=== PATIENT | female | born 1950 | race Caucasian/White ===

== ENCOUNTER 2017-09-11 13:59 | Inpatient (IN) | payer OTHER ==
[~2017-09-11] VITALS: Ht 165.1 cm; Wt 52.6 kg
[~2017-09-11 13:59] MED LIST: ACET250 PO; ACET325 PO; ALBU3IS; ALBU3IS INH; ALBU8HFA2 INH; ALBU90OI; ALBU90OI INH; ALBU90OI6 INH; AMOCLA875 PO; AMOX500 PO; ARIP15; ARIP30 PO; ASPI81EC PO; ATOR10; ATOR20 PO; AZIT250 PO; Advair Hfa 230-12 GM INH; Albuterol2.5 MG/0.5 INH; Aspir 8181 MG PO; BACL10 PO; BISA10S PR; CARV6.25 PO; CHOL10002 PO; CITA20 PO; CLON1; CLOP75 PO; CLOT10 PO; CYCL10 PO; Carbidopa-Levo1 EAC1 PO; DOCU100 PO; DOXY100 PO; DULERA 100 MCG/13 GM INH; DULERA 200 MCG/13 GM INH; Duoneb 2.5-0.5 M3 ML INH; ELIQUIS2.5 MG PO; ERGO400 PO; Ecotrin Low Strength; FAMO20 PO; FERR325 PO; FLUO10 PO; FORM12IH IH; FURO40 PO; Furosemide20 MG PO; GABA300; GABA300 PO; GUAI600T33 PO; HYDACE5 PO; HYDMOR2 PO; HYDPAM25; HYDR1TAB94 PO; IBUP600; IBUP600 PO; IBUP800 PO; IPRA.03NI; Ipratr-Albuterol3 ML IH; LAMO100; LAMO100 PO; LAVAP17G PO; LEVFLO250 PO; LEVFLO500 PO; LEVO750 PO; LEVOFLOXACIN500 MG; LIDO700A20 TOP; LIDOCAINE1 EACH TOP; LOSA25 PO; METPRE4DP PO; MONDOXYNE NL100 MG PO; Mirapex0.5 MG; Mucinex600 MG PO; NAPR500; NAPR550 PO; NEBI10 PO; NICO14TP; NITR.4SL SL; NYST100000 PO; NYST100SU MT; NYST100SU PO; NYSTATIN1 EAC1 PO; Nitrostat0.4 MG SL; OLAN10; OLAN5A; OXYACE5T PO; OXYB5; OXYC5 PO; Oxycodone HCl5 M1; PANT40; PANT40 PO; PENVK500 PO; POTCHL20ER PO; PRAM.5 PO; PRED10 PO; PRED20 PO; PROCODE120 PO; Prednisone10 MG PO; Prednisone20 MG PO; Prozac20 MG; Prozac20 MG PO; RANI150; ROBITUSSIN COU237 ML PO; ROPI.25; SERT100; SERT100 PO; SPIR25 PO; SPIRIVA RESPIMAT4 G1 INH; SPIRIVA RESPIMAT4 GM IH; SUCR1 PO; SULTRIDS PO; TIOT18; TIOT18 INH; TRAM50 PO; TRAZ100; Toprol Xl50 MG PO; Tylenol325 MG PO; VARE1 PO; VITAMIN D31000 UNIT PO; XARELTO20 MG PO; ZYPREXA; Zithromax250 MG PO
[2017-09-11 14:55] LABS: PCO2 Arterial 51.5 mmHg (35-45); PO2 Arterial 54.8 mmHg (80-100); pH Blood Arterial 7.35 (7.35-7.45)
[2017-09-11 14:56] LABS: BASOPHILS ABSOLUTE AUTO 0.08 K/mm3 (0.00-0.23); BASOPHILS PERCENT AUTO 0 % (0-2); EOSINOPHILS ABSOLUTE AUTO 0.15 K/mm3 (0.00-0.68); EOSINOPHILS PERCENT AUTO 1 % (0-6); Hematocrit 27.1 % (33.0-51.0); Hemoglobin 7.6 g/dL (11.5-16.0); IMMATURE GRAN ABSOLUTE AUTO 0.34 K/mm3 (0.00-0.10); IMMATURE GRAN PERCENT AUTO 1 % (0-1); LYMPHOCYTES ABSOLUTE AUTO 1.32 K/mm3 (0.84-5.20); LYMPHOCYTES PERCENT AUTO 5 % (21-46); MONOCYTES ABSOLUTE AUTO 1.41 K/mm3 (0.16-1.47); MONOCYTES PERCENT AUTO 5 % (4-13); Mean Corpuscular HGB 19.9 pg (26.0-34.0); Mean Corpuscular Volume 71 fL (80-100); Mean Platelet Volume 10.5 fL (9.1-12.4); NEUTROPHILS ABSOLUTE AUTO 26.23 K/mm3 (1.96-9.15); NEUTROPHILS PERCENT AUTO 89 % (41-73); Platelet Count 404 K/mm3 (150-400); RDW Coefficient Variation 18.5 % (11.7-14.2); RDW Standard Deviation 46.5 fL (35.1-46.3); Red Blood Cell Count 3.82 M/mm3 (3.80-5.20); White Blood Cell Count 29.53 K/mm3 (4.00-11.30)
[2017-09-11 15:06] LABS: Albumin, Blood 2.8 g/dL (3.4-5.0); Albumin/Globulin Ratio 0.9 (0.8-1.8); Bilirubin, Total 1.1 mg/dL (0.1-1.0); Bun/Creatinine Ratio 24.8 (12.0-20.0); Calcium, Blood 7.6 mg/dL (8.5-10.1); Creatinine, Blood 1.09 mg/dL (0.40-1.00); Globulin, Blood 3.1 g/dL (2.2-4.0); Potassium, Blood 3.4 mmol/L (3.5-5.5); Total Protein, Blood 5.9 g/dL (6.4-8.2)
[2017-09-11 15:17] LABS: BASOPHILS ABSOLUTE MAN 0.29 K/mm3 (0.00-0.23); BASOPHILS PERCENT MAN 1 % (0-2); EOSINOPHILS ABSOLUTE MAN 0.29 K/mm3 (0.00-0.68); EOSINOPHILS PERCENT MAN 1 % (0-6); LYMPHOCYTES ABSOLUTE MAN 1.77 K/mm3 (0.84-5.20); LYMPHOCYTES PERCENT MAN 6 % (21-46); MONOCYTES ABSOLUTE MAN 0.29 K/mm3 (0.16-1.47); MONOCYTES PERCENT MAN 1 % (4-13); NEUTROPHILS ABSOLUTE MAN 26.87 K/mm3 (1.96-9.15); SEG NEUTROPHILS PERCENT MAN 91 % (41-73); TOTAL CELLS COUNTED 100
[2017-09-11 15:20] LABS: Influenza A Negative (NEGATIVE); Influenza B Negative (NEGATIVE)
[2017-09-12] MEDS ORDERED: IBUP800 PO (01:25)
[2017-09-12 06:04] LABS: BASOPHILS ABSOLUTE AUTO 0.09 K/mm3 (0.00-0.23); BASOPHILS PERCENT AUTO 0 % (0-2); EOSINOPHILS ABSOLUTE AUTO 0.16 K/mm3 (0.00-0.68); EOSINOPHILS PERCENT AUTO 1 % (0-6); Hematocrit 27.7 % (33.0-51.0); Hemoglobin 7.7 g/dL (11.5-16.0); IMMATURE GRAN ABSOLUTE AUTO 0.39 K/mm3 (0.00-0.10); IMMATURE GRAN PERCENT AUTO 1 % (0-1); LYMPHOCYTES ABSOLUTE AUTO 1.54 K/mm3 (0.84-5.20); LYMPHOCYTES PERCENT AUTO 5 % (21-46); MONOCYTES ABSOLUTE AUTO 2.18 K/mm3 (0.16-1.47); MONOCYTES PERCENT AUTO 7 % (4-13); Mean Corpuscular HGB 19.6 pg (26.0-34.0); Mean Corpuscular HGB Conc 27.8 g/dL (31.5-36.5); Mean Corpuscular Volume 71 fL (80-100); Mean Platelet Volume 10.5 fL (9.1-12.4); NEUTROPHILS ABSOLUTE AUTO 28.76 K/mm3 (1.96-9.15); NEUTROPHILS PERCENT AUTO 87 % (41-73); Platelet Count 427 K/mm3 (150-400); RDW Coefficient Variation 18.6 % (11.7-14.2); RDW Standard Deviation 46.3 fL (35.1-46.3); Red Blood Cell Count 3.92 M/mm3 (3.80-5.20); White Blood Cell Count 33.12 K/mm3 (4.00-11.30)
[2017-09-12 06:42] LABS: Anion Gap 7 mmol/L (6-16); Blood Urea Nitrogen 25 mg/dL (8-24); Bun/Creatinine Ratio 25.9 (12.0-20.0); CO2, Blood 29 mmol/L (21-32); Calcium, Blood 8.4 mg/dL (8.5-10.1); Chloride, Blood 105 mmol/L (98-108); Creatinine, Blood 0.97 mg/dL (0.40-1.00); Glomerular Filtration Rate >60 (60-); Glucose, Blood 93 mg/dL (70-99); Potassium, Blood 3.7 mmol/L (3.5-5.5); Sodium, Blood 141 mmol/L (136-145)
[2017-09-13 06:00] LABS: Hematocrit 28.9 % (33.0-51.0); Hemoglobin 7.9 g/dL (11.5-16.0); Mean Corpuscular HGB 19.5 pg (26.0-34.0); Mean Corpuscular HGB Conc 27.3 g/dL (31.5-36.5); Mean Corpuscular Volume 71 fL (80-100); Mean Platelet Volume 10.6 fL (9.1-12.4); Platelet Count 413 K/mm3 (150-400); RDW Coefficient Variation 18.7 % (11.7-14.2); RDW Standard Deviation 47.6 fL (35.1-46.3); Red Blood Cell Count 4.05 M/mm3 (3.80-5.20); White Blood Cell Count 18.81 K/mm3 (4.00-11.30)
[2017-09-14 05:15] LABS: Hemoglobin 7.9 g/dL (11.5-16.0); Mean Corpuscular HGB 19.8 pg (26.0-34.0); Mean Corpuscular HGB Conc 28.2 g/dL (31.5-36.5); Mean Corpuscular Volume 70 fL (80-100); Platelet Count 424 K/mm3 (150-400); RDW Coefficient Variation 18.5 % (11.7-14.2); RDW Standard Deviation 45.8 fL (35.1-46.3); White Blood Cell Count 14.56 K/mm3 (4.00-11.30)
[2017-09-14] MEDS ORDERED: LEVO750 PO (12:22)
[2017-09-14] MEDS ORDERED: ALBU3IS INH (12:23)
[2017-09-14] MEDS ORDERED: OXYC5 PO (12:24)
[2017-09-14] MEDS ORDERED: PRAM.5 PO (12:25)
[2017-09-14] MEDS ORDERED: Ferrous Sulfat325 MG PO (12:25)
[2017-09-14] MEDS ORDERED: GAVILAX17 GM PO (12:26)
[2017-09-19] MEDS ORDERED: SPIRIVA RESPIMAT4 G1 INH (13:57)
[2018-01-20] MEDS ORDERED: Albuterol2.5 MG/0.5 INH (10:41)
[2018-01-20] MEDS ORDERED: NITR.4SL SL (10:41)
[2018-01-20] MEDS ORDERED: Ipratr-Albuterol3 ML INH (10:42)
[2018-01-20] MEDS ORDERED: ASPI81CH PO (10:43)
[2018-01-20] MEDS ORDERED: Prozac20 MG PO (10:43)
[2018-01-20] MEDS ORDERED: NYST100000 MT (10:44)
[2018-01-20] MEDS ORDERED: FLONASE ALLERG9.9 ML INH (10:44)
[2018-01-20] MEDS ORDERED: MIRALAX17 GM PO (10:46)
== END 2017-09-14 13:43 | disposition home health service (06) | DRG 871 ==
LOC: ER 13:59 → MEDS 14:00 → ER 14:00 → MEDS 17:41 → ER 17:42 → MEDS 17:42 → ENPENDDIS 09-14 10:30 → MEDS 09-14 13:43
PROVIDERS: Emergency Medicine; Internal Medicine
DX: A41.9 Sepsis, unspecified organism (principal); J18.9 Pneumonia, unspecified organism; J96.21 Acute and chronic respiratory failure with hypoxia; I11.0 Hypertensive heart disease with heart failure; I50.42 Chronic combined systolic (congestive) and diastolic (congestive) heart failure; J96.12 Chronic respiratory failure with hypercapnia; J96.22 Acute and chronic respiratory failure with hypercapnia; J44.1 Chronic obstructive pulmonary disease with (acute) exacerbation; D64.9 Anemia, unspecified; D72.829 Elevated white blood cell count, unspecified; F32.9 Major depressive disorder, single episode, unspecified; F43.10 Post-traumatic stress disorder, unspecified; G25.81 Restless legs syndrome; I25.5 Ischemic cardiomyopathy; Z74.09 Other reduced mobility; Z79.01 Long term (current) use of anticoagulants; Y95 Nosocomial condition; Z87.891 Personal history of nicotine dependence
CPT/HCPCS: 36415; 36600; 71046; 73502; 80048; 80053; 82565; 82803; 83880; 84145; 85025; 85027; 86850; 86900; 86901; 87070; 87205; 87449; 87804; 94640; 94644; 94760; 96374; 99285; J1650; J1956; J2185; J2916; J3370; J7030

== ENCOUNTER 2018-01-06 10:08 | Observation (INO) | payer OTHER ==
[~2018-01-06] VITALS: Ht 165.1 cm; Wt 58.1 kg
[~2018-01-06 10:08] MED LIST changes: +Ferrous Sulfat325 MG PO; +GAVILAX17 GM PO
[2018-01-06] MEDS ORDERED: XARELTO20 MG PO (10:38)
[2018-01-06 10:47] LABS: BASOPHILS ABSOLUTE AUTO 0.06 K/mm3 (0.00-0.23); BASOPHILS PERCENT AUTO 0 % (0-2); EOSINOPHILS ABSOLUTE AUTO 0.09 K/mm3 (0.00-0.68); EOSINOPHILS PERCENT AUTO 1 % (0-6); Hematocrit 31.2 % (33.0-51.0); Hemoglobin 8.9 g/dL (11.5-16.0); IMMATURE GRAN ABSOLUTE AUTO 0.13 K/mm3 (0.00-0.10); IMMATURE GRAN PERCENT AUTO 1 % (0-1); LYMPHOCYTES ABSOLUTE AUTO 1.08 K/mm3 (0.84-5.20); LYMPHOCYTES PERCENT AUTO 7 % (21-46); MONOCYTES ABSOLUTE AUTO 2.27 K/mm3 (0.16-1.47); MONOCYTES PERCENT AUTO 14 % (4-13); Mean Corpuscular HGB 20.4 pg (26.0-34.0); Mean Corpuscular HGB Conc 28.5 g/dL (31.5-36.5); Mean Corpuscular Volume 71 fL (80-100); Mean Platelet Volume 10.3 fL (9.1-12.4); NEUTROPHILS PERCENT AUTO 77 % (41-73); Platelet Count 221 K/mm3 (150-400); RDW Coefficient Variation 18.5 % (11.7-14.2); RDW Standard Deviation 47.4 fL (35.1-46.3); Red Blood Cell Count 4.37 M/mm3 (3.80-5.20); White Blood Cell Count 16.13 K/mm3 (4.00-11.30)
[2018-01-06 11:03] LABS: Troponin I 0.066 ng/mL (0.000-0.040)
[2018-01-06 11:04] LABS: Alanine Aminotransfer (ALT/SGP 19 U/L (12-78); Albumin, Blood 2.6 g/dL (3.4-5.0); Albumin/Globulin Ratio 0.7 (0.8-1.8); Alk Phos 136 U/L (50-136); Anion Gap 6 mmol/L (6-16); Aspartate Aminotrans (AST/SGOT 12 U/L (12-37); Bilirubin, Total 0.7 mg/dL (0.1-1.0); Blood Urea Nitrogen 13 mg/dL (8-24); Bun/Creatinine Ratio 17.5 (12.0-20.0); CO2, Blood 31 mmol/L (21-32); Calcium, Blood 8.3 mg/dL (8.5-10.1); Chloride, Blood 105 mmol/L (98-108); Creatinine, Blood 0.74 mg/dL (0.40-1.00); Globulin, Blood 3.6 g/dL (2.2-4.0); Glomerular Filtration Rate >60 (60-); Glucose, Blood 103 mg/dL (70-99); Potassium, Blood 3.9 mmol/L (3.5-5.5); Sodium, Blood 142 mmol/L (136-145); Total Protein, Blood 6.2 g/dL (6.4-8.2)
[2018-01-06] MEDS ORDERED: ALBU90OI61 INH (16:01)
[2018-01-06] MEDS ORDERED: DICL25ER (16:08)
[2018-01-07 04:55] LABS: BASOPHILS ABSOLUTE AUTO 0.02 K/mm3 (0.00-0.23); BASOPHILS PERCENT AUTO 0 % (0-2); EOSINOPHILS PERCENT AUTO 0 % (0-6); Hematocrit 33.6 % (33.0-51.0); Hemoglobin 9.5 g/dL (11.5-16.0); IMMATURE GRAN ABSOLUTE AUTO 0.06 K/mm3 (0.00-0.10); IMMATURE GRAN PERCENT AUTO 1 % (0-1); LYMPHOCYTES ABSOLUTE AUTO 0.48 K/mm3 (0.84-5.20); LYMPHOCYTES PERCENT AUTO 5 % (21-46); MONOCYTES ABSOLUTE AUTO 0.42 K/mm3 (0.16-1.47); MONOCYTES PERCENT AUTO 4 % (4-13); Mean Corpuscular HGB 20.2 pg (26.0-34.0); Mean Corpuscular HGB Conc 28.3 g/dL (31.5-36.5); Mean Corpuscular Volume 72 fL (80-100); Mean Platelet Volume 11.1 fL (9.1-12.4); NEUTROPHILS ABSOLUTE AUTO 9.64 K/mm3 (1.96-9.15); NEUTROPHILS PERCENT AUTO 91 % (41-73); Platelet Count 243 K/mm3 (150-400); RDW Coefficient Variation 18.5 % (11.7-14.2); RDW Standard Deviation 46.8 fL (35.1-46.3); White Blood Cell Count 10.62 K/mm3 (4.00-11.30)
[2018-01-07 05:14] LABS: Anion Gap 5 mmol/L (6-16); Blood Urea Nitrogen 27 mg/dL (8-24); Bun/Creatinine Ratio 30.4 (12.0-20.0); CO2, Blood 32 mmol/L (21-32); Calcium, Blood 8.8 mg/dL (8.5-10.1); Chloride, Blood 104 mmol/L (98-108); Creatinine, Blood 0.89 mg/dL (0.40-1.00); Glomerular Filtration Rate >60 (60-); Glucose, Blood 187 mg/dL (70-99); Potassium, Blood 4.3 mmol/L (3.5-5.5); Sodium, Blood 141 mmol/L (136-145)
== END 2018-01-07 11:49 | disposition home or self-care (01) ==
LOC: ER 10:08 → MEDS 10:09 → ER 12:33 → MEDS 12:33
PROVIDERS: Emergency Medicine; Hospitalist
DX: J96.21 Acute and chronic respiratory failure with hypoxia (principal); J44.1 Chronic obstructive pulmonary disease with (acute) exacerbation; I11.0 Hypertensive heart disease with heart failure; I50.20 Unspecified systolic (congestive) heart failure; I25.5 Ischemic cardiomyopathy; K21.9 Gastro-esophageal reflux disease without esophagitis; E78.5 Hyperlipidemia, unspecified; F43.10 Post-traumatic stress disorder, unspecified; F32.9 Major depressive disorder, single episode, unspecified; Z95.5 Presence of coronary angioplasty implant and graft; Z79.02 Long term (current) use of antithrombotics/antiplatelets; Z79.82 Long term (current) use of aspirin; Z79.899 Other long term (current) drug therapy; Z88.0 Allergy status to penicillin; Z88.8 Allergy status to other drugs, medicaments and biological substances; Z91.041 Radiographic dye allergy status; Z87.891 Personal history of nicotine dependence
CPT/HCPCS: 36415; 71046; 80048; 80053; 83880; 84484; 85025; 93005; 93010; 94640; 94760; 96374; 96375; 96376; 99285; G0378; J1940; J2930

== ENCOUNTER 2018-01-20 09:31 | Inpatient (IN) | payer OTHER ==
[~2018-01-20] VITALS: Ht 165.1 cm; Wt 58.2 kg
[~2018-01-20 09:31] MED LIST changes: +ALBU90OI61 INH; +DICL25ER
[2018-01-20 09:58] LABS: BASOPHILS ABSOLUTE AUTO 0.07 K/mm3 (0.00-0.23); BASOPHILS PERCENT AUTO 0 % (0-2); EOSINOPHILS ABSOLUTE AUTO 0.13 K/mm3 (0.00-0.68); EOSINOPHILS PERCENT AUTO 1 % (0-6); Hematocrit 28.7 % (33.0-51.0); IMMATURE GRAN ABSOLUTE AUTO 0.11 K/mm3 (0.00-0.10); IMMATURE GRAN PERCENT AUTO 1 % (0-1); LYMPHOCYTES ABSOLUTE AUTO 0.95 K/mm3 (0.84-5.20); LYMPHOCYTES PERCENT AUTO 6 % (21-46); MONOCYTES ABSOLUTE AUTO 1.37 K/mm3 (0.16-1.47); MONOCYTES PERCENT AUTO 8 % (4-13); Mean Corpuscular HGB 20.1 pg (26.0-34.0); Mean Corpuscular HGB Conc 27.9 g/dL (31.5-36.5); Mean Corpuscular Volume 72 fL (80-100); Mean Platelet Volume 10.5 fL (9.1-12.4); NEUTROPHILS ABSOLUTE AUTO 14.68 K/mm3 (1.96-9.15); NEUTROPHILS PERCENT AUTO 85 % (41-73); Platelet Count 379 K/mm3 (150-400); RDW Coefficient Variation 18.9 % (11.7-14.2); RDW Standard Deviation 48.4 fL (35.1-46.3); Red Blood Cell Count 3.99 M/mm3 (3.80-5.20); White Blood Cell Count 17.31 K/mm3 (4.00-11.30)
[2018-01-20 10:14] LABS: Alanine Aminotransfer (ALT/SGP 19 U/L (12-78); Albumin, Blood 2.5 g/dL (3.4-5.0); Albumin/Globulin Ratio 0.6 (0.8-1.8); Alk Phos 150 U/L (50-136); Anion Gap 6 mmol/L (6-16); Aspartate Aminotrans (AST/SGOT 10 U/L (12-37); Bilirubin, Total 0.8 mg/dL (0.1-1.0); Blood Urea Nitrogen 17 mg/dL (8-24); Bun/Creatinine Ratio 23.1 (12.0-20.0); CO2, Blood 31 mmol/L (21-32); Calcium, Blood 8.2 mg/dL (8.5-10.1); Chloride, Blood 105 mmol/L (98-108); Creatinine, Blood 0.74 mg/dL (0.40-1.00); Glomerular Filtration Rate >60 (60-); Glucose, Blood 158 mg/dL (70-99); Potassium, Blood 4.4 mmol/L (3.5-5.5); Sodium, Blood 142 mmol/L (136-145); Total Protein, Blood 6.5 g/dL (6.4-8.2)
[2018-01-20] MEDS ORDERED: ATOR20 PO (10:38)
[2018-01-20] MEDS ORDERED: PRAM.5 PO (10:39)
[2018-01-20] MEDS ORDERED: CARV6.25 PO (10:40)
[2018-01-20] MEDS ORDERED: FURO40 PO (10:40)
[2018-01-20] MEDS ORDERED: POTCHL20ER PO (10:40)
[2018-01-20] MEDS ORDERED: XARELTO20 MG PO (10:41)
[2018-01-20] MEDS ORDERED: NITR.4SL (10:41)
[2018-01-20] MEDS ORDERED: Albuterol2.5 MG/0.5 (10:41)
[2018-01-20] MEDS ORDERED: CLOT10 (10:41)
[2018-01-20] MEDS ORDERED: ALBU90OI6 (10:42)
[2018-01-20] MEDS ORDERED: Ipratr-Albuterol3 ML (10:42)
[2018-01-20] MEDS ORDERED: TIOT18 (10:43)
[2018-01-20] MEDS ORDERED: DULERA 200 MCG/13 GM (10:43)
[2018-01-20] MEDS ORDERED: Prozac20 MG (10:43)
[2018-01-20] MEDS ORDERED: LOSA25 PO (10:43)
[2018-01-20] MEDS ORDERED: ASPI81CH (10:43)
[2018-01-20] MEDS ORDERED: IBUP600 (10:43)
[2018-01-20] MEDS ORDERED: FLONASE SENSIM9.9 ML (10:44)
[2018-01-20] MEDS ORDERED: ERGO400 (10:44)
[2018-01-20] MEDS ORDERED: NYST100000 (10:44)
[2018-01-20] MEDS ORDERED: OXYC5 PO (10:45)
[2018-01-20] MEDS ORDERED: CLOP75 PO (10:45)
[2018-01-20] MEDS ORDERED: Ferrous Sulfat325 M2 PO (10:45)
[2018-01-20] MEDS ORDERED: PANT40 PO (10:45)
[2018-01-20] MEDS ORDERED: MIRALAX17 GM (10:46)
[2018-01-20] MEDS ORDERED: Voltaren100 GM (10:46)
[2018-01-21 05:29] LABS: BASOPHILS ABSOLUTE AUTO 0.02 K/mm3 (0.00-0.23); BASOPHILS PERCENT AUTO 0 % (0-2); EOSINOPHILS PERCENT AUTO 0 % (0-6); Hematocrit 29.5 % (33.0-51.0); Hemoglobin 8.2 g/dL (11.5-16.0); IMMATURE GRAN ABSOLUTE AUTO 0.08 K/mm3 (0.00-0.10); IMMATURE GRAN PERCENT AUTO 1 % (0-1); LYMPHOCYTES ABSOLUTE AUTO 0.49 K/mm3 (0.84-5.20); LYMPHOCYTES PERCENT AUTO 5 % (21-46); MONOCYTES ABSOLUTE AUTO 0.39 K/mm3 (0.16-1.47); MONOCYTES PERCENT AUTO 4 % (4-13); Mean Corpuscular HGB 20.4 pg (26.0-34.0); Mean Corpuscular HGB Conc 27.8 g/dL (31.5-36.5); Mean Corpuscular Volume 73 fL (80-100); Mean Platelet Volume 10.1 fL (9.1-12.4); NEUTROPHILS ABSOLUTE AUTO 9.32 K/mm3 (1.96-9.15); NEUTROPHILS PERCENT AUTO 90 % (41-73); Platelet Count 395 K/mm3 (150-400); RDW Coefficient Variation 18.6 % (11.7-14.2); RDW Standard Deviation 49.7 fL (35.1-46.3); Red Blood Cell Count 4.02 M/mm3 (3.80-5.20)
[2018-01-21] MEDS ORDERED: PRED20 PO (10:55)
== END 2018-01-21 11:20 | disposition home health service (06) | DRG 190 ==
LOC: ER 09:31 → MEDS 11:18 → ENPENDDIS 01-21 09:29 → MEDS 01-21 11:20
PROVIDERS: Emergency Medicine; Internal Medicine
DX: J44.1 Chronic obstructive pulmonary disease with (acute) exacerbation (principal); J96.21 Acute and chronic respiratory failure with hypoxia; I50.40 Unspecified combined systolic (congestive) and diastolic (congestive) heart failure; J84.9 Interstitial pulmonary disease, unspecified; I25.5 Ischemic cardiomyopathy; I11.0 Hypertensive heart disease with heart failure; I25.10 Atherosclerotic heart disease of native coronary artery without angina pectoris; F32.9 Major depressive disorder, single episode, unspecified; E78.5 Hyperlipidemia, unspecified
CPT/HCPCS: 36415; 71045; 80053; 83880; 85025; 93005; 93010; 94640; 94644; 94760; 96365; 97162; 97530; 99285; G8978; G8979; G8980; J0456; J0696; J2920; J7030; J7050

== ENCOUNTER 2018-01-30 12:37 | Inpatient (IN) | payer OTHER ==
[~2018-01-30] VITALS: Ht 165.1 cm; Wt 58.5 kg
[~2018-01-30 12:37] MED LIST changes: +ALBU90OI6; +ASPI81CH PO; +CLOT10; +DULERA 200 MCG/13 GM; +ERGO400; +FLONASE ALLERG9.9 ML INH; +Ferrous Sulfat325 M2 PO; +Ipratr-Albuterol3 ML INH; +MIRALAX17 GM PO; +NYST100000 MT; +Voltaren100 GM
[2018-01-30 13:10] LABS: PCO2 Arterial 44.4 mmHg (35-45); PO2 Arterial 30.9 mmHg (80-100); pH Blood Arterial 7.48 (7.35-7.45)
[2018-01-30 13:29] LABS: BASOPHILS ABSOLUTE AUTO 0.05 K/mm3 (0.00-0.23); BASOPHILS PERCENT AUTO 0 % (0-2); EOSINOPHILS ABSOLUTE AUTO 0.11 K/mm3 (0.00-0.68); EOSINOPHILS PERCENT AUTO 1 % (0-6); Hematocrit 28.2 % (33.0-51.0); IMMATURE GRAN ABSOLUTE AUTO 0.47 K/mm3 (0.00-0.10); IMMATURE GRAN PERCENT AUTO 2 % (0-1); LYMPHOCYTES ABSOLUTE AUTO 0.94 K/mm3 (0.84-5.20); LYMPHOCYTES PERCENT AUTO 4 % (21-46); MONOCYTES ABSOLUTE AUTO 2.07 K/mm3 (0.16-1.47); MONOCYTES PERCENT AUTO 9 % (4-13); Mean Corpuscular HGB 20.1 pg (26.0-34.0); Mean Corpuscular HGB Conc 28.4 g/dL (31.5-36.5); Mean Corpuscular Volume 71 fL (80-100); Mean Platelet Volume 10.6 fL (9.1-12.4); NEUTROPHILS ABSOLUTE AUTO 18.41 K/mm3 (1.96-9.15); NEUTROPHILS PERCENT AUTO 84 % (41-73); Platelet Count 413 K/mm3 (150-400); RDW Coefficient Variation 18.5 % (11.7-14.2); RDW Standard Deviation 46.7 fL (35.1-46.3); Red Blood Cell Count 3.99 M/mm3 (3.80-5.20); White Blood Cell Count 22.05 K/mm3 (4.00-11.30)
[2018-01-30 13:44] LABS: Alanine Aminotransfer (ALT/SGP 24 U/L (12-78); Albumin, Blood 2.2 g/dL (3.4-5.0); Albumin/Globulin Ratio 0.5 (0.8-1.8); Alk Phos 175 U/L (50-136); Anion Gap 8 mmol/L (6-16); Aspartate Aminotrans (AST/SGOT 15 U/L (12-37); Bilirubin, Total 0.5 mg/dL (0.1-1.0); Blood Urea Nitrogen 27 mg/dL (8-24); Bun/Creatinine Ratio 29.2 (12.0-20.0); CO2, Blood 31 mmol/L (21-32); Calcium, Blood 8.4 mg/dL (8.5-10.1); Chloride, Blood 100 mmol/L (98-108); Creatinine, Blood 0.93 mg/dL (0.40-1.00); Globulin, Blood 4.4 g/dL (2.2-4.0); Glomerular Filtration Rate >60 (60-); Glucose, Blood 128 mg/dL (70-99); Magnesium, Blood 2.1 mg/dL (1.6-2.4); Potassium, Blood 5.1 mmol/L (3.5-5.5); Sodium, Blood 139 mmol/L (136-145); Total Protein, Blood 6.6 g/dL (6.4-8.2); Troponin I <0.015 ng/mL (0.000-0.040)
[2018-01-30] MEDS ORDERED: ERGO400 PO (14:06)
[2018-01-30] MEDS ORDERED: CLOT10 (14:07)
[2018-01-30] MEDS ORDERED: DICL25ER PO (14:09)
[2018-01-30] MEDS ORDERED: ALBU90OI6 INH (14:11)
[2018-01-30] MEDS ORDERED: TIOT18 (14:12)
[2018-01-31 04:11] LABS: BASOPHILS ABSOLUTE AUTO 0.03 K/mm3 (0.00-0.23); BASOPHILS PERCENT AUTO 0 % (0-2); EOSINOPHILS PERCENT AUTO 0 % (0-6); Hematocrit 27.7 % (33.0-51.0); Hemoglobin 7.8 g/dL (11.5-16.0); IMMATURE GRAN ABSOLUTE AUTO 0.36 K/mm3 (0.00-0.10); IMMATURE GRAN PERCENT AUTO 2 % (0-1); LYMPHOCYTES ABSOLUTE AUTO 0.51 K/mm3 (0.84-5.20); LYMPHOCYTES PERCENT AUTO 3 % (21-46); MONOCYTES ABSOLUTE AUTO 0.45 K/mm3 (0.16-1.47); MONOCYTES PERCENT AUTO 3 % (4-13); Mean Corpuscular HGB 19.8 pg (26.0-34.0); Mean Corpuscular HGB Conc 28.2 g/dL (31.5-36.5); Mean Corpuscular Volume 71 fL (80-100); Mean Platelet Volume 10.3 fL (9.1-12.4); NEUTROPHILS ABSOLUTE AUTO 15.69 K/mm3 (1.96-9.15); NEUTROPHILS PERCENT AUTO 92 % (41-73); Platelet Count 408 K/mm3 (150-400); RDW Coefficient Variation 18.6 % (11.7-14.2); RDW Standard Deviation 46.9 fL (35.1-46.3); Red Blood Cell Count 3.93 M/mm3 (3.80-5.20); White Blood Cell Count 17.04 K/mm3 (4.00-11.30)
[2018-01-31 04:16] LABS: PCO2 Arterial 58.6 mmHg (35-45); PO2 Arterial 60.3 mmHg (80-100); pH Blood Arterial 7.35 (7.35-7.45)
[2018-01-31 04:32] LABS: Anion Gap 5 mmol/L (6-16); Blood Urea Nitrogen 21 mg/dL (8-24); Bun/Creatinine Ratio 29.2 (12.0-20.0); CO2, Blood 32 mmol/L (21-32); Calcium, Blood 8.8 mg/dL (8.5-10.1); Chloride, Blood 102 mmol/L (98-108); Creatinine, Blood 0.72 mg/dL (0.40-1.00); Glomerular Filtration Rate >60 (60-); Glucose, Blood 179 mg/dL (70-99); Potassium, Blood 5.6 mmol/L (3.5-5.5); Sodium, Blood 139 mmol/L (136-145)
[2018-01-31] MEDS ORDERED: PANT40 PO (18:47)
[2018-01-31] MEDS ORDERED: Mirapex1 MG PO (18:48)
[2018-01-31] MEDS ORDERED: Voltaren100 GM TOP (18:49)
[2018-02-01 05:16] LABS: Hematocrit 28.8 % (33.0-51.0); Hemoglobin 8.4 g/dL (11.5-16.0); Mean Corpuscular HGB Conc 29.2 g/dL (31.5-36.5); Mean Corpuscular Volume 72 fL (80-100); Mean Platelet Volume 10.1 fL (9.1-12.4); NRBC ABSOLUTE 0.04 K/mm3 (0.00-0.02); NRBC Auto 0.2 /100 WBC (0.0-0.2); Platelet Count 457 K/mm3 (150-400); RDW Standard Deviation 49.3 fL (35.1-46.3); White Blood Cell Count 20.34 K/mm3 (4.00-11.30)
[2018-02-01 05:43] LABS: Alanine Aminotransfer (ALT/SGP 22 U/L (12-78); Albumin, Blood 2.1 g/dL (3.4-5.0); Albumin/Globulin Ratio 0.5 (0.8-1.8); Alk Phos 153 U/L (50-136); Anion Gap 7 mmol/L (6-16); Aspartate Aminotrans (AST/SGOT 13 U/L (12-37); Bilirubin, Total 0.4 mg/dL (0.1-1.0); Blood Urea Nitrogen 37 mg/dL (8-24); Bun/Creatinine Ratio 47.3 (12.0-20.0); CO2, Blood 31 mmol/L (21-32); Calcium, Blood 8.8 mg/dL (8.5-10.1); Chloride, Blood 100 mmol/L (98-108); Creatinine, Blood 0.78 mg/dL (0.40-1.00); Globulin, Blood 4.3 g/dL (2.2-4.0); Glomerular Filtration Rate >60 (60-); Glucose, Blood 223 mg/dL (70-99); Potassium, Blood 4.9 mmol/L (3.5-5.5); Sodium, Blood 138 mmol/L (136-145); Total Protein, Blood 6.4 g/dL (6.4-8.2)
[2018-02-01 11:31] LABS: Stool Occult Blood Guaiac 1 Neg (Neg)
[2018-02-02 08:20] LABS: BASOPHILS ABSOLUTE AUTO 0.02 K/mm3 (0.00-0.23); BASOPHILS PERCENT AUTO 0 % (0-2); EOSINOPHILS PERCENT AUTO 0 % (0-6); Hematocrit 29.8 % (33.0-51.0); Hemoglobin 8.6 g/dL (11.5-16.0); IMMATURE GRAN ABSOLUTE AUTO 0.39 K/mm3 (0.00-0.10); IMMATURE GRAN PERCENT AUTO 2 % (0-1); LYMPHOCYTES ABSOLUTE AUTO 0.61 K/mm3 (0.84-5.20); LYMPHOCYTES PERCENT AUTO 4 % (21-46); MONOCYTES ABSOLUTE AUTO 0.68 K/mm3 (0.16-1.47); MONOCYTES PERCENT AUTO 4 % (4-13); Mean Corpuscular HGB 21.1 pg (26.0-34.0); Mean Corpuscular HGB Conc 28.9 g/dL (31.5-36.5); Mean Corpuscular Volume 73 fL (80-100); Mean Platelet Volume 10.1 fL (9.1-12.4); NEUTROPHILS ABSOLUTE AUTO 15.68 K/mm3 (1.96-9.15); NEUTROPHILS PERCENT AUTO 90 % (41-73); NRBC ABSOLUTE 0.03 K/mm3 (0.00-0.02); NRBC Auto 0.2 /100 WBC (0.0-0.2); Platelet Count 476 K/mm3 (150-400); RDW Coefficient Variation 19.9 % (11.7-14.2); RDW Standard Deviation 51.9 fL (35.1-46.3); Red Blood Cell Count 4.07 M/mm3 (3.80-5.20); White Blood Cell Count 17.38 K/mm3 (4.00-11.30)
[2018-02-02 08:41] LABS: Anion Gap 6 mmol/L (6-16); Blood Urea Nitrogen 41 mg/dL (8-24); Bun/Creatinine Ratio 60.3 (12.0-20.0); CO2, Blood 35 mmol/L (21-32); Calcium, Blood 8.5 mg/dL (8.5-10.1); Chloride, Blood 98 mmol/L (98-108); Creatinine, Blood 0.68 mg/dL (0.40-1.00); Glomerular Filtration Rate >60 (60-); Glucose, Blood 128 mg/dL (70-99); Magnesium, Blood 2.3 mg/dL (1.6-2.4); Potassium, Blood 5.3 mmol/L (3.5-5.5); Sodium, Blood 139 mmol/L (136-145)
[2018-02-02 08:44] LABS: Vancomycin, Trough 20.5 ug/mL (5.0-10.0)
[2018-02-03 05:12] LABS: BASOPHILS ABSOLUTE AUTO 0.02 K/mm3 (0.00-0.23); BASOPHILS PERCENT AUTO 0 % (0-2); EOSINOPHILS PERCENT AUTO 0 % (0-6); Hematocrit 31.5 % (33.0-51.0); IMMATURE GRAN ABSOLUTE AUTO 0.42 K/mm3 (0.00-0.10); IMMATURE GRAN PERCENT AUTO 3 % (0-1); LYMPHOCYTES PERCENT AUTO 4 % (21-46); MONOCYTES ABSOLUTE AUTO 0.91 K/mm3 (0.16-1.47); MONOCYTES PERCENT AUTO 6 % (4-13); Mean Corpuscular HGB 21.1 pg (26.0-34.0); Mean Corpuscular HGB Conc 28.6 g/dL (31.5-36.5); Mean Corpuscular Volume 74 fL (80-100); Mean Platelet Volume 9.8 fL (9.1-12.4); NEUTROPHILS ABSOLUTE AUTO 12.29 K/mm3 (1.96-9.15); NEUTROPHILS PERCENT AUTO 86 % (41-73); Platelet Count 463 K/mm3 (150-400); RDW Coefficient Variation 20.3 % (11.7-14.2); RDW Standard Deviation 53.5 fL (35.1-46.3); Red Blood Cell Count 4.26 M/mm3 (3.80-5.20); White Blood Cell Count 14.24 K/mm3 (4.00-11.30)
[2018-02-03 05:32] LABS: Albumin, Blood 2.2 g/dL (3.4-5.0); Anion Gap 4 mmol/L (6-16); Blood Urea Nitrogen 35 mg/dL (8-24); Bun/Creatinine Ratio 52.8 (12.0-20.0); CO2, Blood 38 mmol/L (21-32); Calcium, Blood 8.5 mg/dL (8.5-10.1); Chloride, Blood 98 mmol/L (98-108); Creatinine, Blood 0.66 mg/dL (0.40-1.00); Glomerular Filtration Rate >60 (60-); Glucose, Blood 187 mg/dL (70-99); Phosphorus, Blood 3.1 mg/dL (2.5-4.9); Potassium, Blood 4.5 mmol/L (3.5-5.5); Sodium, Blood 140 mmol/L (136-145)
[2018-02-04 03:26] LABS: BASOPHILS ABSOLUTE AUTO 0.02 K/mm3 (0.00-0.23); BASOPHILS PERCENT AUTO 0 % (0-2); EOSINOPHILS PERCENT AUTO 0 % (0-6); Hematocrit 31.6 % (33.0-51.0); Hemoglobin 9.1 g/dL (11.5-16.0); IMMATURE GRAN ABSOLUTE AUTO 0.58 K/mm3 (0.00-0.10); IMMATURE GRAN PERCENT AUTO 4 % (0-1); LYMPHOCYTES ABSOLUTE AUTO 0.57 K/mm3 (0.84-5.20); LYMPHOCYTES PERCENT AUTO 4 % (21-46); MONOCYTES ABSOLUTE AUTO 0.73 K/mm3 (0.16-1.47); MONOCYTES PERCENT AUTO 5 % (4-13); Mean Corpuscular HGB 21.1 pg (26.0-34.0); Mean Corpuscular HGB Conc 28.8 g/dL (31.5-36.5); Mean Corpuscular Volume 73 fL (80-100); Mean Platelet Volume 9.4 fL (9.1-12.4); NEUTROPHILS ABSOLUTE AUTO 13.26 K/mm3 (1.96-9.15); NEUTROPHILS PERCENT AUTO 88 % (41-73); Platelet Count 461 K/mm3 (150-400); RDW Coefficient Variation 20.4 % (11.7-14.2); RDW Standard Deviation 53.4 fL (35.1-46.3); Red Blood Cell Count 4.31 M/mm3 (3.80-5.20); White Blood Cell Count 15.16 K/mm3 (4.00-11.30)
[2018-02-04 03:42] LABS: Albumin, Blood 2.2 g/dL (3.4-5.0); Anion Gap 5 mmol/L (6-16); Blood Urea Nitrogen 34 mg/dL (8-24); Bun/Creatinine Ratio 41.1 (12.0-20.0); CO2, Blood 38 mmol/L (21-32); Calcium, Blood 8.2 mg/dL (8.5-10.1); Chloride, Blood 97 mmol/L (98-108); Creatinine, Blood 0.83 mg/dL (0.40-1.00); Glomerular Filtration Rate >60 (60-); Glucose, Blood 199 mg/dL (70-99); Phosphorus, Blood 2.5 mg/dL (2.5-4.9); Potassium, Blood 4.6 mmol/L (3.5-5.5); Sodium, Blood 140 mmol/L (136-145)
[2018-02-04 11:21] LABS: Vancomycin, Trough 18.1 ug/mL (5.0-10.0)
[2018-02-05 05:33] LABS: BASOPHILS ABSOLUTE AUTO 0.02 K/mm3 (0.00-0.23); BASOPHILS PERCENT AUTO 0 % (0-2); EOSINOPHILS ABSOLUTE AUTO 0.01 K/mm3 (0.00-0.68); EOSINOPHILS PERCENT AUTO 0 % (0-6); Hematocrit 32.4 % (33.0-51.0); Hemoglobin 9.4 g/dL (11.5-16.0); IMMATURE GRAN ABSOLUTE AUTO 0.82 K/mm3 (0.00-0.10); IMMATURE GRAN PERCENT AUTO 5 % (0-1); LYMPHOCYTES ABSOLUTE AUTO 0.89 K/mm3 (0.84-5.20); LYMPHOCYTES PERCENT AUTO 6 % (21-46); MONOCYTES PERCENT AUTO 6 % (4-13); Mean Corpuscular HGB 21.3 pg (26.0-34.0); Mean Corpuscular Volume 74 fL (80-100); Mean Platelet Volume 9.7 fL (9.1-12.4); NEUTROPHILS ABSOLUTE AUTO 13.33 K/mm3 (1.96-9.15); NEUTROPHILS PERCENT AUTO 84 % (41-73); Platelet Count 487 K/mm3 (150-400); RDW Coefficient Variation 20.8 % (11.7-14.2); RDW Standard Deviation 54.4 fL (35.1-46.3); Red Blood Cell Count 4.41 M/mm3 (3.80-5.20); White Blood Cell Count 15.97 K/mm3 (4.00-11.30)
[2018-02-05 05:50] LABS: BAND PERCENT MAN 1 % (0-8); BASOPHILS PERCENT MAN 0 % (0-2); EOSINOPHILS PERCENT MAN 0 % (0-6); LYMPHOCYTES ABSOLUTE MAN 0.47 K/mm3 (0.84-5.20); LYMPHOCYTES PERCENT MAN 3 % (21-46); METAMYELOCYTE ABSOLUTE MAN 0.31 K/mm3 (0.00-0.00); METAMYELOCYTE PERCENT MAN 2 % (0-0); MONOCYTES ABSOLUTE MAN 0.31 K/mm3 (0.16-1.47); MONOCYTES PERCENT MAN 2 % (4-13); MYELOCYTE ABSOLUTE MAN 0.31 K/mm3 (0.00-0.00); MYELOCYTE PERCENT MAN 2 % (0-0); NEUTROPHILS ABSOLUTE MAN 14.53 K/mm3 (1.96-9.15); SEG NEUTROPHILS PERCENT MAN 90 % (41-73); TOTAL CELLS COUNTED 100
[2018-02-05 05:51] LABS: Anion Gap 4 mmol/L (6-16); Blood Urea Nitrogen 33 mg/dL (8-24); Bun/Creatinine Ratio 55.3 (12.0-20.0); CO2, Blood 41 mmol/L (21-32); Calcium, Blood 8.3 mg/dL (8.5-10.1); Chloride, Blood 97 mmol/L (98-108); Glomerular Filtration Rate >60 (60-); Glucose, Blood 152 mg/dL (70-99); Potassium, Blood 4.4 mmol/L (3.5-5.5); Sodium, Blood 142 mmol/L (136-145)
[2018-02-06 05:07] LABS: Hematocrit 31.7 % (33.0-51.0); Hemoglobin 9.4 g/dL (11.5-16.0); Mean Corpuscular HGB 21.4 pg (26.0-34.0); Mean Corpuscular HGB Conc 29.7 g/dL (31.5-36.5); Mean Corpuscular Volume 72 fL (80-100); Mean Platelet Volume 9.2 fL (9.1-12.4); Platelet Count 422 K/mm3 (150-400); RDW Coefficient Variation 21.2 % (11.7-14.2); RDW Standard Deviation 54.7 fL (35.1-46.3); Red Blood Cell Count 4.39 M/mm3 (3.80-5.20); White Blood Cell Count 17.21 K/mm3 (4.00-11.30)
[2018-02-06 05:28] LABS: Anion Gap 6 mmol/L (6-16); Blood Urea Nitrogen 38 mg/dL (8-24); Bun/Creatinine Ratio 55.8 (12.0-20.0); CO2, Blood 36 mmol/L (21-32); Calcium, Blood 7.8 mg/dL (8.5-10.1); Chloride, Blood 99 mmol/L (98-108); Creatinine, Blood 0.68 mg/dL (0.40-1.00); Glomerular Filtration Rate >60 (60-); Glucose, Blood 84 mg/dL (70-99); Potassium, Blood 4.1 mmol/L (3.5-5.5); Sodium, Blood 141 mmol/L (136-145)
[2018-02-06 05:30] LABS: BAND PERCENT MAN 1 % (0-8); BASOPHILS PERCENT MAN 0 % (0-2); EOSINOPHILS ABSOLUTE MAN 0.51 K/mm3 (0.00-0.68); EOSINOPHILS PERCENT MAN 3 % (0-6); LYMPHOCYTES ABSOLUTE MAN 1.54 K/mm3 (0.84-5.20); LYMPHOCYTES PERCENT MAN 9 % (21-46); METAMYELOCYTE ABSOLUTE MAN 0.17 K/mm3 (0.00-0.00); METAMYELOCYTE PERCENT MAN 1 % (0-0); MONOCYTES ABSOLUTE MAN 1.37 K/mm3 (0.16-1.47); MONOCYTES PERCENT MAN 8 % (4-13); MYELOCYTE ABSOLUTE MAN 0.34 K/mm3 (0.00-0.00); MYELOCYTE PERCENT MAN 2 % (0-0); NEUTROPHILS ABSOLUTE MAN 13.25 K/mm3 (1.96-9.15); SEG NEUTROPHILS PERCENT MAN 76 % (41-73); TOTAL CELLS COUNTED 100
[2018-02-07 05:21] LABS: Hematocrit 31.7 % (33.0-51.0); Mean Corpuscular HGB 20.6 pg (26.0-34.0); Mean Corpuscular HGB Conc 28.4 g/dL (31.5-36.5); Mean Corpuscular Volume 73 fL (80-100); Mean Platelet Volume 9.5 fL (9.1-12.4); Platelet Count 424 K/mm3 (150-400); RDW Coefficient Variation 21.7 % (11.7-14.2); RDW Standard Deviation 56.4 fL (35.1-46.3); Red Blood Cell Count 4.36 M/mm3 (3.80-5.20); White Blood Cell Count 16.97 K/mm3 (4.00-11.30)
[2018-02-07 05:48] LABS: BASOPHILS PERCENT MAN 0 % (0-2); EOSINOPHILS PERCENT MAN 0 % (0-6); LYMPHOCYTES ABSOLUTE MAN 2.54 K/mm3 (0.84-5.20); LYMPHOCYTES PERCENT MAN 15 % (21-46); MONOCYTES ABSOLUTE MAN 0.84 K/mm3 (0.16-1.47); MONOCYTES PERCENT MAN 5 % (4-13); MYELOCYTE ABSOLUTE MAN 0.67 K/mm3 (0.00-0.00); MYELOCYTE PERCENT MAN 4 % (0-0); NEUTROPHILS ABSOLUTE MAN 12.89 K/mm3 (1.96-9.15); SEG NEUTROPHILS PERCENT MAN 76 % (41-73); TOTAL CELLS COUNTED 100
[2018-02-07 05:50] LABS: Anion Gap 7 mmol/L (6-16); Blood Urea Nitrogen 35 mg/dL (8-24); Bun/Creatinine Ratio 62.3 (12.0-20.0); CO2, Blood 36 mmol/L (21-32); Calcium, Blood 7.7 mg/dL (8.5-10.1); Chloride, Blood 99 mmol/L (98-108); Creatinine, Blood 0.56 mg/dL (0.40-1.00); Glomerular Filtration Rate >60 (60-); Glucose, Blood 107 mg/dL (70-99); Potassium, Blood 3.7 mmol/L (3.5-5.5); Sodium, Blood 142 mmol/L (136-145)
[2018-02-08 04:57] LABS: Hematocrit 30.7 % (33.0-51.0); Hemoglobin 8.7 g/dL (11.5-16.0); Mean Corpuscular HGB 21.1 pg (26.0-34.0); Mean Corpuscular HGB Conc 28.3 g/dL (31.5-36.5); Mean Corpuscular Volume 75 fL (80-100); Mean Platelet Volume 9.8 fL (9.1-12.4); Platelet Count 404 K/mm3 (150-400); RDW Coefficient Variation 21.7 % (11.7-14.2); RDW Standard Deviation 57.6 fL (35.1-46.3); Red Blood Cell Count 4.12 M/mm3 (3.80-5.20); White Blood Cell Count 16.95 K/mm3 (4.00-11.30)
[2018-02-08 05:26] LABS: BAND PERCENT MAN 2 % (0-8); BASOPHILS PERCENT MAN 0 % (0-2); EOSINOPHILS PERCENT MAN 0 % (0-6); LYMPHOCYTES ABSOLUTE MAN 1.69 K/mm3 (0.84-5.20); LYMPHOCYTES PERCENT MAN 10 % (21-46); METAMYELOCYTE ABSOLUTE MAN 0.16 K/mm3 (0.00-0.00); METAMYELOCYTE PERCENT MAN 1 % (0-0); MONOCYTES ABSOLUTE MAN 1.35 K/mm3 (0.16-1.47); MONOCYTES PERCENT MAN 8 % (4-13); MYELOCYTE ABSOLUTE MAN 0.33 K/mm3 (0.00-0.00); MYELOCYTE PERCENT MAN 2 % (0-0); NEUTROPHILS ABSOLUTE MAN 13.39 K/mm3 (1.96-9.15); SEG NEUTROPHILS PERCENT MAN 77 % (41-73); TOTAL CELLS COUNTED 100
[2018-02-08] MEDS ORDERED: Culturelle1 CAP PO (11:52)
[2018-02-08] MEDS ORDERED: BUDE.25 NEB (11:53)
[2018-02-08] MEDS ORDERED: DELTASONE20 MG PO (11:55)
[2018-02-08] MEDS ORDERED: AMPI500 PO (11:57)
== END 2018-02-08 14:14 | disposition home or self-care (01) | DRG 177 ==
LOC: ER 12:37 → PCU 14:51 → MEDS 02-05 17:40 → ENPENDDIS 02-08 11:26 → MEDS 02-08 14:14
PROVIDERS: Emergency Medicine; Internal Medicine; Internal Medicine Critical Care Medicine; Pharmacist
DX: J15.5 Pneumonia due to Escherichia coli (principal); J96.21 Acute and chronic respiratory failure with hypoxia; R78.81 Bacteremia; R04.2 Hemoptysis; I50.22 Chronic systolic (congestive) heart failure; I47.1 Supraventricular tachycardia; J44.1 Chronic obstructive pulmonary disease with (acute) exacerbation; I11.0 Hypertensive heart disease with heart failure; I48.0 Paroxysmal atrial fibrillation; Z99.81 Dependence on supplemental oxygen; I25.10 Atherosclerotic heart disease of native coronary artery without angina pectoris; I25.5 Ischemic cardiomyopathy; Z66 Do not resuscitate; D50.9 Iron deficiency anemia, unspecified; M13.852 Other specified arthritis, left hip; M13.851 Other specified arthritis, right hip; E78.5 Hyperlipidemia, unspecified; F32.9 Major depressive disorder, single episode, unspecified; F43.10 Post-traumatic stress disorder, unspecified; Z79.82 Long term (current) use of aspirin; Z79.01 Long term (current) use of anticoagulants; Z95.0 Presence of cardiac pacemaker; Z90.49 Acquired absence of other specified parts of digestive tract; Z87.891 Personal history of nicotine dependence; Z79.899 Other long term (current) drug therapy; Z79.02 Long term (current) use of antithrombotics/antiplatelets; Z88.1 Allergy status to other antibiotic agents; Z88.8 Allergy status to other drugs, medicaments and biological substances
CPT/HCPCS: 36415; 36430; 36600; 71045; 71046; 71250; 80048; 80053; 80069; 80202; 82272; 82728; 82803; 83540; 83550; 83605; 83735; 83880; 84132; 84484; 85025; 85027; 86850; 86900; 86901; 86923; 87040; 87077; 87186; 87493; 93005; 93010; 94640; 94644; 94760; 94762; 97161; 97530; 99285; C1751; G8978; G8979; G8980; J0290; J1956; J2185; J2920; J2930; J3370; J7030; P9016

== ENCOUNTER → 2018-08-28 | Outpatient (CLI) | payer OTHER ==
[~2018-08-28] MED LIST changes: +AMPI500 PO; +BUDE.25 NEB; +Culturelle1 CAP PO; +DELTASONE20 MG PO; +DICL25ER PO; +Mirapex1 MG PO; +Voltaren100 GM TOP
[2018-08-28 14:51] LABS: BASOPHILS ABSOLUTE AUTO 0.05 K/mm3 (0.00-0.23); BASOPHILS PERCENT AUTO 0 % (0-2); EOSINOPHILS ABSOLUTE AUTO 0.23 K/mm3 (0.00-0.68); EOSINOPHILS PERCENT AUTO 2 % (0-6); Hemoglobin 7.1 g/dL (11.5-16.0); IMMATURE GRAN ABSOLUTE AUTO 0.07 K/mm3 (0.00-0.10); IMMATURE GRAN PERCENT AUTO 1 % (0-1); LYMPHOCYTES PERCENT AUTO 10 % (21-46); MONOCYTES ABSOLUTE AUTO 1.21 K/mm3 (0.16-1.47); MONOCYTES PERCENT AUTO 10 % (4-13); Mean Corpuscular HGB Conc 27.3 g/dL (31.5-36.5); Mean Corpuscular Volume 70 fL (80-100); Mean Platelet Volume 10.2 fL (9.1-12.4); NEUTROPHILS PERCENT AUTO 78 % (41-73); Platelet Count 326 K/mm3 (150-400); RDW Coefficient Variation 17.8 % (11.7-14.2); RDW Standard Deviation 44.3 fL (35.1-46.3); Red Blood Cell Count 3.73 M/mm3 (3.80-5.20); White Blood Cell Count 12.66 K/mm3 (4.00-11.30)
[2018-08-28 15:07] LABS: Albumin, Blood 2.7 g/dL (3.4-5.0); Albumin/Globulin Ratio 0.6 (0.8-1.8); Bilirubin, Total 0.5 mg/dL (0.1-1.0); Bun/Creatinine Ratio 19.1 (12.0-20.0); Calcium, Blood 8.7 mg/dL (8.5-10.1); Creatinine, Blood 0.94 mg/dL (0.40-1.00); Globulin, Blood 4.4 g/dL (2.2-4.0); Total Protein, Blood 7.1 g/dL (6.4-8.2)
[2018-08-28 19:51] LABS: Percent Saturation 3.6 % (15.0-50.0)
[2018-08-29 13:29] LABS: IMMATURE RETIC FRACTION 13.4 % (2.3-16.0); RETICULOCYTE COUNT PERCENT 1.72 % (0.50-2.50)
== END | disposition home or self-care (01) ==
LOC: LAB EV 14:46 → LAB SHORT 14:46
PROVIDERS: Physician Assistant
DX: D50.9 Iron deficiency anemia, unspecified (principal); R60.9 Edema, unspecified
CPT/HCPCS: 80053; 83010; 83540; 83550; 83880; 85025; 85045

== ENCOUNTER 2018-11-07 11:58 | Emergency (ER) | payer OTHER ==
[~2018-11-07] VITALS: Ht 165.1 cm; Wt 58.1 kg
[2018-11-07 14:26] LABS: BASOPHILS ABSOLUTE AUTO 0.04 K/mm3 (0.00-0.23); BASOPHILS PERCENT AUTO 1 % (0-2); EOSINOPHILS ABSOLUTE AUTO 0.16 K/mm3 (0.00-0.68); EOSINOPHILS PERCENT AUTO 3 % (0-6); Hematocrit 40.5 % (33.0-51.0); Hemoglobin 11.1 g/dL (11.5-16.0); IMMATURE GRAN ABSOLUTE AUTO 0.02 K/mm3 (0.00-0.10); IMMATURE GRAN PERCENT AUTO 0 % (0-1); LYMPHOCYTES ABSOLUTE AUTO 0.74 K/mm3 (0.84-5.20); LYMPHOCYTES PERCENT AUTO 15 % (21-46); MONOCYTES ABSOLUTE AUTO 0.85 K/mm3 (0.16-1.47); MONOCYTES PERCENT AUTO 17 % (4-13); Mean Corpuscular HGB 22.6 pg (26.0-34.0); Mean Corpuscular HGB Conc 27.4 g/dL (31.5-36.5); Mean Corpuscular Volume 82 fL (80-100); Mean Platelet Volume 10.8 fL (9.1-12.4); NEUTROPHILS ABSOLUTE AUTO 3.09 K/mm3 (1.96-9.15); NEUTROPHILS PERCENT AUTO 63 % (41-73); Platelet Count 205 K/mm3 (150-400); RDW Coefficient Variation 26.8 % (11.7-14.2); RDW Standard Deviation 76.8 fL (35.1-46.3); Red Blood Cell Count 4.92 M/mm3 (3.80-5.20)
[2018-11-07 14:45] LABS: Alanine Aminotransfer (ALT/SGP 20 U/L (12-78); Albumin, Blood 3.5 g/dL (3.4-5.0); Albumin/Globulin Ratio 0.9 (0.8-1.8); Alk Phos 193 U/L (50-136); Anion Gap 2 mmol/L (6-16); Aspartate Aminotrans (AST/SGOT 30 U/L (12-37); Bilirubin, Total 0.8 mg/dL (0.1-1.0); Blood Urea Nitrogen 29 mg/dL (8-24); Bun/Creatinine Ratio 33.3 (12.0-20.0); CO2, Blood 37 mmol/L (21-32); Calcium, Blood 8.8 mg/dL (8.5-10.1); Chloride, Blood 103 mmol/L (98-108); Creatinine, Blood 0.87 mg/dL (0.40-1.00); Globulin, Blood 3.9 g/dL (2.2-4.0); Glomerular Filtration Rate >60 (60-); Glucose, Blood 80 mg/dL (70-99); Sodium, Blood 142 mmol/L (136-145); Total Protein, Blood 7.4 g/dL (6.4-8.2)
[2018-11-07] MEDS ORDERED: Zithromax250 MG PO (18:38)
[2018-11-07] MEDS ORDERED: Prednisone50 MG PO (18:38)
== END 2018-11-07 19:18 | disposition home or self-care (01) ==
LOC: ER 11:58
PROVIDERS: Physician Assistant
DX: J44.1 Chronic obstructive pulmonary disease with (acute) exacerbation (principal); Z88.0 Allergy status to penicillin; Z88.8 Allergy status to other drugs, medicaments and biological substances; Z79.899 Other long term (current) drug therapy; Z79.82 Long term (current) use of aspirin; Z79.52 Long term (current) use of systemic steroids; F32.9 Major depressive disorder, single episode, unspecified; I50.9 Heart failure, unspecified; I25.2 Old myocardial infarction; Z87.891 Personal history of nicotine dependence
CPT/HCPCS: 71046; 80053; 83880; 85025; 93005; 93010; 94640; 96374; 99285-25; J1100

== ENCOUNTER 2018-12-04 10:03 | Day surgery (SDC) | payer OTHER ==
[~2018-12-04 10:03] MED LIST changes: +Prednisone50 MG PO
--- NOTE | 2018-12-04 11:20 | NUR ---
1045 PT TO SDS VIA WC, WEARING 02 PER NC AT 3 L/MIN, STOP AT BR, DYSPNEA WITH ACTIVITY, LUNGS CLEAR, DIM BASES BILAT. DENIES PAIN. CAOX4. VSS. FINGERS COLD WITH DELAYED CAP REFILL, PULSE OXIMETRY DIFF TO OBTAIN, 96% ON 3 L/MIN WITH EAR PROBE.
--- NOTE | 2018-12-04 11:42 | NUR ---
PATIENT REQUESTED BOTH IODINE AND LORAZEPAM BE REMOVED FROM HER ALLERGY LIST, SHE STATES SHE DOES NOT KNOW WHERE THAT CAME FROM AND WANTS IT REMOVED.
--- NOTE | 2018-12-04 11:43 | NUR ---
12/04/18 1143 Gurdeep England Bite Block Placed. 3-LEAD EKG REVIEWED WITH PHYSICIAN PRIOR TO START OF PROCEDURE.Patient to ENDO 1History, Chart, Medications and Allergies reviewed before start of procedure.MONITOR INTACT WITH CONTINUOUS PULSE OXIMETRY AND INTERMITTENT BP.O2 VIA N/C INTACT THROUGHOUT SEDATION/PROCEDURE.See Anesthesia record.
--- NOTE | 2018-12-04 12:44 | NUR ---
REPORT TO ADELAIDA FARLEY
--- NOTE | 2018-12-04 13:13 | NUR ---
"DAY SURGERY RN | DISCHARGE Report from Kary ROBERTSON. VSS. A/O. No issues. Discharge instructions given including when to restart blood thinners. Tolerating PO fluids. Taken in wheelchair to front entrance. Caregiver is ride home."
== END 2018-12-04 22:42 | disposition home or self-care (01) ==
LOC: ORSCMMR 10:03 → ORD 11:00 → ORSCMMR 11:00
PROVIDERS: Internal Medicine Gastroenterology
PROC: 0DB68ZX Excision of Stomach, Via Natural or Artificial Opening Endoscopic, Diagnostic (ICD-10-PCS; principal; 2018-12-04 11:00)
PROC: 0DBN8ZX Excision of Sigmoid Colon, Via Natural or Artificial Opening Endoscopic, Diagnostic (ICD-10-PCS; principal; 2018-12-04 11:00)
PROC: 0DB58ZX Excision of Esophagus, Via Natural or Artificial Opening Endoscopic, Diagnostic (ICD-10-PCS; principal; 2018-12-04 11:00)
PROC: 0DB98ZX Excision of Duodenum, Via Natural or Artificial Opening Endoscopic, Diagnostic (ICD-10-PCS; principal; 2018-12-04 11:00)
DX: R19.5 Other fecal abnormalities (principal); D50.0 Iron deficiency anemia secondary to blood loss (chronic); D12.5 Benign neoplasm of sigmoid colon; K21.9 Gastro-esophageal reflux disease without esophagitis; J44.9 Chronic obstructive pulmonary disease, unspecified; K44.9 Diaphragmatic hernia without obstruction or gangrene; Z99.81 Dependence on supplemental oxygen; I25.10 Atherosclerotic heart disease of native coronary artery without angina pectoris; I25.2 Old myocardial infarction; Z79.82 Long term (current) use of aspirin; Z79.01 Long term (current) use of anticoagulants; Z95.0 Presence of cardiac pacemaker; Z79.899 Other long term (current) drug therapy
CPT/HCPCS: 88305; 88342; J2405; J2704; J7120

== ENCOUNTER 2018-12-06 00:58 | Inpatient (IN) | payer OTHER ==
[~2018-12-06] VITALS: Ht 165.1 cm; Wt 62.1 kg
[2018-12-06 01:29] LABS: BASOPHILS ABSOLUTE AUTO 0.04 K/mm3 (0.00-0.23); BASOPHILS PERCENT AUTO 0 % (0-2); EOSINOPHILS ABSOLUTE AUTO 0.23 K/mm3 (0.00-0.68); EOSINOPHILS PERCENT AUTO 2 % (0-6); Hemoglobin 10.2 g/dL (11.5-16.0); IMMATURE GRAN ABSOLUTE AUTO 0.05 K/mm3 (0.00-0.10); IMMATURE GRAN PERCENT AUTO 1 % (0-1); LYMPHOCYTES ABSOLUTE AUTO 1.17 K/mm3 (0.84-5.20); LYMPHOCYTES PERCENT AUTO 12 % (21-46); MONOCYTES PERCENT AUTO 9 % (4-13); Mean Corpuscular HGB 24.1 pg (26.0-34.0); Mean Corpuscular HGB Conc 27.6 g/dL (31.5-36.5); Mean Corpuscular Volume 87 fL (80-100); Mean Platelet Volume 10.1 fL (9.1-12.4); NEUTROPHILS ABSOLUTE AUTO 7.33 K/mm3 (1.96-9.15); NEUTROPHILS PERCENT AUTO 75 % (41-73); Platelet Count 210 K/mm3 (150-400); RDW Coefficient Variation 24.2 % (11.7-14.2); Red Blood Cell Count 4.24 M/mm3 (3.80-5.20); White Blood Cell Count 9.72 K/mm3 (4.00-11.30)
[2018-12-06 01:48] LABS: Alanine Aminotransfer (ALT/SGP 34 U/L (12-78); Albumin/Globulin Ratio 0.9 (0.8-1.8); Alk Phos 196 U/L (50-136); Anion Gap 2 mmol/L (6-16); Aspartate Aminotrans (AST/SGOT 28 U/L (12-37); Bilirubin, Total 0.4 mg/dL (0.1-1.0); Blood Urea Nitrogen 16 mg/dL (8-24); Bun/Creatinine Ratio 21.9 (12.0-20.0); CO2, Blood 32 mmol/L (21-32); Calcium, Blood 8.4 mg/dL (8.5-10.1); Chloride, Blood 110 mmol/L (98-108); Creatinine, Blood 0.73 mg/dL (0.40-1.00); Globulin, Blood 3.3 g/dL (2.2-4.0); Glomerular Filtration Rate >60 (60-); Glucose, Blood 136 mg/dL (70-99); Potassium, Blood 4.7 mmol/L (3.5-5.5); Sodium, Blood 144 mmol/L (136-145); Total Protein, Blood 6.3 g/dL (6.4-8.2); Troponin I 0.031 ng/mL (0.000-0.040)
[2018-12-06] MEDS ORDERED: IBUP600 PO (03:21)
[2018-12-06] MEDS ORDERED: METO25ER PO (03:23)
[2018-12-06] MEDS ORDERED: VOLTAREN100 GM TOP (03:24)
[2018-12-06] MEDS ORDERED: ALBU3IS INH (03:25)
--- NOTE | 2018-12-06 03:55 | NUR ---
PT ADMITTED TO FLOOR FROM ED. BIPAP SET UP BY RT, TELE PLACED, PACED IN THE 80S. PT ASSISTED TO USE THE BEDPAN. O2 ORIGINALLY PLACED WAS 5L VIA BIPAP, REQUIRED INCREASE TO 8L/MIN VIA BIPAP AFTER THE EXERTION OF USING THE BEDPAN. PT WEANED TO 7L, ABLE TO MAINTAIN ON 7L AT THIS TIME. WILL WEAN BACK DOWN TO 5L/MIN VIA BIPAP WHEN ABLE TO MAINTAN FOR A LENGTH OF TIME. PT'S HOME O2 DOSE IS 2L VIA NC.
--- NOTE | 2018-12-06 06:48 | NUR ---
SHIFT SUMMARY PT ADMITTED FROM ED FOR ACUTE RESP FAILURE/COPD EXACERBATION. SHE CAME UP TO THE FLOOR ON 5L VIA BIPAP BUT REQUIRED MORE OXYGEN AFTER USING THE BEDPAN AND HAD TO BE BUMPED UP TO 8L VIA BIPAP TO MAINTAIN. SHE WAS THEN TITRATED BACK DOWN, BUT ANY EXERTION REQUIRES A RECOVERY PERIOD AND THE NEXT TIME SHE HAD TO BE INCREASED SHE NEEDED 7L VIA BIPAP TO MAINTAIN. SHE IS CURRENTLY LOW 90S ON 6L WHILE AWAKE, BUT COULD NOT MAINTAIN ON 5-6L WHILE SLEEPING EARLIER TONIGHT. PT IS A&O, ABLE TO MAKE NEEDS KNOWN. SHE HAS AN EXTENSIVE CARDIAC HISTORY AND TELE HAS BEEN 100% PACED IN THE 80S SINCE ARRIVAL TO THE UNIT. AICD IN PLACE TO LEFT CHEST. PT IS PRODUCING SOME SPUTUM, LUNGS ARE WHEEZY T/O WITH COARSE CRACKLES IN THE RIGHT UPPER LOBE. WILL CTM UNTIL PASS TO NEXT SHIFT.
--- NOTE | 2018-12-06 10:51 | NUR ---
CALLED DR. NUNN REGAUREMINGTONING HOME MEDICATIONS AND BLOOD PRESSURE. WILL AWAIT NEW ORDERS.
--- NOTE | 2018-12-06 16:13 | NUR ---
CALLED DR. UNNN ABOUT ELVATED BLOOD PRESSURE. NEW ORDERS FOR PO METOPROLOL. MEDICATION ADMINISTERED. WILL RECHECK BP.
--- NOTE | 2018-12-06 17:46 | NUR ---
SHIFT SUMMARY PT ALERT AND ORIENTED. O2 SATS HAVE REMAINED ABOVE 90% ON BIPAP WITH FIO2 OF 35%. PT TAKEN OFF BIPAP AND PUT ON NC AT 4L FOR MEALS. RESPIRATIONS HAVE BEEN BETWEEN 20-40. BP HAS BEEN ELEVATED AND DR. NUNN IS AWARE. BP STILL ELEVATED AFTER METOPROLOL WAS GIVEN. PT COMPLAINED OF LEFT HIP PAIN THAT WAS RELIEVED WITH TYLENOL. NO OTHER CHANGES AT THIS TIME. WILL CONTINUE TO MONITOR AND REPORT TO ONCOMING RN.
--- NOTE | 2018-12-07 06:13 | NUR ---
SHIFT SUMMARY PATIENT ALERT, ORIENTED, AND PELASENT THROUGHOUT THE SHIFT. PATIENT USED THE BIPAP FOR MOST OF THE NIGHT WITH SEVERAL SHORT 5 MINUTE OR LESS BREAKS. HOWEVER, THIS AM PATIENT ASKED FOR A BREAK FROM THE BIPAP AND HAS BEEN OFF THE BIPAP FOR APPROX ONE HOUR. PATIENT STATES SHE IS FEELING FINE AT THIS TIME AND WOULD LIKE TO CONTINUE TO REMAIN OFF THE BIPAP. PATIENT ON 4L O2 VIA N/C WHEN OFF BIPAP. CONTINUOUS BIOX IN PLACE. PATIENT MEDICATED FOR L HIP PAIN PER EMAR. PATIENT HAS BEEN BEDREST DUE TO SOB AND O2 STATS DROPPING UPON EXERTION. PATIENT MEDICATED FOR HIGH BLOOD PRESSURE THROUGHOUT THE NIGHT PER EMAR. WILL CONTINUE TO MONITOR PATIENT AND REPORT TO ONCOMING RN.
--- NOTE | 2018-12-07 07:40 | NUR ---
ASSUMED CARE OF PT AT 0700. PT LYING IN BED AWAKE WATCHING TV. PT ON NASAL CANNULA AND SWITCHED TO BIPAP MACHINE ( 05/23 FIO2 35% BACKUP RATE 14). HEART SOUNDS IRREGULAR. ON TELE WITH THE RHYTHMN PACED AT 89 PER BEAM BUILDER HELPER. PT STATES "I FEEL BETTER THAN YESTERDAY". USED THE BEDPAN. IV IN L ARM WNL. CALL LIGHT IN REACH. BED IN LOWEST POSITION. WILL CONTINUE TO MONITOR.
--- NOTE | 2018-12-07 14:27 | NUR ---
Echocardiogram performed.
--- NOTE | 2018-12-07 16:47 | NUR ---
15 BEAT RUN OF VTACH FOLLOWED BY NOTED ECTOPY. PMD NOTIFIED, NEW DOCTORS ORDERS RECEIVED, MAG RIDER ADMINISTERED, LASIX GIVEN. HYPERTENSIVE THIS AFTERNOON, PRN LABETOLOL GIVEN. SLIGHT IMPROVEMENT. NO NOTED CHANGES IN RESPIRATORY STATUS. PT SWITHCHED BETWEEN THE BIPAP AND NASAL CANNUA DURING THE SHIFT. PT ALERT AND ORIENTED. C/O HIP PAIN, RECEIVED ORN ASHISH. PT IS SITTING IN BED WATCHING TV. CALL LIGHT WITHIN REACH. BED IN LOWEST SETTING. WILL CONTINUE TO MONITOR UNTIL NEXT SHIFT ARRIVES.
--- NOTE | 2018-12-08 00:16 | NUR ---
UPDATE PATIENT'S HEART RATE STARTED TRENDING IN THE 110'S PER EXPERIMENTAL PREFLIGHT MECHANIC. THEN PATIENT STARTED JUMPING UP TO THE 130'S-140'S WITH FUSION BEATS AND ECTOPY BEATS. PATIENT ASYMPOMATIC AT THIS TIME, SHE STATES SHE FEELS, "FINE." CHARGE NURSE AWARE AND INTO ASSESS PATIENT WELL. AN EKG WAS OBTAINED. VITAL SIGNS CHARTED. DR STANLEY NOTIFIED, ORDERS RECEIVED.
[2018-12-08 03:35] LABS: PCO2 Venous 57.6 mmHg (38-42); pH Blood Venous 7.45 (7.34-7.37)
[2018-12-08 03:36] LABS: Base Excess Venous 15.8 mmol/L; Bicarbonate Venous 37.5 mmol/L (24.0-30.0); PO2 Venous 74.6 mmHg (38-42)
[2018-12-08 04:15] LABS: BASOPHILS ABSOLUTE AUTO 0.03 K/mm3 (0.00-0.23); BASOPHILS PERCENT AUTO 0 % (0-2); EOSINOPHILS ABSOLUTE AUTO 0.01 K/mm3 (0.00-0.68); EOSINOPHILS PERCENT AUTO 0 % (0-6); Hematocrit 37.5 % (33.0-51.0); Hemoglobin 10.7 g/dL (11.5-16.0); IMMATURE GRAN ABSOLUTE AUTO 0.07 K/mm3 (0.00-0.10); IMMATURE GRAN PERCENT AUTO 0 % (0-1); LYMPHOCYTES ABSOLUTE AUTO 1.13 K/mm3 (0.84-5.20); LYMPHOCYTES PERCENT AUTO 7 % (21-46); MONOCYTES ABSOLUTE AUTO 1.24 K/mm3 (0.16-1.47); MONOCYTES PERCENT AUTO 8 % (4-13); Mean Corpuscular HGB 23.4 pg (26.0-34.0); Mean Corpuscular HGB Conc 28.5 g/dL (31.5-36.5); Mean Platelet Volume 10.7 fL (9.1-12.4); NEUTROPHILS ABSOLUTE AUTO 13.59 K/mm3 (1.96-9.15); NEUTROPHILS PERCENT AUTO 85 % (41-73); Platelet Count 277 K/mm3 (150-400); RDW Coefficient Variation 24.7 % (11.7-14.2); RDW Standard Deviation 71.2 fL (35.1-46.3); Red Blood Cell Count 4.57 M/mm3 (3.80-5.20); White Blood Cell Count 16.07 K/mm3 (4.00-11.30)
[2018-12-08 04:16] LABS: Mean Corpuscular Volume 82 fL (80-100)
[2018-12-08 04:36] LABS: Anion Gap 4 mmol/L (6-16); Blood Urea Nitrogen 38 mg/dL (8-24); Bun/Creatinine Ratio 46.1 (12.0-20.0); CO2, Blood 37 mmol/L (21-32); Calcium, Blood 8.8 mg/dL (8.5-10.1); Chloride, Blood 99 mmol/L (98-108); Creatinine, Blood 0.83 mg/dL (0.40-1.00); Glomerular Filtration Rate >60 (60-); Glucose, Blood 96 mg/dL (70-99); Magnesium, Blood 3.3 mg/dL (1.6-2.4); Sodium, Blood 140 mmol/L (136-145)
--- NOTE | 2018-12-08 05:04 | NUR ---
UPDATE DR STANLEY CALLED AND NOTIFIED THAT PATIENT CONTINUES TO RUN IN THE 110'S AND TOUCHES UP TO THE 130'S-140'S FOR BREIF PERIODS OF TIMES. DR STANLEY ALSO UPDATED THAT PATIENT'S BNP WAS 1758 AND THAT HER MAG WAS 3.3 THIS AM. PATIENT REMAINS ASYMPTOMATIC AT THIS TIME. NO NEW ORDERS GIVEN. WILL CONTINUE TO MONITOR.
[2018-12-08] MEDS ORDERED: PRAM.5 PO (06:21)
[2018-12-08] MEDS ORDERED: PRED20 PO (06:24)
[2018-12-08] MEDS ORDERED: ATOR20 PO (06:25)
[2018-12-08] MEDS ORDERED: SINEMET 25-1001 EACH PO (06:45)
[2018-12-08] MEDS ORDERED: Toviaz8 MG PO (06:48)
[2018-12-08] MEDS ORDERED: BUDESONIDE (06:50)
--- NOTE | 2018-12-08 07:55 | NUR ---
SHIFT SUMMARY PATIENT'S HEART RATE CONTINUES TO RUN IN THE 110'S AND TOUCHES UP TO THE 130'S-140'S PERIODICALLY. PATIENT CONTINUES TO BE ASYMPTOMATIC. PATIENT APPEARED TO SLEEP WELL ON AND OFF THROUGHOUT THE NIGHT. PATIENT ON 2L VIA N/C FOR MOST OF THE NIGHT. PATIENT DID USE THE BIPAP FOR APPROX 1 HOUR LAST NIGHT. PATIENT STATES HER BREATHING IS FEELING BETTER. PATIENT MEDICATED FOR PAIN PER EMAR. VITAL SIGNS CHARTED. PATIENT ABLE TO MOVE HERSELF ABOUT WELL IN BED. REPORT GIVEN TO ONCOMING RN.
--- NOTE | 2018-12-08 09:59 | NUR ---
SHIFT NOTE PT VSS AND IN NO APPARENT SIGN OF DISTRESS. PT BREATHING E/U ON NC. PT C/O CHRONIC PAIN TO L HIP. PER PHYSICAL THERAPY AIDES TEACHER, PT TACHYCARDIC THIS MORNING WITH HR IN 130'S AND FEW SECOND SPIKES UP TO 170. PT ASYMPTOMATIC WITH NO C/O CHEST PAIN OR PRESSURE. NO INCREASING RESPIRATORY DEMAND NOTED. PT CALM AND COOPERATIVE. PT CALL APPROPRIATELY.
--- NOTE | 2018-12-08 18:52 | NUR ---
SHIFT SUMMARY with the exception of tachycardia this shift, pt has not had any further acute changes or events. vss but tachycardic. in no apparent sign of distress. pt has been medicated for pain per orders, repositions self, calls appropriately, uses bedpan, tele sinus tach 130's on average. call hospitalist with marked tachycardia sustaining greater than [address] segovia. pt reported chest pressure this afternoon. an ekg obtained immediatly. called results and update to dr segovia at that time. dr segovia ordered cardizem to be given and was effective to decrease hr and helped to subsite the pressure pt experienced. pt stated: "i think the pressure is my anxiety" pt given anxiety medications with reported relief of chest pressure. troponins were wnl.
--- NOTE | 2018-12-09 06:27 | NUR ---
SHIFT SUMMARY PT A&O X4. VSS. HR TOUCH UP TO 140'S W/OUT SUSTAINING, DECREASING SUCCESSFULLY W/OUT MEDICATION. HR AVERAGING 70-100. LUNG SOUNDS CLEAR. SPO2 > 92% ON 2L NC. PT 1 PERSON ASSIST OOB TO BSC. EPISODES OF INCONTINENCE D/T URINARY URGERNCY. PT WEARING ATTENDS. PRN DAIN CARE/ATTENDS CHANGES PROVIDED. PT IN BED W/ CALL LIGHT IN REACH. WILL CONTINUE TO MONITOR AND PROVIDE CARE UNTIL REPORT OFF TO DAY SHIFT RN.
--- NOTE | 2018-12-09 14:32 | NUR ---
HALF OF MIRAPEX DOSE ACCIDENTALLY DROPPED ON THE FLOOR AND WASTED; WILL NEED TO REQUEST REPLACEMENT FROM PHARMACY.
--- NOTE | 2018-12-09 14:56 | NUR ---
Device intertrogation done per order. Pt having VT episodes per RN and device not functioning. Normal functioning dual chamber ICD. Lower rate 50 BPM. EGM shows sinus with frequent PAC's. Monitored VT episodes: 8. Monitorefd AT/AF episodes: 41. Last episode 12/07/18 AF with RVR duration 30:23:40. Max ventricular rate 207 bpm. VF detect zone is 200 bpm. VT and AF are monitor only. Sensing and capture thresholds stable. AT/AF >6 hours for 7 days. AT/AF 1.7%. Adequate battery status. Ap 0.1% CT SCAN TECHNICIAN 97%. Paced AV 120 ms. Sensed AV 90 ms[address] Information given to Dr. Neves.
--- NOTE | 2018-12-09 15:32 | NUR ---
Pt is wearing 3 l/min O2 delivery at this time; states her baseline is 2 l/min at home, and that she doesn't normally use a bipap or cpap either. STates her normal level of mobility is using a cane/walker within the home, and a motorized scooter when she is out. States that she is feeling fine this afternoon, but is tired from interrupted sleep while here at the hospital.
--- NOTE | 2018-12-09 19:29 | NUR ---
summary The pt has been up frequently to the BSC to void and have small bowel movements, but declined OOB to the chair for meals. Appetite good. Dyspnea and tachypnea with activity, but SpO2 this evening has been 88-90 % during activity of using the BSC and returning to bed, while wearing oxygen at 2 l/min n.c. delivery.
[2018-12-10 04:23] LABS: Hematocrit 39.2 % (33.0-51.0); Hemoglobin 11.6 g/dL (11.5-16.0); Mean Corpuscular HGB 24.1 pg (26.0-34.0); Mean Corpuscular HGB Conc 29.6 g/dL (31.5-36.5); Mean Corpuscular Volume 82 fL (80-100); Mean Platelet Volume 10.8 fL (9.1-12.4); Platelet Count 296 K/mm3 (150-400); RDW Coefficient Variation 23.7 % (11.7-14.2); RDW Standard Deviation 68.2 fL (35.1-46.3); Red Blood Cell Count 4.81 M/mm3 (3.80-5.20); White Blood Cell Count 9.53 K/mm3 (4.00-11.30)
[2018-12-10 04:41] LABS: Anion Gap 5 mmol/L (6-16); Blood Urea Nitrogen 46 mg/dL (8-24); CO2, Blood 37 mmol/L (21-32); Calcium, Blood 8.3 mg/dL (8.5-10.1); Chloride, Blood 96 mmol/L (98-108); Creatinine, Blood 0.85 mg/dL (0.40-1.00); Glomerular Filtration Rate >60 (60-); Glucose, Blood 169 mg/dL (70-99); Potassium, Blood 4.1 mmol/L (3.5-5.5); Sodium, Blood 138 mmol/L (136-145)
--- NOTE | 2018-12-10 06:12 | NUR ---
ASSUMED CARE AT 1900 FROM MARCELO GRIFFITHS; PT ON 1.5 LPM NC INCREASING TO 2 L WITH AMBULATION; ONE PERSON ASSIST TO BSC; REPOSITIONS SELF IN BED; HR 80'S-90'S PACED W/ PVC PER MUSEUM SERVICE SCHEDULER. PT STATES CHRONIC PAIN OF HIP BASELINE, MEDICATION PER EMAR; VS STABLE; PT SLEPT WELL BETWEEN INTERUPTIONS, DID NOT USE BIPAP; CALL LIGHT WITHIN REACH; BED IN LOWEST POSITION; SCD'S IN PLACE; PT CALLS APPROPRIATELY; WILL CONTINUE TO ASSESS AND MONITOR UNTIL REPORT TO ONCOMING RN.
--- NOTE | 2018-12-10 15:48 | NUR ---
The patient has been stongly encouraged to get OOB for all of her meals, which today she has been doing for the first time. She states that she feels better, and is hoping still to be discharged tomorrow. No longer using Bipap. STates she only uses oxygen at home, not cpap or bipap. She is on her home baseline delivery rate of 2 l/min at this time, sp02 96% while at rest, sitting in bed, watching TV. No c/o pain at this time. She was given a Coyote earlier for left hip pain.
--- NOTE | 2018-12-10 16:57 | NUR ---
Report was given to medical floor RN in anticipation of pt moving to room 328.
--- NOTE | 2018-12-10 18:33 | NUR ---
SHIFT SUMMARY- PT PCU TRANSFER THIS PM. PT DENIES PAIN. DENIES SOB. RESP E/U ON 2L O2 NC. DENIES N/V. BED IN LOWEST POSITION. BED ALARM ON. CALL LIGHT IN REACH. NO OTHER SIGNIFICANT CHANGES THIS SHIFT.
--- NOTE | 2018-12-11 05:26 | NUR ---
VSS, AFEBRILE, A/O, SLEPT WELL OVERNOC, NO COMPLAINTS, NO SIGNIFICANT CHANGES NOTED, PT MAY D/C TO HOME TODAY. WILL REPORT TO ON-COMING SHIFT.
[2018-12-11 05:36] LABS: Anion Gap 4 mmol/L (6-16); Blood Urea Nitrogen 46 mg/dL (8-24); Bun/Creatinine Ratio 52.9 (12.0-20.0); CO2, Blood 38 mmol/L (21-32); Calcium, Blood 8.6 mg/dL (8.5-10.1); Chloride, Blood 97 mmol/L (98-108); Creatinine, Blood 0.87 mg/dL (0.40-1.00); Glomerular Filtration Rate >60 (60-); Glucose, Blood 88 mg/dL (70-99); Potassium, Blood 4.6 mmol/L (3.5-5.5); Sodium, Blood 139 mmol/L (136-145)
[2018-12-11] MEDS ORDERED: SPIR50 PO (11:25)
--- NOTE | 2018-12-11 13:29 | NUR ---
D/C INSTRUCTIONS PROVIDED AND EXPLAINED TO PT. IV REMOVED. PT D/C VIA WHEELCHAIR WITH PROFILE SAW OPERATOR AND FRIEND AT 1320.
== END 2018-12-11 13:23 | disposition home health service (06) | DRG 291 ==
LOC: ER 00:58 → PCU 02:49 → MEDS 12-10 17:50 → ENPENDDIS 12-11 10:35 → MEDS 12-11 13:23
PROVIDERS: Emergency Medicine; Internal Medicine; ADMIT Hospitalist
PROC: 5A09457 Assistance with Respiratory Ventilation, 24-96 Consecutive Hours, Continuous Positive Airway Pressure (ICD-10-PCS; principal; 2018-12-06)
DX: I11.0 Hypertensive heart disease with heart failure (principal); J96.21 Acute and chronic respiratory failure with hypoxia; J96.22 Acute and chronic respiratory failure with hypercapnia; J44.1 Chronic obstructive pulmonary disease with (acute) exacerbation; I50.43 Acute on chronic combined systolic (congestive) and diastolic (congestive) heart failure; D64.9 Anemia, unspecified; I25.10 Atherosclerotic heart disease of native coronary artery without angina pectoris; F32.9 Major depressive disorder, single episode, unspecified; Z66 Do not resuscitate; E78.5 Hyperlipidemia, unspecified; Z87.891 Personal history of nicotine dependence; F41.9 Anxiety disorder, unspecified; I27.20 Pulmonary hypertension, unspecified; I34.0 Nonrheumatic mitral (valve) insufficiency; I48.0 Paroxysmal atrial fibrillation; Z95.0 Presence of cardiac pacemaker; Z99.81 Dependence on supplemental oxygen; I36.1 Nonrheumatic tricuspid (valve) insufficiency; I25.5 Ischemic cardiomyopathy; Z79.01 Long term (current) use of anticoagulants; E87.6 Hypokalemia
CPT/HCPCS: 36415; 71045; 71046; 80048; 80053; 82803; 83735; 83880; 84484; 85025; 85027; 93005; 93010; 93283; 93306; 94640; 94644; 94660; 94760; 94762; 96365; 96375; 97110; 97116; 97162; 97530; 99285-25; A9270-GY; J1100; J1940; J1956; J2930; J3475; J7512

== ENCOUNTER 2019-07-09 14:33 | Inpatient (IN) | payer OTHER ==
[~2019-07-09] VITALS: Ht 165.1 cm; Wt 58.2 kg
[~2019-07-09 14:33] MED LIST changes: -ASPI81CH PO; +Aspirin EC81 MG PO; +BUDESONIDE; +METO25ER PO; +SINEMET 25-1001 EACH PO; +SPIR50 PO; +Toviaz8 MG PO; +VOLTAREN100 GM TOP
[2019-07-09 15:07] LABS: BASOPHILS ABSOLUTE AUTO 0.06 K/mm3 (0.00-0.23); BASOPHILS PERCENT AUTO 0 % (0-2); EOSINOPHILS ABSOLUTE AUTO 0.01 K/mm3 (0.00-0.68); EOSINOPHILS PERCENT AUTO 0 % (0-6); Hematocrit 38.6 % (33.0-51.0); Hemoglobin 11.7 g/dL (11.5-16.0); IMMATURE GRAN PERCENT AUTO 2 % (0-1); LYMPHOCYTES ABSOLUTE AUTO 0.35 K/mm3 (0.84-5.20); LYMPHOCYTES PERCENT AUTO 1 % (21-46); MONOCYTES ABSOLUTE AUTO 1.71 K/mm3 (0.16-1.47); MONOCYTES PERCENT AUTO 6 % (4-13); Mean Corpuscular HGB 27.9 pg (26.0-34.0); Mean Corpuscular HGB Conc 30.3 g/dL (31.5-36.5); Mean Platelet Volume 11.1 fL (9.1-12.4); NEUTROPHILS ABSOLUTE AUTO 24.12 K/mm3 (1.96-9.15); NEUTROPHILS PERCENT AUTO 90 % (41-73); Platelet Count 247 K/mm3 (150-400); RDW Coefficient Variation 15.4 % (11.7-14.2); RDW Standard Deviation 52.1 fL (35.1-46.3); Red Blood Cell Count 4.19 M/mm3 (3.80-5.20); White Blood Cell Count 26.75 K/mm3 (4.00-11.30)
[2019-07-09 15:09] LABS: Mean Corpuscular Volume 92 fL (80-100)
[2019-07-09 15:25] LABS: Alanine Aminotransfer (ALT/SGP 23 U/L (12-78); Albumin, Blood 3.6 g/dL (3.4-5.0); Albumin/Globulin Ratio 0.9 (0.8-1.8); Alk Phos 205 U/L (50-136); Anion Gap 5 mmol/L (6-16); Aspartate Aminotrans (AST/SGOT 13 U/L (12-37); Bilirubin, Total 0.7 mg/dL (0.1-1.0); Blood Urea Nitrogen 47 mg/dL (8-24); CO2, Blood 32 mmol/L (21-32); Calcium, Blood 9.4 mg/dL (8.5-10.1); Chloride, Blood 107 mmol/L (98-108); Creatinine, Blood 1.12 mg/dL (0.40-1.00); Glomerular Filtration Rate 52 (60-); Glucose, Blood 102 mg/dL (70-99); Magnesium, Blood 2.4 mg/dL (1.6-2.4); Potassium, Blood 4.8 mmol/L (3.5-5.5); Sodium, Blood 144 mmol/L (136-145); Total Protein, Blood 7.6 g/dL (6.4-8.2); Troponin I <0.015 ng/mL (0.000-0.040)
[2019-07-09] MEDS ORDERED: Zantac150 MG PO (16:21)
[2019-07-09] MEDS ORDERED: Toviaz8 MG PO (16:23)
[2019-07-09] MEDS ORDERED: SPIRIVA RESPIMAT4 GM INH (16:25)
[2019-07-09] MEDS ORDERED: ATORVASTATIN CA20 MG PO (16:25)
[2019-07-09] MEDS ORDERED: FUROSEMIDE40 MG PO (16:26)
[2019-07-09] MEDS ORDERED: POTASSIUM CHLO20 ME1 PO (16:26)
[2019-07-09] MEDS ORDERED: NITR.4SL SL (16:31)
--- NOTE | 2019-07-09 17:37 | NUR ---
RECEIEVED REPORT FROM KAREN LUIS RN, AT [id number]. PATIENT WILL BE TRANSFERING TO ROOM 339.
[2019-07-09 18:16] LABS: Source, Urine Clean Catch
[2019-07-09 18:34] LABS: Bilirubin, Urine Neg (Neg); Blood, Urine Neg (Neg); Glucose Qualitative, Urine Neg (Neg); Ketones, Urine Neg (Neg); Leukocyte Esterase, Urine 1+ (Neg); Nitrite, Urine Neg (Neg); Protein, Urine Neg (Neg); Urobilinogen, Urine NORM (Normal)
--- NOTE | 2019-07-09 18:35 | NUR ---
PATIENT ARRIVED TO ROOM 339 AT 1752 VIA STRETCHER. 3 PERSON ASSIST TO TRANSFER PATIENT TO HOSPITAL BED. ADMISSION ASSESSMENT COMPLETED. MEDICATION LIST REQUEST SENT TO [facility] TO COMPLETE MED REC. 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 PER PROTOCOL SENT UA, RECTAL SWAB AND SPUTUM SPECIMEN TO LAB FOR R/O.
[2019-07-09 18:43] LABS: Appearance, Urine Clear (Clear); Color, Urine Yellow (P-Yellow)
[2019-07-09 18:50] LABS: Bacteria Mod /hpf; Red Blood Cells, Urine Not Seen /hpf (0-2); Squamous Epithelial Cells Many /hpf (Few)
[2019-07-09] MEDS ORDERED: Prednisone10 MG PO (20:10)
[2019-07-09] MEDS ORDERED: Econazole Nitra15 GM TOP (20:13)
--- NOTE | 2019-07-10 01:41 | NUR ---
AT APPROXIMATELY 0110 THIS RN ASKED TO ASSESS PT BY PRODUCTION RECOVERY OPERATOR. PT REPORTING INCREASED SOB. PT ON 2L O2 VIA NC AT THAT TIME WHICH IS BASELINE RATE. INSTRUCTED PT TO TAKE DEEP BREATHES THROUGH NOSE, HOWEVER PT A BIT ANXIOUS AT THIS POINT. O2 SAT AT 70% ON 2L. INCREASED O2 FROM 2 TO 6 LITERS VIA NC. O2 SATS AT 6L WERE BETWEEN 75-79%. NOTIFIED RT WHO PLACED PT ON OXYMIZER AT 9L AND GAVE BREATHING TREATMENT. ABLE TO TITRATE O2 DOWN TO 6L VIA OXYMIZER. PT SATTING BETWEEN 90-94% AT THIS TIME. THIS RN COVERING PRIMARY RN SHRADDHA FOR LUNCH BREAK DURING THIS TIME. REPORT GIVEN TO SHRADDHA WHEN HE RETURNED.
--- NOTE | 2019-07-10 02:47 | NUR ---
PATIENT CONTINUES TO STAT 90-96% ON 6L VIA OXIMIZER. RESTING IN BED. CALL LIGHT IN REACH.
--- NOTE | 2019-07-10 04:54 | NUR ---
TELEMETRY EVENT. TECH REPORTS ELEVEN BEAT V-TACH RUN AND BACK TO SR W/BBB. CHARGE NURSE NOTIFIED AND REPORTS CONTINUE TO MONITOR. PATIENT ASYMPTOMATIC RESTING IN BED.
--- NOTE | 2019-07-10 04:56 | NUR ---
SHIFT SUMMARY PATIENT HAD ACUTE CHANGE (SEE NOTE). WAS ON 3L O2 NC TO 6 L O2 OXIMIZER. CEMENT SIDE LASTER NOW REPORTED ELEVEN BEAT RUN OF V-TACH AND BACK TO NSR W/BBB. PATIENT RESTING IN BED. AXOX 3 AND ONE ASSIST TO BSC. VSS/AFEBRILE. DENIES PAIN AND N/V. NS INFUSING AT 50 mL/HR ONE OF TWO BAGS. DROPLET PRECAUTIONS. RT IN FOR BREATHING TX. CALL LIGHT IN REACH. BED IN LOWEST POSITION. WILL CONTINUE TO MONITOR UNTIL DAY SHIFT NURSE ASSUMES CARE.
[2019-07-10 05:19] LABS: BASOPHILS ABSOLUTE AUTO 0.05 K/mm3 (0.00-0.23); BASOPHILS PERCENT AUTO 0 % (0-2); EOSINOPHILS ABSOLUTE AUTO 0.07 K/mm3 (0.00-0.68); EOSINOPHILS PERCENT AUTO 0 % (0-6); Hematocrit 34.8 % (33.0-51.0); Hemoglobin 10.5 g/dL (11.5-16.0); IMMATURE GRAN ABSOLUTE AUTO 0.15 K/mm3 (0.00-0.10); IMMATURE GRAN PERCENT AUTO 1 % (0-1); LYMPHOCYTES ABSOLUTE AUTO 1.02 K/mm3 (0.84-5.20); LYMPHOCYTES PERCENT AUTO 6 % (21-46); MONOCYTES ABSOLUTE AUTO 1.64 K/mm3 (0.16-1.47); MONOCYTES PERCENT AUTO 9 % (4-13); Mean Corpuscular HGB 27.7 pg (26.0-34.0); Mean Corpuscular HGB Conc 30.2 g/dL (31.5-36.5); Mean Corpuscular Volume 92 fL (80-100); Mean Platelet Volume 10.9 fL (9.1-12.4); NEUTROPHILS ABSOLUTE AUTO 15.55 K/mm3 (1.96-9.15); NEUTROPHILS PERCENT AUTO 84 % (41-73); Platelet Count 221 K/mm3 (150-400); RDW Coefficient Variation 15.6 % (11.7-14.2); RDW Standard Deviation 52.1 fL (35.1-46.3); Red Blood Cell Count 3.79 M/mm3 (3.80-5.20); White Blood Cell Count 18.48 K/mm3 (4.00-11.30)
[2019-07-10 05:36] LABS: Anion Gap 4 mmol/L (6-16); Blood Urea Nitrogen 37 mg/dL (8-24); Bun/Creatinine Ratio 41.4 (12.0-20.0); CO2, Blood 30 mmol/L (21-32); Chloride, Blood 110 mmol/L (98-108); Creatinine, Blood 0.89 mg/dL (0.40-1.00); Glomerular Filtration Rate >60 (60-); Glucose, Blood 93 mg/dL (70-99); Sodium, Blood 144 mmol/L (136-145)
--- NOTE | 2019-07-10 18:55 | NUR ---
SHIFT SUMMARY PT SLEEPING DURING SHIFT REPORT, RESTING QUIETLY ON 6L O2 VIA OXIMIZER. PT'S O2 INCREASED DURING NOC SHIFT AND THEREFORE OXIMIZER PLACED. PT WANTING OXIMIZER OFF AND NC PUT BACK ON. ST EVAL DONE TODAY WELL. ORDERS PLACED, PT ABLE TO EAT W/O APPARENT DIFFICULTY. DR ABEBE IN TO SEE PT THIS AM. NEW ORDERS PLACED FOR RT AND CPT. LUNGS T/O WITH COARSE CRACKLES AND SCATTERED WHEEZING. COARSE PC WELL. IV SL AFTER 1ST BAG NS. IV ABX ADMIN PER EMAR TONIGHT. SR WITH BBB PER TELE MX. PT MEDICATED WITH TYLENOL FOR C/O MARTINEZ THIS AM. NO FURTHER C/O. PT ABLE TO USE CALL LT APPRO. MEDS TAKEN WHOLE IN APPLESAUCE. REPORT GIVEN TO MEDINA ROBERTSON.
--- NOTE | 2019-07-11 00:22 | NUR ---
BEGINNING SHIFT SUMMARY ASSUMES CARE OF PT AT 1900. PT IS LYING IN BED WATCHING TV. HEART SOUNDS IRREGULAR, PERIPHERAL PULSES STRONG, IV SALINE LOCKED, DENIES CHEST PAIN, RHYTHMN NS WITH BBB @ 82 LUNG SOUNDS DIMINISHED, INSPITORY WHEEZES THROUGHOUT AND CRACKLES AT THE BASES, ON 7 LITERS OXYGEN VIA NASAL CANNULA. AT 0023 PT REPORTED HAVING DIFFICULTY BREATHING, PT REPOSITIONED, O2 TURNED UP TO 9 L AND PUT BACK ON HER OXIMIZER. RT CALLLED, RT STARTED HER ON HER BREATHING TREATMENT, CURRENT PULSE OXIMETRY READING @ 93%. PT STATES SHE FEELS BETTER. BOWEL SOUNDS HYPERACTIVE, DENIES TENDERNESS. PT IS CURRENTLY STILL ON HER BREATHING TREATMENT WATCHING TV. PT DENIES SOB. CALL LIGHT IN REACH, BED IN LOWEST POSTION, WILL CONTINUE TO MONITOR.
--- NOTE | 2019-07-11 05:10 | NUR ---
END SHIFT SUMMARY NO ACUTE CHANGES NOTED AFTER SOB EPISODE. PT IS LYING IN BED WATCHING TV. PT DENIES SOB AND STATES SHE IS FEELING BETTER. PT WAS AT 100% AT 9 LITERS O2, WAS REDUCED TO 7 LITERS O2 AND IS RUNNING AT 94%. CALL LIGHT IN REACH, BED IN LOWEST POSITION, WILL CONTINUE TO MONITOR UNTIL DAYSHIFT NURSE ARRIVES.
[2019-07-11 08:15] LABS: BASOPHILS ABSOLUTE AUTO 0.06 K/mm3 (0.00-0.23); BASOPHILS PERCENT AUTO 0 % (0-2); EOSINOPHILS ABSOLUTE AUTO 0.19 K/mm3 (0.00-0.68); EOSINOPHILS PERCENT AUTO 1 % (0-6); Hematocrit 37.6 % (33.0-51.0); Hemoglobin 11.1 g/dL (11.5-16.0); IMMATURE GRAN ABSOLUTE AUTO 0.26 K/mm3 (0.00-0.10); IMMATURE GRAN PERCENT AUTO 2 % (0-1); LYMPHOCYTES ABSOLUTE AUTO 0.83 K/mm3 (0.84-5.20); LYMPHOCYTES PERCENT AUTO 5 % (21-46); MONOCYTES ABSOLUTE AUTO 1.46 K/mm3 (0.16-1.47); MONOCYTES PERCENT AUTO 9 % (4-13); Mean Corpuscular HGB 27.9 pg (26.0-34.0); Mean Corpuscular HGB Conc 29.5 g/dL (31.5-36.5); Mean Platelet Volume 10.8 fL (9.1-12.4); NEUTROPHILS ABSOLUTE AUTO 13.43 K/mm3 (1.96-9.15); NEUTROPHILS PERCENT AUTO 83 % (41-73); Platelet Count 219 K/mm3 (150-400); RDW Coefficient Variation 15.6 % (11.7-14.2); Red Blood Cell Count 3.98 M/mm3 (3.80-5.20); White Blood Cell Count 16.23 K/mm3 (4.00-11.30)
[2019-07-11 08:19] LABS: Mean Corpuscular Volume 95 fL (80-100)
[2019-07-11 08:40] LABS: Anion Gap 3 mmol/L (6-16); Blood Urea Nitrogen 23 mg/dL (8-24); Bun/Creatinine Ratio 28.7 (12.0-20.0); CO2, Blood 31 mmol/L (21-32); Calcium, Blood 9.2 mg/dL (8.5-10.1); Chloride, Blood 111 mmol/L (98-108); Glomerular Filtration Rate >60 (60-); Glucose, Blood 111 mg/dL (70-99); Sodium, Blood 145 mmol/L (136-145)
[2019-07-11 14:34] LABS: PO2 Arterial 66.9 mmHg (80-100)
[2019-07-11 14:35] LABS: PCO2 Arterial 80.8 mmHg (35-45); pH Blood Arterial 7.24 (7.35-7.45)
--- NOTE | 2019-07-11 16:00 | NUR ---
REPORT CALLED TO ACOSTA ROBERTSON IN PCU FOR TRANSFER. PT MORE AWAKE APPROX 1/2 PRIOR TO TRANSFER. PT AWARE OF MOVE AND WAS ASKED IF THERE WAS ANYONE WHO NEEDED TO BE CALLED AND PT REPORTED NO. TRANSFEREED TO ROOM PCU 15 [id number].
--- NOTE | 2019-07-11 16:57 | NUR ---
PT ARRIVED FROM MEDICAL FLOOR VIA BED; PT ON 7L OXYMIZER; RT TO ROOM TO ASSIST PT W/ BIPAP; PT HAVING TROUBLE CATCHING BREATH; ANSWERS IN 1-2 WORD SENTENCES; SHALLOW, LABORED BREATHING; PCO2 80.8 AND PH 7.24; ABG TO BE REDRAWN IN AN HOUR; LASIX ADMINISTERED PER EMAR; ROCEPHIN STARTED; PT C/O BIPAP AND EDUCATED ON NEED AND COACHED ON LEANING HEAD BACK FOR AIRWAY; CALL LIGHT IN REACH; BED IN LOWEST POSITION; WILL CONTINUE TO MONITOR CLOSELY
[2019-07-11 17:25] LABS: PCO2 Arterial 71 mmHg (35-45); PO2 Arterial 47 mmHg (80-100); pH Blood Arterial 7.29 (7.35-7.45)
--- NOTE | 2019-07-11 17:55 | NUR ---
SHIFT SUMMARY PT SLEEPING W/ BIPAP ON; ABG SHOWS SLIGHT CHANGE; PT TO BE NPO UNTIL SIGNS OF IMPROVED ABG UPON NEXT DRAW DUE TO WORK OF BREATHING; CALL LIGHT IN REACH; BED IN LOWEST POSITION; WILL CONTINUE TO MONITOR UNTIL HAND OFF TO NOC RN
--- NOTE | 2019-07-11 18:23 | NUR ---
UPDATE PT HAD A 13 SECOND RUN OF SVT; MONITOR NOTIFIED OF VTACH BUT TECH STATED IT LOOKS LIKE SVT @ 1810; PT ASYMPTOMATIC; PT SLEEPING; NO CHANGE IN RR; HOSPITALIST NOTIFIED; NO NEW ORDERS GIVEN
[2019-07-11 19:25] LABS: pH Blood Arterial 7.33 (7.35-7.45)
[2019-07-12 03:53] LABS: BASOPHILS ABSOLUTE AUTO 0.08 K/mm3 (0.00-0.23); BASOPHILS PERCENT AUTO 1 % (0-2); EOSINOPHILS ABSOLUTE AUTO 0.26 K/mm3 (0.00-0.68); EOSINOPHILS PERCENT AUTO 2 % (0-6); Hematocrit 35.8 % (33.0-51.0); Hemoglobin 10.5 g/dL (11.5-16.0); IMMATURE GRAN ABSOLUTE AUTO 0.24 K/mm3 (0.00-0.10); IMMATURE GRAN PERCENT AUTO 2 % (0-1); LYMPHOCYTES ABSOLUTE AUTO 0.82 K/mm3 (0.84-5.20); LYMPHOCYTES PERCENT AUTO 5 % (21-46); MONOCYTES ABSOLUTE AUTO 1.29 K/mm3 (0.16-1.47); MONOCYTES PERCENT AUTO 8 % (4-13); Mean Corpuscular HGB 28.3 pg (26.0-34.0); Mean Corpuscular HGB Conc 29.3 g/dL (31.5-36.5); Mean Corpuscular Volume 97 fL (80-100); Mean Platelet Volume 10.9 fL (9.1-12.4); NEUTROPHILS ABSOLUTE AUTO 12.63 K/mm3 (1.96-9.15); NEUTROPHILS PERCENT AUTO 82 % (41-73); Platelet Count 224 K/mm3 (150-400); RDW Coefficient Variation 15.5 % (11.7-14.2); RDW Standard Deviation 55.1 fL (35.1-46.3); Red Blood Cell Count 3.71 M/mm3 (3.80-5.20); White Blood Cell Count 15.32 K/mm3 (4.00-11.30)
[2019-07-12 04:11] LABS: Anion Gap 0 mmol/L (6-16); Blood Urea Nitrogen 17 mg/dL (8-24); Bun/Creatinine Ratio 22.9 (12.0-20.0); CO2, Blood 37 mmol/L (21-32); Calcium, Blood 9.3 mg/dL (8.5-10.1); Chloride, Blood 108 mmol/L (98-108); Creatinine, Blood 0.74 mg/dL (0.40-1.00); Glomerular Filtration Rate >60 (60-); Glucose, Blood 95 mg/dL (70-99); Phosphorus, Blood 2.4 mg/dL (2.5-4.9); Potassium, Blood 3.9 mmol/L (3.5-5.5); Sodium, Blood 145 mmol/L (136-145)
--- NOTE | 2019-07-12 12:15 | NUR ---
ASSUMED CARE PT SLEEPING IN BED W/ BIPAP ON; HOB @45; PT SLEEPY; MASK OFF TO TAKE PO MEDS; VSS; PT DENIES NEEDS; DENIES PAIN AT THIS TIME; CALL LIGHT IN REACH; BED IN LOWEST POSITION
--- NOTE | 2019-07-12 17:51 | NUR ---
SHIFT SUMMARY PT SITTING UP IN BED EATING DINNER TRAY; PT IS A&O; PANICS W/ DYSPNEA AND NEEDS COACHED THROUGH TO TAKE SLOW DEEP BREATHS; PT LEFT BIPAP ON MOST OF THE DAY EXCEPT FOR MEAL TIMES; PT ON NECTAR THICK; CALL LIGHT IN REACH; BED IN LOWEST POSITION; WILL CONTINUE TO MONTIOR UNTIL HAND OFF TO NOC RN
--- NOTE | 2019-07-13 01:41 | NUR ---
Assumed care Assumed care at approx 1915; pt sitting in bed, oximyzer on at 8 L upon initial arrival. Pt alert and oriented, tachypneic and mild work to breathe at rest. Pt dyspneic with conversation and only speaks 1-3 words at a time. See shift assessment for detailed systems assessment. Pt takes medications whole in apple sauce. [place] thick fluids per ST. BIPAP placed on pt at approx 2130 on 35% fio2 with respirations up to 40. Pt coached on taking slow, deep breathes. Pt responds well to coaching and respirations sustaining down to 24. No acute concerns to note at this time, RT involved in care and rounding on pt. Call light in reach and pt able to make needs known with call light. Will continue to monitor.
--- NOTE | 2019-07-13 05:36 | NUR ---
SHIFT SUMMARY Pt with no acute events overnight. Remains on BIPAP as she sleeps with settings unchanged from begining of shift. Oxygen sats remains >92% with BIPAP on. When pt is awake, 6-8L oxymizer placed with stable o2 sats. VSS. Uses call light to make needs knonw. pt uses bedpan and assists with turning and repositions. Pt alert and oriented but with high anxiety. When anxious, pt hyperventilates up to 45 bpm. This pt responds well to coaching and will breathe deep and slow when instructed to. When instructed, pt can maintain respirations in 20's. While sleeping, pt breathes between 25-30 bpm. No acute declines to note overnight, no changes from initial shift assessment. Medicated once for pain, tylenol effective per pt. abx infused per orders and pt currently S/L. Will continue to monitor until day RN assumes care.
--- NOTE | 2019-07-13 08:02 | NUR ---
ASSUMED CARE PT A&O; PT ON OXYMIZER W/ 8L; O2 SATS >90; FAN ON NIGHTSTAND BLOWING ON PT; PT HAS BEEN CLEARED FROM ISOLATION PER INFECTION CONTROL; PT DENIES CHEST PAIN; DENIES NEEDS AT THIS TIME; CALL LIGHT IN REACH; BED IN LOWEST POSITION
[2019-07-13 12:14] LABS: BASOPHILS ABSOLUTE AUTO 0.06 K/mm3 (0.00-0.23); BASOPHILS PERCENT AUTO 0 % (0-2); EOSINOPHILS ABSOLUTE AUTO 0.27 K/mm3 (0.00-0.68); EOSINOPHILS PERCENT AUTO 2 % (0-6); Hematocrit 34.8 % (33.0-51.0); Hemoglobin 10.5 g/dL (11.5-16.0); IMMATURE GRAN ABSOLUTE AUTO 0.36 K/mm3 (0.00-0.10); IMMATURE GRAN PERCENT AUTO 2 % (0-1); LYMPHOCYTES ABSOLUTE AUTO 0.73 K/mm3 (0.84-5.20); LYMPHOCYTES PERCENT AUTO 5 % (21-46); MONOCYTES PERCENT AUTO 11 % (4-13); Mean Corpuscular HGB 28.4 pg (26.0-34.0); Mean Corpuscular HGB Conc 30.2 g/dL (31.5-36.5); Mean Platelet Volume 10.6 fL (9.1-12.4); NEUTROPHILS PERCENT AUTO 80 % (41-73); Platelet Count 236 K/mm3 (150-400); RDW Coefficient Variation 15.5 % (11.7-14.2); RDW Standard Deviation 53.7 fL (35.1-46.3); White Blood Cell Count 14.92 K/mm3 (4.00-11.30)
[2019-07-13 12:22] LABS: Mean Corpuscular Volume 94 fL (80-100)
[2019-07-13 12:38] LABS: Albumin, Blood 2.3 g/dL (3.4-5.0); Anion Gap 3 mmol/L (6-16); Blood Urea Nitrogen 16 mg/dL (8-24); Bun/Creatinine Ratio 25.2 (12.0-20.0); CO2, Blood 37 mmol/L (21-32); Chloride, Blood 102 mmol/L (98-108); Creatinine, Blood 0.64 mg/dL (0.40-1.00); Glomerular Filtration Rate >60 (60-); Glucose, Blood 125 mg/dL (70-99); Phosphorus, Blood 2.8 mg/dL (2.5-4.9); Potassium, Blood 3.8 mmol/L (3.5-5.5); Sodium, Blood 142 mmol/L (136-145)
[2019-07-14 04:17] LABS: BASOPHILS ABSOLUTE AUTO 0.06 K/mm3 (0.00-0.23); BASOPHILS PERCENT AUTO 1 % (0-2); EOSINOPHILS ABSOLUTE AUTO 0.44 K/mm3 (0.00-0.68); EOSINOPHILS PERCENT AUTO 4 % (0-6); Hematocrit 33.1 % (33.0-51.0); Hemoglobin 9.9 g/dL (11.5-16.0); IMMATURE GRAN ABSOLUTE AUTO 0.58 K/mm3 (0.00-0.10); IMMATURE GRAN PERCENT AUTO 5 % (0-1); LYMPHOCYTES ABSOLUTE AUTO 0.97 K/mm3 (0.84-5.20); LYMPHOCYTES PERCENT AUTO 8 % (21-46); MONOCYTES ABSOLUTE AUTO 1.68 K/mm3 (0.16-1.47); MONOCYTES PERCENT AUTO 14 % (4-13); Mean Corpuscular HGB 27.6 pg (26.0-34.0); Mean Corpuscular HGB Conc 29.9 g/dL (31.5-36.5); Mean Corpuscular Volume 92 fL (80-100); Mean Platelet Volume 10.6 fL (9.1-12.4); NEUTROPHILS ABSOLUTE AUTO 8.53 K/mm3 (1.96-9.15); NEUTROPHILS PERCENT AUTO 70 % (41-73); Platelet Count 232 K/mm3 (150-400); RDW Coefficient Variation 15.5 % (11.7-14.2); RDW Standard Deviation 52.1 fL (35.1-46.3); Red Blood Cell Count 3.59 M/mm3 (3.80-5.20); White Blood Cell Count 12.26 K/mm3 (4.00-11.30)
[2019-07-14 04:34] LABS: Albumin, Blood 2.2 g/dL (3.4-5.0); Anion Gap 4 mmol/L (6-16); Blood Urea Nitrogen 22 mg/dL (8-24); Bun/Creatinine Ratio 24.2 (12.0-20.0); CO2, Blood 37 mmol/L (21-32); Calcium, Blood 8.8 mg/dL (8.5-10.1); Chloride, Blood 101 mmol/L (98-108); Creatinine, Blood 0.91 mg/dL (0.40-1.00); Glomerular Filtration Rate >60 (60-); Glucose, Blood 98 mg/dL (70-99); Phosphorus, Blood 3.1 mg/dL (2.5-4.9); Potassium, Blood 3.9 mmol/L (3.5-5.5); Sodium, Blood 142 mmol/L (136-145)
--- NOTE | 2019-07-14 06:36 | NUR ---
SHIFT SUMMARY . ASSSUMED CARE AT 1900. VERY TACHEPNEC W/ ANY REPOSITIONING IN BED AND GUARDED DEEP BREATHING AND HESITATES TO TURN W/ PAIN OF LT HIP PER CHRONIC DISCOMFORT. TYLENOL GIVEN .AND ASSISTS SOME AND OFF TO SLEEP/ POOR AIR EXCHANGE BASES AND CRACKLES TO MID AND LOWER LUNG SANCHEZ. LOOSE COUGH AND NON PRODUCTIVE NOW. 3L REQUIRED WHEN NOT ON BIPAP. BIPAP WORN APPROX 6 HR LAST NOC.ENC TO TURN COUGH AND DEEP BREATHE. AND POOR EFFORT.PANTING BREATHS W/ ANY MOVEMENT AND ESCALATES W/ ANXIETY EASILY. FEW RUNS OF V TACH AND ASYMPTOMATIC. SEE PRINT OUT. 01/04 BIPAP AND 40 %. RR 28-38 AVERAGE
--- NOTE | 2019-07-14 17:51 | NUR ---
SHIFT SUMMARY PT ALERT AND ORIENTED. VS STABLE. O2 SATS REMAIN ABOVE 90% ON 4L NC AT REST, BUT PT DESATURATES QUICKLY WITH MINIMAL ACTIVITY TO LOW 80'S. PT TAKES MINUTES TO RECOVER. LS CRACKLES IN THE BASES. BP STABLE. PT DENIES ANY PAIN. PT USES BIPAP NEEDED WITH FIO2 OF 40%. PT REPOSITIONED NEEDED. WILL CONTINUE TO MONITOR AND REPORT TO ONCOMING RN. CALL LIGHT IN REACH.
[2019-07-15 04:01] LABS: BASOPHILS ABSOLUTE AUTO 0.06 K/mm3 (0.00-0.23); BASOPHILS PERCENT AUTO 1 % (0-2); EOSINOPHILS ABSOLUTE AUTO 0.53 K/mm3 (0.00-0.68); EOSINOPHILS PERCENT AUTO 5 % (0-6); Hematocrit 32.3 % (33.0-51.0); Hemoglobin 9.8 g/dL (11.5-16.0); IMMATURE GRAN ABSOLUTE AUTO 0.67 K/mm3 (0.00-0.10); IMMATURE GRAN PERCENT AUTO 7 % (0-1); LYMPHOCYTES ABSOLUTE AUTO 1.14 K/mm3 (0.84-5.20); LYMPHOCYTES PERCENT AUTO 12 % (21-46); MONOCYTES ABSOLUTE AUTO 1.46 K/mm3 (0.16-1.47); MONOCYTES PERCENT AUTO 15 % (4-13); Mean Corpuscular HGB Conc 30.3 g/dL (31.5-36.5); Mean Corpuscular Volume 92 fL (80-100); Mean Platelet Volume 10.3 fL (9.1-12.4); NEUTROPHILS ABSOLUTE AUTO 5.87 K/mm3 (1.96-9.15); NEUTROPHILS PERCENT AUTO 60 % (41-73); Platelet Count 233 K/mm3 (150-400); RDW Coefficient Variation 15.7 % (11.7-14.2); RDW Standard Deviation 52.7 fL (35.1-46.3); White Blood Cell Count 9.73 K/mm3 (4.00-11.30)
[2019-07-15 04:26] LABS: Albumin, Blood 2.3 g/dL (3.4-5.0); Anion Gap 4 mmol/L (6-16); Blood Urea Nitrogen 20 mg/dL (8-24); Bun/Creatinine Ratio 23.7 (12.0-20.0); CO2, Blood 39 mmol/L (21-32); Calcium, Blood 8.7 mg/dL (8.5-10.1); Chloride, Blood 97 mmol/L (98-108); Creatinine, Blood 0.84 mg/dL (0.40-1.00); Glomerular Filtration Rate >60 (60-); Glucose, Blood 123 mg/dL (70-99); Phosphorus, Blood 3.2 mg/dL (2.5-4.9); Potassium, Blood 3.6 mmol/L (3.5-5.5); Sodium, Blood 140 mmol/L (136-145)
[2019-07-15 04:41] LABS: BASOPHILS PERCENT MAN 0 % (0-2); EOSINOPHILS ABSOLUTE MAN 0.77 K/mm3 (0.00-0.68); EOSINOPHILS PERCENT MAN 8 % (0-6); LYMPHOCYTES ABSOLUTE MAN 1.94 K/mm3 (0.84-5.20); LYMPHOCYTES PERCENT MAN 20 % (21-46); METAMYELOCYTE ABSOLUTE MAN 0.09 K/mm3 (0.00-0.00); METAMYELOCYTE PERCENT MAN 1 % (0-0); MONOCYTES ABSOLUTE MAN 0.68 K/mm3 (0.16-1.47); MONOCYTES PERCENT MAN 7 % (4-13); MYELOCYTE ABSOLUTE MAN 0.29 K/mm3 (0.00-0.00); MYELOCYTE PERCENT MAN 3 % (0-0); NEUTROPHILS ABSOLUTE MAN 5.93 K/mm3 (1.96-9.15); SEG NEUTROPHILS PERCENT MAN 61 % (41-73); TOTAL CELLS COUNTED 100
--- NOTE | 2019-07-15 06:02 | NUR ---
SHIFT SUMMARY. ASSUMED CARE AT 1900 AND 5L NC NEEDED WHEN NOT ON BIPAP. EXTREMELY TACHEPNEC W/ ANY EXERTION. AND ON BED REST ALL NOC. FEEDING PROGRAM CHANGE FOLLOWED AND COMPLETE SUPERVISION . NO SWALLOWING ISSUES NOTED. TYLENOL GIVEN X 1 FOR LT HIP PAIN . COMFORTBLE AT BASELINE. WORE BIPAP APPROX 6 HR THIS SHIFT. 14/8 INITIALLY THEN CHANGEED TO 12/6 PER RT LATER HALF OF SHIFT. 40% FIO2 THEN REDUCED TO 35% FIO2,. FEW SHORT RUMS OF V TACH. PACED, PAC, BBB.SLEPT ALOT LAST NOC ON BIPAP. REPOSITIONED AND BED PIMENTEL USE.
--- NOTE | 2019-07-15 14:25 | NUR ---
ASSUMED CARE APPROXIMATELY 0700; PT ALERT; NC 4 L; O2 SATS >94; PT DENIES CHEST PAIN; DENIES NEEDS; STATES SHE DID NOT SLEEP WELL LAST NIGHT AND WANTS TO SLEEP; CALL LIGHT IN REACH; BED IN LOWEST POSITION;
--- NOTE | 2019-07-15 16:01 | NUR ---
Initial palliative care consult: Miranda is a 69 year old with a history of COPD O2 dependent at 2 l/min, paradoxical a-fib, CAD, CHF, HTN, anxiety, PTSD, depression. She was admitted on 07/09/19 with multilobar pneumonia. Miranda is laying in bed during my visit today with the HOB elevated. She is currently on 4.5 l/min of O2 and is able to maintain a conversation without increased SOB. Sats during my visit remained 92-94%. She is awake, alert, and pleasant. She reports she lives at the [facility] and has a caregiver 5 days a week in the mornings. She states she thinks she gets about 25 hours/week, reviewed CM notes and that note states she receives 22 hours/week. She is followed by [facility] and has an [employer] garage door installer. Her caregiver cooks, cleans, assists with ADLs and transportation to appoinments and shops for her. She reports that it is getting more and more difficult to manage at home due to her increasing SOB with activity. 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 She also states finances are tight. She reporst that 3/4 of her income goes toward her rent and she is expecting her rent to increase in 09/2019. Symptom review conducted. Pt reports her SOB is improving from when she was first admitted. She reports left hip pain that sometimes "shoots down my leg." She also c/o restless legs. She states she has been on mirapex for a long time and it doesn't work as well for her anymore. She c/o tenderness around her pacemaker site that started when she reached for something a few days ago. No swelling noted around pacemaker site. Miranda reports the tylenol sometimes helps with her hip discomfort. She was scheduled to have a hip replacement a couple years ago, however she reports she got pneumonia prior to the surgery and it had to be cancelled. She reports now that her lungs "Are not good" and "surgery isn't an option anymore." Discussed option of heat, and possibly contacting MD for a lidoderm patch for relief. Talked about disease progression and the likelihood of needing more assistance at home. She admits that the time when she will need this increased care is coming soon. She states that she might be willing to go and tour some facilities to see if something would be a good fit for her. She likes her solitude and her current caregiver but recognizes that things may need to change soon. Also discussed some shelter planning with information on increasing care needs and hospice. Miranda has some knowledge of hospice services and states that she would like more information on hospice. Pamphlet provided. Spoke with LUZ MARIA Ngo, who will provide pt with information on differnt INTERMEDIATE per pt's request. PC will contact Dr. Ahn to address symptom management.
--- NOTE | 2019-07-15 18:41 | NUR ---
PT A&O: WAS UP TO CHAIR FOR DINNER TRAY FOR SHORT TIME T/O FAIR; PT REQUESTED TO BE BACK IN BED; 4 L NC; O2 SATS >94; PEDAL AND RADIAL PULSES STRONG; PT REQUESTED LIGHT OFF AND WANTS TO NAP; DENIED BIPAP AT THIS TIME: CALL LIGHT IN REACH; BED IN LOWEST POSITION; WILL CONTINUE TO MONITOR CLOSELY UNTIL HAND OFF TO NOC RN
--- NOTE | 2019-07-16 04:54 | NUR ---
shift summary: patient did refused 2100 medications and did not want the BIPAP on for more than 4 hours this shift. patient educated on necessity of medications and BIPAP but still refused. VSS, call light within reach, bed low and locked.
--- NOTE | 2019-07-16 08:15 | NUR ---
PT PLEASANT COOP MAKES MANY REQUESTS. GENERALLY ANXIOUS AND SOB WITH EXERTION. LIGHT PAIN IN HIP. PAIN PATCH TO BE APPLIED. H/R REG,NO MURMER NOTED. PER TELE NSR AT 65. PACER AICD LUCW. LUNGS CLEAR WITH CRACKLES BASES. ON 4L O2 AT THIS TIME. BIPAP AVAIL NEED. RESP EASY, UNLABORED. SHALLOW. BT X4 LAST BM YEST. VOIDS PER BSC. 1 ASST. SOME INCONT. BED IN LOW POSITION, CALL LITE IN REACH, CALLS APPROP AND REGULARLY.
--- NOTE | 2019-07-16 17:47 | NUR ---
PT PLEASANT TODAY. DENIES PAIN. GOT PATIENT UP TO BSC WITH MODERATE 1 ASST. MOVED BACK TO BED, THEN BACK TO CHAIR FOR DINNER. PT JOSEPH WELL. DID TURN O2 UP TO 5 L DURING MOVMENT. STATES HELPED SOME. PT TALKATIVE. KIDS WERE IN TODAY. NO OTHER CONCERNS AT THIS TIME. BED IN LOW POSITION, CALL LITE IN REACH, CALLS APPROP. PT ADMITS CALLS OFTEN GETS LONELY.
--- NOTE | 2019-07-17 05:34 | NUR ---
SHIFT SUMMARY: PATIENT INCONTINENT SEVERAL TIMES THIS SHIFT, VSS, CALL LIGHT WITHN REACH, BED LOW AND LOCKED.
--- NOTE | 2019-07-17 19:32 | NUR ---
SHIFT SUMMARY PATIENT STATES SHE FEELS BETTER TODAY. DESATS WITH ACTIVITY, DID TOLERATE WORKING WITH PT AND UP TO RECLINER CHAIR. APPETITE GOOD. VSS. APAP ADMIN FOR C/O L HIP PAIN X1 WITH GOOD RESULTS PER PATIENT. NO C/O AT THIS TIME. NO ACUTE CHANGES.
--- NOTE | 2019-07-17 22:07 | NUR ---
ASSUMED CARE OF PATIENT AT APPROXIMATELY 1905 FROM MARLA Myrick RN. PATIENT ALERT AND ORIENTED X4; WEAKNESS; CHAIRFAST. PATIENT REPORTS CHRONIC PAIN IN LEFT HIP; REPORTS "PAIN IS NEVER GONE"; MEDICATED PER EMAR; WARMING BLANKETS GIVEN. PATIENT DENIES NUMBNESS, TINGLING, DIZZINESS OR NAUSEA. PIV S/L. PATIENT USES BEDPAN; ATTENDS FOR INCONTINENCE. TAKES PILLS IN APPLESAUCE. NSR ON TELE; OXYGEN SATURATION ABOVE 90% ON 2LPM VIA NC OR BIPAP 25% FIO2. PATIENT CURRENTLY RESTING IN BED; CALL LIGHT IN REACH; BED IN LOWEST POSISTION; BED ALARM ON; WILL CONTINUE TO MONITOR AND ASSESS UNTIL END OF SHIFT.
--- NOTE | 2019-07-18 02:21 | NUR ---
PLUEREX DRESSING REENFORCED PT OFFSET LITHOGRAPHIC PRESS SETTER LIGHT TO REPORT GOWN WET. PLUEREX DRAIN DRESSING NOTED TO BE SATURATED AND TEGADERM DRESSING LIFTED AWAY FROM ABSORBET DRAIN SPONGE. STERILE 4X4 GAUZE PADS APPLIED TO SITE OVER TOP OF DRAIN SPONGE AND NEW TEGADERM DRESSING PLACED OVER TOP OF SITE TO REENFORCE DRESSING.
[2019-07-18 03:50] LABS: Hematocrit 33.3 % (33.0-51.0); Hemoglobin 9.8 g/dL (11.5-16.0); Mean Corpuscular HGB 27.7 pg (26.0-34.0); Mean Corpuscular HGB Conc 29.4 g/dL (31.5-36.5); Mean Corpuscular Volume 94 fL (80-100); Mean Platelet Volume 9.8 fL (9.1-12.4); Platelet Count 279 K/mm3 (150-400); RDW Coefficient Variation 15.4 % (11.7-14.2); RDW Standard Deviation 53.7 fL (35.1-46.3); Red Blood Cell Count 3.54 M/mm3 (3.80-5.20); White Blood Cell Count 13.28 K/mm3 (4.00-11.30)
[2019-07-18 04:11] LABS: Albumin, Blood 2.5 g/dL (3.4-5.0); Anion Gap 4 mmol/L (6-16); BAND PERCENT MAN 5 % (0-8); BASOPHILS ABSOLUTE MAN 0.13 K/mm3 (0.00-0.23); BASOPHILS PERCENT MAN 1 % (0-2); Blood Urea Nitrogen 22 mg/dL (8-24); Bun/Creatinine Ratio 23.7 (12.0-20.0); CO2, Blood 38 mmol/L (21-32); Calcium, Blood 8.6 mg/dL (8.5-10.1); Chloride, Blood 99 mmol/L (98-108); Creatinine, Blood 0.93 mg/dL (0.40-1.00); EOSINOPHILS ABSOLUTE MAN 0.92 K/mm3 (0.00-0.68); EOSINOPHILS PERCENT MAN 7 % (0-6); Glomerular Filtration Rate >60 (60-); Glucose, Blood 100 mg/dL (70-99); LYMPHOCYTES ABSOLUTE MAN 1.85 K/mm3 (0.84-5.20); LYMPHOCYTES PERCENT MAN 14 % (21-46); METAMYELOCYTE ABSOLUTE MAN 0.13 K/mm3 (0.00-0.00); METAMYELOCYTE PERCENT MAN 1 % (0-0); MONOCYTES ABSOLUTE MAN 0.53 K/mm3 (0.16-1.47); MONOCYTES PERCENT MAN 4 % (4-13); NEUTROPHILS ABSOLUTE MAN 9.69 K/mm3 (1.96-9.15); Phosphorus, Blood 3.3 mg/dL (2.5-4.9); Potassium, Blood 3.9 mmol/L (3.5-5.5); SEG NEUTROPHILS PERCENT MAN 68 % (41-73); Sodium, Blood 141 mmol/L (136-145); TOTAL CELLS COUNTED 100
--- NOTE | 2019-07-18 06:09 | NUR ---
SHIFT SUMMARY PT SLEEPING IN ROOM COMFORTABLY AT THIS TIME. NO ACUTE CHANGES IN STATUS T/O NIGHT. PT SLEPT WELL IN PERIODS. PT REPOPRTED PAIN TO L HIP AND WAS MEDICATED PER EMAR. KPAD IN PLACE FOR COMFORT. RESP EVEN UNLABORED ON 2L NC W/ SATS >92%. DENIED ANY CP OR SOB T/O NIGHT. PT DID NOT USE BIPAP IN ROOM T/O NIGHT, NO DESATS NOTED. ATTENDS IN PLACE D/T OCCASIONAL INCONTINENCE, PT CALLS FOR BED PIMENTEL. PT IS BED/CHAIRFAST. DENIES OTHER NEEDS. CALL LIGHT IN REACH.
--- NOTE | 2019-07-18 08:46 | NUR ---
ASSUMED CARE: REPORT RECEIVED FROM VIANCA Marcano RN. ASSUMED CARE OF THIS PT AT APPROX 0700. ON ASSESSMENT THE PT IS AWAKE, SITTING UP IN CHAIR, A&O. SHE DENIES SOB BUT DOES HAVE C/O L HIP PAIN & IS REQUESTING TYLENOL, MEDS PER EMAR. PT ON 3L O2 VIA NC W/ O2 SATS > 92%. MONITOR SHOWS SR W/ BBB & PACs, HR 780s. BP STABLE. PT HAS NO GI COMPLAINTS, WEARING ATTENDS FOR OCCASIONAL URINARY INCONTINENCE. WILL CONTINUE TO MONITOR & UPDATE NEEDED.
--- NOTE | 2019-07-18 18:18 | NUR ---
SHIFT SUMMARY: NO ACUTE CHANGES THIS SHIFT. PT REMAINS A&O, PLEASANT & COOPERATIVE. SHE HAS RESTED WELL THIS AFTERNOON W/ MINIMAL C/O PAIN TO L HIP. LS ARE COARSE IN BASES W/ OCC WHEEZING NOTED. PT CURRENTLY ON 3L NC W/ O2 SATS > 92%. MONITOR SHOWS SR W/ BBB & PACs, HR 70s, BP STABLE. PT HAS NO GI COMPLAINTS & HAS GOOD APPETITE. VOIDS W/O DIFFICULTY, OCC URGENCY INCONTINENCE W/ ATTENDS IN PLACE. WILL CONTINUE TO MONITOR & REPORT OFF TO ONCOMING RN.
[2019-07-19 04:21] LABS: BASOPHILS ABSOLUTE AUTO 0.08 K/mm3 (0.00-0.23); BASOPHILS PERCENT AUTO 1 % (0-2); EOSINOPHILS ABSOLUTE AUTO 0.53 K/mm3 (0.00-0.68); EOSINOPHILS PERCENT AUTO 4 % (0-6); IMMATURE GRAN ABSOLUTE AUTO 0.68 K/mm3 (0.00-0.10); IMMATURE GRAN PERCENT AUTO 5 % (0-1); LYMPHOCYTES ABSOLUTE AUTO 1.37 K/mm3 (0.84-5.20); LYMPHOCYTES PERCENT AUTO 11 % (21-46); MONOCYTES ABSOLUTE AUTO 1.11 K/mm3 (0.16-1.47); MONOCYTES PERCENT AUTO 9 % (4-13); Mean Corpuscular HGB 28.1 pg (26.0-34.0); Mean Corpuscular HGB Conc 29.4 g/dL (31.5-36.5); Mean Corpuscular Volume 96 fL (80-100); Mean Platelet Volume 9.5 fL (9.1-12.4); NEUTROPHILS ABSOLUTE AUTO 8.75 K/mm3 (1.96-9.15); NEUTROPHILS PERCENT AUTO 70 % (41-73); Platelet Count 262 K/mm3 (150-400); RDW Coefficient Variation 15.5 % (11.7-14.2); RDW Standard Deviation 53.3 fL (35.1-46.3); Red Blood Cell Count 3.56 M/mm3 (3.80-5.20); White Blood Cell Count 12.52 K/mm3 (4.00-11.30)
[2019-07-19 04:35] LABS: Albumin, Blood 2.5 g/dL (3.4-5.0); Anion Gap 1 mmol/L (6-16); Blood Urea Nitrogen 20 mg/dL (8-24); Bun/Creatinine Ratio 27.8 (12.0-20.0); CO2, Blood 39 mmol/L (21-32); Calcium, Blood 8.6 mg/dL (8.5-10.1); Chloride, Blood 103 mmol/L (98-108); Creatinine, Blood 0.72 mg/dL (0.40-1.00); Glomerular Filtration Rate >60 (60-); Glucose, Blood 94 mg/dL (70-99); Phosphorus, Blood 3.1 mg/dL (2.5-4.9); Potassium, Blood 3.9 mmol/L (3.5-5.5); Sodium, Blood 143 mmol/L (136-145)
[2019-07-19 04:39] LABS: BAND PERCENT MAN 1 % (0-8); BASOPHILS PERCENT MAN 0 % (0-2); EOSINOPHILS ABSOLUTE MAN 0.37 K/mm3 (0.00-0.68); EOSINOPHILS PERCENT MAN 3 % (0-6); LYMPHOCYTES PERCENT MAN 12 % (21-46); MONOCYTES PERCENT MAN 8 % (4-13); MYELOCYTE ABSOLUTE MAN 0.25 K/mm3 (0.00-0.00); MYELOCYTE PERCENT MAN 2 % (0-0); NEUTROPHILS ABSOLUTE MAN 9.39 K/mm3 (1.96-9.15); SEG NEUTROPHILS PERCENT MAN 74 % (41-73); TOTAL CELLS COUNTED 100
--- NOTE | 2019-07-19 05:19 | NUR ---
SHIFT SUMMARY PATIENT A&O, COOPERATIVE, BUT ANXIOUS AT TIMES. PAIN WELL CONTROLLED WITH LIDOCAIN PATCH WITH JUST ONE PRN TYLENOL REQUETED FOR HIP PAIN. LUNG SOUNDS COARSE AT THE BASES WITH EXPIRATORY WHEEZES. SATS ABOVE 92% ON 3L NC. NSR WITH BBB AND PACS. PATIENT VOIDS WITH BEDSIDE COMMODE WITH ASSISTANCE OF TWO PEOPLE. SKIN BRUISED THROUGHOUT. WILL CONTINUE TO MONITOR UNTIL SHIFT REPORT TO ONCOMING NURSE.
--- NOTE | 2019-07-19 08:00 | NUR ---
ASSUMED CARE OF PT AT 0700. REPORT FROM MARIA C ROBERTSON. PT RESTING IN BED. ALERT, C/O CHRONIC LEFT HIP PAIN. REPORTS PREVIOUS FX THAT WAS NOT REPAIRED. LUNGS COARSE THROUGH, NO WHEEZING NOTED AT THIS TIME. PT ON 3L O2 VIA NC. O2 SATS >95%. PT REPORTS SOB c EXERTION. ONE PERSON ASSIST TO BEDSIDE COMMODE. ABD ROUND, SOFT AND NON TENDER. BT X 4. WILL CONTINUE TO MONITOR.
--- NOTE | 2019-07-19 10:49 | NUR ---
DR ABEBE IN TO SEE PT THIS AM. PLAN FOR PT/OT CONSULT TODAY.
--- NOTE | 2019-07-19 17:37 | NUR ---
SHIFT SUMMARY PT A&OX 4. ABLE TO TRANSFER TO BEDSIDE COMMODE c ONE PERSON STAND BY ASSIST. DYSPNEA c EXERTION. RECOVERS QUICKLY WHEN AT REST. LUNGS COARSE THROUGHOUT. NO WHEEZING NOTED AT THIS TIME. PT ON 3L VIA NC. VSS. SWALLOW PRECAUTIONS, NO ASSITANCE NEEDED c MEALS. PLAN FOR PT/OT EVAL TOMORROW AND POSSIBLE D/C PER DR ABEBE. REPORT TO ONCOMING NURSE.
--- NOTE | 2019-07-20 06:00 | NUR ---
SHIFT SUMMARY . ASSUMED CARE AT 1900. OOB IN CHAIR FOR A FEW HOURS AND TOLERATED WELL. EXERTION DOES CAUSE ESCALATING ANXIOUSNESS AND TACHEPNEAL. 3L ALL NOC EXCEPT OCC UP TO 4L WHILE DESAT ON EXERTION. NOSE BLEED OCCURRED THIS SHIFT AND A FEW HOURS TAKEN TO GET UNDER CONTROL . USED ICE, PINCHING BRIDGE OF NOSE,LIGHT CLAMP FROM ED AND THEN THIN STRIP GAUZE PACKING IN LT NOSTRIL. FINALLY SUBSIDED AND THEN REMOVED THE LIGHT PACKING JTHIS AM W/O RE BLEED. ENC TO COUGH AND DEEP BREATHE AND TURN. VERY ANNOYED BY STAFF KEEPING HER UP SO MUCH OF THE NOC. SNACKING ON FOOD AND FLUIDS LAST NOC,. SLEEPS IN HIGH FOWLERS AND SAT IMPAIRMENT W/ POSITION PT FALLS ASLEEP IN AND AWAKENED FOR BETTER SAT .SR, BBB,PAC,PACED. TYLENOL FOR MARTINEZ AND LT HIP PAIN
--- NOTE | 2019-07-20 07:41 | NUR ---
ASSUMED CARE: PT SITTING UPRIGHT IN BED. 3L NC IN PLACE. DENIES NEEDS OR CONCERNS AT THIS TIME.
[2019-07-20] MEDS ORDERED: Aspir 8181 MG PO (11:01)
[2019-07-20] MEDS ORDERED: Prednisone10 MG PO (11:14)
--- NOTE | 2019-07-20 14:30 | NUR ---
PT'S IV DC'D AND TELE REMOVED. PT GIVEN INSTRUCTIONS ABOUT FOLLOW UP WITH PCP AND PULMONOLOGY. ALSO DISCUSSED WITH RONN FOR HIGH RISK READMIT. INSTRUCTIONS GIVEN ON MEDICATIONS TO TAKE. DENIED FURTHER QUESTIONS OR NEEDS. ESCORTED OUT VIA WHEEL CHAIR BY HOSPITAL STAFF.
== END 2019-07-20 14:19 | disposition home or self-care (01) | DRG 871 ==
LOC: ER 14:33 → PCU 16:54 → MEDS 16:54 → PCU 07-11 15:38
PROVIDERS: Emergency Medicine; Family Medicine; ADMIT Internal Medicine
DX: A41.9 Sepsis, unspecified organism (principal); J14 Pneumonia due to Hemophilus influenzae; J96.21 Acute and chronic respiratory failure with hypoxia; I50.23 Acute on chronic systolic (congestive) heart failure; J44.0 Chronic obstructive pulmonary disease with (acute) lower respiratory infection; J44.1 Chronic obstructive pulmonary disease with (acute) exacerbation; N17.9 Acute kidney failure, unspecified; R65.20 Severe sepsis without septic shock; I25.10 Atherosclerotic heart disease of native coronary artery without angina pectoris; I11.0 Hypertensive heart disease with heart failure; F32.9 Major depressive disorder, single episode, unspecified; D50.9 Iron deficiency anemia, unspecified; Z74.09 Other reduced mobility; I48.0 Paroxysmal atrial fibrillation; Z79.01 Long term (current) use of anticoagulants; Z99.81 Dependence on supplemental oxygen; F43.10 Post-traumatic stress disorder, unspecified; Z66 Do not resuscitate; D63.8 Anemia in other chronic diseases classified elsewhere
CPT/HCPCS: 36415; 36600; 71045; 71046; 80048; 80053; 80069; 81001; 82803; 83605; 83735; 83880; 84100; 84484; 85025; 87040; 87070; 87077; 87081; 87086; 87185; 87186; 87205; 92526; 92610; 93005; 93010; 94640; 94660; 94667; 94668; 94760; 94762; 96365; 96367; 97162; 97165; 97530; 97535; 99285-25; A9270; J0456; J0696; J1940; J1956; J7030; J7050

== ENCOUNTER 2019-09-20 20:35 | Inpatient (IN) | payer OTHER ==
[~2019-09-20] VITALS: Ht 154.9 cm; Wt 58.8 kg
[~2019-09-20 20:35] MED LIST changes: +ATORVASTATIN CA20 MG PO; +Econazole Nitra15 GM TOP; +FUROSEMIDE40 MG PO; +POTASSIUM CHLO20 ME1 PO; +SPIRIVA RESPIMAT4 GM INH; +Zantac150 MG PO
[2019-09-20] MEDS ORDERED: PRAM.5 PO (20:58)
[2019-09-20] MEDS ORDERED: Betamethasone V15 G1 (20:59)
[2019-09-20] MEDS ORDERED: MYRBETRIQ50 MG PO (21:00)
[2019-09-20] MEDS ORDERED: PROAIR RESPICL90 MCG IH (21:00)
[2019-09-20 21:34] LABS: BASOPHILS ABSOLUTE AUTO 0.11 K/mm3 (0.00-0.23); BASOPHILS PERCENT AUTO 1 % (0-2); EOSINOPHILS ABSOLUTE AUTO 0.56 K/mm3 (0.00-0.68); EOSINOPHILS PERCENT AUTO 3 % (0-6); Hematocrit 31.9 % (33.0-51.0); Hemoglobin 9.2 g/dL (11.5-16.0); IMMATURE GRAN ABSOLUTE AUTO 0.26 K/mm3 (0.00-0.10); IMMATURE GRAN PERCENT AUTO 1 % (0-1); LYMPHOCYTES PERCENT AUTO 7 % (21-46); MONOCYTES ABSOLUTE AUTO 1.79 K/mm3 (0.16-1.47); MONOCYTES PERCENT AUTO 8 % (4-13); Mean Corpuscular HGB 27.5 pg (26.0-34.0); Mean Corpuscular HGB Conc 28.8 g/dL (31.5-36.5); Mean Corpuscular Volume 95 fL (80-100); Mean Platelet Volume 9.9 fL (9.1-12.4); NEUTROPHILS ABSOLUTE AUTO 18.41 K/mm3 (1.96-9.15); NEUTROPHILS PERCENT AUTO 81 % (41-73); Platelet Count 411 K/mm3 (150-400); RDW Coefficient Variation 13.7 % (11.7-14.2); RDW Standard Deviation 47.8 fL (35.1-46.3); Red Blood Cell Count 3.35 M/mm3 (3.80-5.20); White Blood Cell Count 22.83 K/mm3 (4.00-11.30)
[2019-09-20 21:48] LABS: Alanine Aminotransfer (ALT/SGP 34 U/L (12-78); Albumin, Blood 2.5 g/dL (3.4-5.0); Albumin/Globulin Ratio 0.6 (0.8-1.8); Alk Phos 171 U/L (50-136); Anion Gap 3 mmol/L (6-16); Aspartate Aminotrans (AST/SGOT 24 U/L (12-37); Bilirubin, Total 0.2 mg/dL (0.1-1.0); Blood Urea Nitrogen 20 mg/dL (8-24); Bun/Creatinine Ratio 29.1 (12.0-20.0); CO2, Blood 38 mmol/L (21-32); Calcium, Blood 8.5 mg/dL (8.5-10.1); Chloride, Blood 101 mmol/L (98-108); Creatinine, Blood 0.69 mg/dL (0.40-1.00); Glomerular Filtration Rate >60 (60-); Glucose, Blood 84 mg/dL (70-99); Potassium, Blood 4.3 mmol/L (3.5-5.5); Sodium, Blood 142 mmol/L (136-145); Total Protein, Blood 6.5 g/dL (6.4-8.2); Troponin I <0.015 ng/mL (0.000-0.040)
[2019-09-20 22:37] LABS: PCO2 Arterial 68.5 mmHg (35-45); PO2 Arterial 78.7 mmHg (80-100); pH Blood Arterial 7.36 (7.35-7.45)
--- NOTE | 2019-09-20 23:39 | NUR ---
CALLED FOR REPORT AT 2338, ED RN TO CALL BACK WHEN AVAILABLE.
--- NOTE | 2019-09-21 | NUR ---
PT ARRIVAL Pt arrives at 0000 with ED RN at bedside on 5L NC breathing even, labored, tachypneic RR 30. Pt restless, SOB, unable to speak more than 3 words at a time. Pt requiring slide transfer d/t HULL and weakness. Pt is alert and oriented, able to make needs known, conversing appropriately. Coarst lungs t/o, moist cough, not productive at this time. Sputum sample to be collected. Tele shows sinus, BBB, PVC, PAC. PAC more often than PVC. See admission assessment for detailed systems assessment. Pt with saturated attends, pt able to assist with turning attends changed and dry at this time. Levoquin infusing into YOANA PIV upon arrival. Site wnl. Will continue to monitor. NO acute concerns at this time.
[2019-09-21] MEDS ORDERED: ALKA-SELTZER P1 EAC4 PO (00:14)
--- NOTE | 2019-09-21 04:59 | NUR ---
Shift Summary Pt is an ED admit this NOC with respiratory failure secondary to possible PNA. Pt able to be titrated from 5LNC to 3.5L NC with o2 remaining 90-92%. Pt's baseline o2 is 2L NC. Pt breathing even, tachypneic, labored at times. Pt with anxiety and restless legs. Bedpan for voiding. Pt able to assist with bedpan, only one person necessary for bathroom assistance. Pt alert and oriented. Able to make needs known. Vital remain stable this shift. No events on tele. Will continue to monitor.
[2019-09-21 08:25] LABS: BASOPHILS ABSOLUTE AUTO 0.06 K/mm3 (0.00-0.23); BASOPHILS PERCENT AUTO 0 % (0-2); EOSINOPHILS PERCENT AUTO 0 % (0-6); Hematocrit 32.6 % (33.0-51.0); Hemoglobin 9.5 g/dL (11.5-16.0); IMMATURE GRAN PERCENT AUTO 1 % (0-1); LYMPHOCYTES ABSOLUTE AUTO 0.39 K/mm3 (0.84-5.20); LYMPHOCYTES PERCENT AUTO 2 % (21-46); MONOCYTES ABSOLUTE AUTO 0.12 K/mm3 (0.16-1.47); MONOCYTES PERCENT AUTO 1 % (4-13); Mean Corpuscular HGB 27.5 pg (26.0-34.0); Mean Corpuscular HGB Conc 29.1 g/dL (31.5-36.5); Mean Corpuscular Volume 94 fL (80-100); Mean Platelet Volume 9.7 fL (9.1-12.4); NEUTROPHILS PERCENT AUTO 96 % (41-73); Platelet Count 401 K/mm3 (150-400); RDW Coefficient Variation 13.8 % (11.7-14.2); RDW Standard Deviation 47.8 fL (35.1-46.3); Red Blood Cell Count 3.46 M/mm3 (3.80-5.20); White Blood Cell Count 21.47 K/mm3 (4.00-11.30)
[2019-09-21 08:44] LABS: Anion Gap 5 mmol/L (6-16); Blood Urea Nitrogen 18 mg/dL (8-24); Bun/Creatinine Ratio 28.9 (12.0-20.0); CO2, Blood 34 mmol/L (21-32); Calcium, Blood 9.1 mg/dL (8.5-10.1); Chloride, Blood 101 mmol/L (98-108); Creatinine, Blood 0.62 mg/dL (0.40-1.00); Glomerular Filtration Rate >60 (60-); Glucose, Blood 166 mg/dL (70-99); Potassium, Blood 4.6 mmol/L (3.5-5.5); Sodium, Blood 140 mmol/L (136-145)
--- NOTE | 2019-09-21 15:01 | NUR ---
Spiritual care visit conducted. Patient is sitting up in bed and alert. Patient tells me that she is SOB and can't talk but would love for me to say a prayer for her. I gladly provide prayer. Patient asks if I could come and visit her again tomorrow. I state that I will.
--- NOTE | 2019-09-21 18:30 | NUR ---
SHIFT SUMMARY NO ACUTE CHANGES NOTED THROUGH THE DAY. PT REMAINS A&O X4, VSS, ON 3.5 L VIA NC, BREATHING TX PRN. PT WAS ABLE TO WORK WITH THERAPY AND SIT UP THE CHAIR FOR AWHILE. HOME DOSE OF PROZAC HAS BEEN ORDERED AND WILL BE STARTED TONIGHT. FAMILY IN TO VISIT THIS AFTERNOON. SOCIAL SERVICE CONSULT PLACED DUE TO PT'S HOME LIVING SITUATION. PTS DAUGHTER STATES HER MOM'S HOUSE "HAS MOLD AND SHE MAY NEED TO BE PLACED IN A [facility]" CALL LIGHT IN REACH. WCBILLIE AND REPORT TO LARRY ROBERTSON.
--- NOTE | 2019-09-21 20:15 | NUR ---
Assumed care VSS. Pt anxious, appropriate with care. Alert and oriented. Making needs known with call light. Up to bsc with one, moderately HULL. Pt on 3.5L NC at rest, requires 4-5L with transfers. Takes pills whole with water. See shift assessment for detailed assessment. Lungs remains coarse throughout, productive, clears with cough. Pt with moderate anxiety - fan blowing in the face calms pt. Will continue to montior, no acute concerns at this time.
[2019-09-22 04:47] LABS: BASOPHILS ABSOLUTE AUTO 0.06 K/mm3 (0.00-0.23); BASOPHILS PERCENT AUTO 0 % (0-2); EOSINOPHILS PERCENT AUTO 0 % (0-6); Hematocrit 32.5 % (33.0-51.0); Hemoglobin 9.5 g/dL (11.5-16.0); IMMATURE GRAN ABSOLUTE AUTO 0.54 K/mm3 (0.00-0.10); IMMATURE GRAN PERCENT AUTO 2 % (0-1); LYMPHOCYTES ABSOLUTE AUTO 0.65 K/mm3 (0.84-5.20); LYMPHOCYTES PERCENT AUTO 2 % (21-46); MONOCYTES ABSOLUTE AUTO 0.63 K/mm3 (0.16-1.47); MONOCYTES PERCENT AUTO 2 % (4-13); Mean Corpuscular HGB 27.3 pg (26.0-34.0); Mean Corpuscular HGB Conc 29.2 g/dL (31.5-36.5); Mean Corpuscular Volume 93 fL (80-100); Mean Platelet Volume 9.7 fL (9.1-12.4); NEUTROPHILS ABSOLUTE AUTO 27.74 K/mm3 (1.96-9.15); NEUTROPHILS PERCENT AUTO 94 % (41-73); Platelet Count 451 K/mm3 (150-400); RDW Coefficient Variation 13.6 % (11.7-14.2); RDW Standard Deviation 46.5 fL (35.1-46.3); Red Blood Cell Count 3.48 M/mm3 (3.80-5.20); White Blood Cell Count 29.62 K/mm3 (4.00-11.30)
[2019-09-22 05:04] LABS: Anion Gap 3 mmol/L (6-16); Blood Urea Nitrogen 28 mg/dL (8-24); Bun/Creatinine Ratio 31.4 (12.0-20.0); CO2, Blood 38 mmol/L (21-32); Calcium, Blood 9.1 mg/dL (8.5-10.1); Chloride, Blood 97 mmol/L (98-108); Creatinine, Blood 0.89 mg/dL (0.40-1.00); Glomerular Filtration Rate >60 (60-); Glucose, Blood 136 mg/dL (70-99); Potassium, Blood 4.2 mmol/L (3.5-5.5); Sodium, Blood 138 mmol/L (136-145)
--- NOTE | 2019-09-22 05:15 | NUR ---
Shift Summary Pt sleeping on and off this shift, states "I don't like to be woken up". Pt explained plan of care and need for care rounding and vital sign monitoring. Pt compliant with cares all night. Calls for bed quesada and voids using bedpan, requires one staff memeber with assistance. Pt tachypneic this shift, remains coarse throughout. Coughs thick grayson sputum. This RN was called regarding gram positive cocci in chains critical blood culture. MD Ahn called and notified of pt's result and current abx. No new orders recieved. bunk assembler aware. VSS, hypotensive at 97/53 at start of shift. BP improving throughout night to 112/53 and 113/58. No tachycardia noted. No changes to oxygen requirement. Normothermic. WBC increased this AM to 29.62. bunk assembler aware. Pt anxious and restless at times this shift. Pt has anxiety and restless leg syndrome medication ordered and given this shift. Pt likes to have warm blankets and a fan running at all times to alleviate anxiety. This pt is able to make needs known with call light. Will continue to montior and care per orders and protocol until day RN assumes care.
--- NOTE | 2019-09-22 07:50 | NUR ---
AM NOTE... ASSUMED CARE OF PT APROX 0700. PT IS A&Ox4 AND SBA TO [place] [facility] [place]. PT WAS ADMITTED FOR SEPSIS PNA, PT WAS ON 3.5L NC AT 100%, PT WAS TITRATED DOWN TO 2L WHICH IS HER BASELINE AND STATS ARE STEADY AT 94-98%. RR IS 24-28 EVEN AND SLIGHLTY LABORED. L/S COARSE WHEEZES HEARD T/O. PT DENIES CHEST PAIN/PRESSURE AT THIS TIME. NO EDEMA IS NOTED ON ASSESSMENT PT'S VS STABLE. SR W/BBB W/OCC PACER SPIKES IN THE 60'S-80'S. CALL LIGHT IN REACH WILL CONTINUE TO MONITOR.
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
--- NOTE | 2019-09-22 18:03 | NUR ---
SHIFT SUMMARY... NO ACUTE NEGATIVE CHANGES NOTED THIS SHIFT. PT'S VS HAVE BEEN STABLE. PT HAS BEEN ON 2-3L O2 NC WITH O2 SATS >92%. PT WORKED WITH PT/OT TODAY. PT HAD SOME EPISODES OF ANXIETY, PT WAS TAUGHT DEEP BREATHING AND CALMING EXERCISES TO USE. CALL LIGHT IN REACH WILL CONTINUE TO MONITOR UNTIL REPORT IS GIVEN TO ONCOMING RN.
[2019-09-23 04:03] LABS: BASOPHILS ABSOLUTE AUTO 0.05 K/mm3 (0.00-0.23); BASOPHILS PERCENT AUTO 0 % (0-2); EOSINOPHILS PERCENT AUTO 0 % (0-6); Hematocrit 33.1 % (33.0-51.0); Hemoglobin 9.9 g/dL (11.5-16.0); IMMATURE GRAN ABSOLUTE AUTO 0.48 K/mm3 (0.00-0.10); IMMATURE GRAN PERCENT AUTO 2 % (0-1); LYMPHOCYTES ABSOLUTE AUTO 0.59 K/mm3 (0.84-5.20); LYMPHOCYTES PERCENT AUTO 2 % (21-46); MONOCYTES ABSOLUTE AUTO 0.56 K/mm3 (0.16-1.47); MONOCYTES PERCENT AUTO 2 % (4-13); Mean Corpuscular HGB 27.8 pg (26.0-34.0); Mean Corpuscular HGB Conc 29.9 g/dL (31.5-36.5); Mean Corpuscular Volume 93 fL (80-100); Mean Platelet Volume 9.8 fL (9.1-12.4); NEUTROPHILS ABSOLUTE AUTO 28.85 K/mm3 (1.96-9.15); NEUTROPHILS PERCENT AUTO 95 % (41-73); Platelet Count 517 K/mm3 (150-400); RDW Coefficient Variation 13.5 % (11.7-14.2); RDW Standard Deviation 46.2 fL (35.1-46.3); Red Blood Cell Count 3.56 M/mm3 (3.80-5.20); White Blood Cell Count 30.53 K/mm3 (4.00-11.30)
[2019-09-23 04:19] LABS: Anion Gap 4 mmol/L (6-16); Blood Urea Nitrogen 45 mg/dL (8-24); CO2, Blood 39 mmol/L (21-32); Calcium, Blood 8.8 mg/dL (8.5-10.1); Chloride, Blood 95 mmol/L (98-108); Creatinine, Blood 0.87 mg/dL (0.40-1.00); Glomerular Filtration Rate >60 (60-); Glucose, Blood 123 mg/dL (70-99); Magnesium, Blood 2.1 mg/dL (1.6-2.4); Potassium, Blood 4.3 mmol/L (3.5-5.5); Sodium, Blood 138 mmol/L (136-145)
--- NOTE | 2019-09-23 05:16 | NUR ---
SHIFT SUMMARY- PT. RESTED ON/OFF T/O THE SHIFT. NO APPARENT DISTRESS NOTED. PT. HAD 6 BEAT RUN OF VT THIS AM, ASYMPTOMATIC, AND VSS. ON 3L OF O2 NC. PT. C/O MARTINEZ LAST NIGHT. MEDICATED WITH TYLENOL PER EMAR, PT. REPORTED GOOD RELIEF. PT. HAS BEEN VOIDING IN BEDPAN T/O THE NIGHT W/O DIFFICULTY. PT. CALLS APPROPRIATELY, DENIES ANY NEEDS AT THIS TIME. CALL LIGHT WITHIN REACH AND SIDE REAILS UP X2. WILL CONT TO MONITOR.
--- NOTE | 2019-09-23 05:44 | NUR ---
PT. HAD RUN OF VTACH. REMAINS ASYMPTOMATIC. CHARGE NURSE MARIA ELENA RN MADE AWARE. WILL CONT TO MONITOR PT.
--- NOTE | 2019-09-23 15:14 | NUR ---
Spiritual care visit conducted. Patient is lying in bed and resting and easily awakens to the sound of her name. Patient tells me that she is doing well and may be moved to medical floor this evening. Patient states that she is tired and would prefer to visit tomorrow. I step out and let patient rest.
--- NOTE | 2019-09-23 17:39 | NUR ---
SHIFT SUMMARY.,.. NO ACUTE NEGATIVE CHANGES NOTED THIS SHIFT. PT HAS BEEN TITRATED BACK TO HER BASELINE O2 USEAGE AT 2L NC. PT TOOK A SHOWER THIS AM AND HAS BEEN GETTING UP IN THE CHAIR FOR MOST MEALS. PT HAS BEEN ALSO GETTING UP AND USING THE BATHROOM/BSC. PT'S VS HAVE BEEN STABLE. PT DENIES CHEST PAIN/PRESSURE N/V OR INCREASED SOB. CALL LIGHT IN REACH WILL CONTINUE TO MONITOR UNTIL REPORT IS GIVEN TO ONCOMING RN.
--- NOTE | 2019-09-23 19:20 | NUR ---
BEDSIDE REPORT FROM VIKASH RN. PT SITTING UP IN BED. C/O LEFT HIP PAIN. REQUESTING CREAM THAT SHE STATES SHE HAD LAST TIME SHE WAS HERE. PT BECOMES TEARFUL AND URGENT IN HER DEMANDS THAT SHE GET HER CREAM. AFTER LOOKING INTO IT A CALL WAS PLACED TO HOSPITALIST FOR T.O. FOR DICLOFENAC CREAM ONLY TO DISCOVER WE DON'T CARRY IT HERE AND PT WAS NOT HERE WHEN SHE REC'D IT. AT THAT POINT HER RESPONS WAS A FLAT "OH, OK" AND THAT WAS THE END OF HER DRAMATICS. ASSESSMENT NOTED. VSS. MED STATUS NO TELE. CALL LIGHT IN REACH.
[2019-09-23] MEDS ORDERED: Voltaren100 GM TOP (20:21)
[2019-09-24 03:46] LABS: BASOPHILS ABSOLUTE AUTO 0.05 K/mm3 (0.00-0.23); BASOPHILS PERCENT AUTO 0 % (0-2); EOSINOPHILS PERCENT AUTO 0 % (0-6); IMMATURE GRAN ABSOLUTE AUTO 0.38 K/mm3 (0.00-0.10); IMMATURE GRAN PERCENT AUTO 2 % (0-1); LYMPHOCYTES ABSOLUTE AUTO 0.52 K/mm3 (0.84-5.20); LYMPHOCYTES PERCENT AUTO 2 % (21-46); MONOCYTES ABSOLUTE AUTO 0.64 K/mm3 (0.16-1.47); MONOCYTES PERCENT AUTO 3 % (4-13); Mean Corpuscular HGB 27.5 pg (26.0-34.0); Mean Corpuscular HGB Conc 30.3 g/dL (31.5-36.5); Mean Corpuscular Volume 91 fL (80-100); Mean Platelet Volume 9.9 fL (9.1-12.4); NEUTROPHILS ABSOLUTE AUTO 20.95 K/mm3 (1.96-9.15); NEUTROPHILS PERCENT AUTO 93 % (41-73); Platelet Count 495 K/mm3 (150-400); RDW Coefficient Variation 13.8 % (11.7-14.2); RDW Standard Deviation 45.8 fL (35.1-46.3); Red Blood Cell Count 3.64 M/mm3 (3.80-5.20); White Blood Cell Count 22.54 K/mm3 (4.00-11.30)
[2019-09-24 04:04] LABS: Anion Gap 6 mmol/L (6-16); Blood Urea Nitrogen 46 mg/dL (8-24); Bun/Creatinine Ratio 48.3 (12.0-20.0); CO2, Blood 37 mmol/L (21-32); Calcium, Blood 8.6 mg/dL (8.5-10.1); Chloride, Blood 95 mmol/L (98-108); Creatinine, Blood 0.95 mg/dL (0.40-1.00); Glomerular Filtration Rate >60 (60-); Glucose, Blood 189 mg/dL (70-99); Sodium, Blood 138 mmol/L (136-145)
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
--- NOTE | 2019-09-24 08:35 | NUR ---
AM NOTE... ASSUMED CARE OF PT APROX 0700. PT IS A&Ox4 PT IS ANXIOUS AND RUDE TO STAFF AT TIMES. PT WAS ADMITTED FOR SEPSIS PNA. PT IS ON 2L NC WHICH IS PT'S BASELINE. VS STABLE AT THIS TIME. L/S COARSE T/O. BT PRESENT AND NORMOACTIVE. ABD SOFT AND NONTENDER TO PALP. CALL LITGHT IN REACH WILL CONTINUE TO MONTITOR.
[2019-09-24] MEDS ORDERED: ACET325 PO (09:42)
[2019-09-24] MEDS ORDERED: LEVO750 PO (10:02)
[2019-09-24] MEDS ORDERED: Prednisone10 MG PO (10:03)
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
== END 2019-09-24 11:38 | disposition home health service (06) | DRG 871 ==
LOC: ER 20:35 → PCU 22:48 → ER 23:53 → PCU 23:57
PROVIDERS: Emergency Medicine; Internal Medicine; ADMIT Family Medicine
DX: A40.9 Streptococcal sepsis, unspecified (principal); J96.21 Acute and chronic respiratory failure with hypoxia; J18.9 Pneumonia, unspecified organism; J44.0 Chronic obstructive pulmonary disease with (acute) lower respiratory infection; J44.1 Chronic obstructive pulmonary disease with (acute) exacerbation; I50.42 Chronic combined systolic (congestive) and diastolic (congestive) heart failure; D61.818 Other pancytopenia; R65.20 Severe sepsis without septic shock; I25.10 Atherosclerotic heart disease of native coronary artery without angina pectoris; I11.0 Hypertensive heart disease with heart failure; F32.9 Major depressive disorder, single episode, unspecified; D50.9 Iron deficiency anemia, unspecified; I48.0 Paroxysmal atrial fibrillation; Z74.09 Other reduced mobility; F41.9 Anxiety disorder, unspecified; F43.10 Post-traumatic stress disorder, unspecified; K21.9 Gastro-esophageal reflux disease without esophagitis; Z66 Do not resuscitate; E78.5 Hyperlipidemia, unspecified; Z95.0 Presence of cardiac pacemaker; Z79.02 Long term (current) use of antithrombotics/antiplatelets; Z79.899 Other long term (current) drug therapy; Z95.5 Presence of coronary angioplasty implant and graft; Z87.891 Personal history of nicotine dependence
CPT/HCPCS: 36415; 36600; 71045; 71046; 80048; 80053; 82803; 83605; 83735; 83880; 84484; 85025; 87040; 87070; 87205; 93005; 93010; 94640; 94644; 94760; 96365; 96375; 97110; 97161; 97165; 97530; 97535; 99285-25; A9270; J0696; J1100; J1956; J2920; J2930; J7050

== ENCOUNTER 2019-12-15 12:16 | Inpatient (IN) | payer OTHER ==
[~2019-12-15] VITALS: Ht 165.1 cm; Wt 60.5 kg
[~2019-12-15 12:16] MED LIST changes: +ALKA-SELTZER P1 EAC4 PO; +Betamethasone V15 G1; +MYRBETRIQ50 MG PO; +PROAIR RESPICL90 MCG IH
[2019-12-15 13:19] LABS: BASOPHILS ABSOLUTE AUTO 0.06 K/mm3 (0.00-0.23); BASOPHILS PERCENT AUTO 1 % (0-2); EOSINOPHILS ABSOLUTE AUTO 0.29 K/mm3 (0.00-0.68); EOSINOPHILS PERCENT AUTO 3 % (0-6); Hematocrit 40.6 % (33.0-51.0); Hemoglobin 11.5 g/dL (11.5-16.0); IMMATURE GRAN ABSOLUTE AUTO 0.04 K/mm3 (0.00-0.10); IMMATURE GRAN PERCENT AUTO 0 % (0-1); LYMPHOCYTES ABSOLUTE AUTO 1.27 K/mm3 (0.84-5.20); LYMPHOCYTES PERCENT AUTO 12 % (21-46); MONOCYTES ABSOLUTE AUTO 1.05 K/mm3 (0.16-1.47); MONOCYTES PERCENT AUTO 10 % (4-13); Mean Corpuscular HGB 24.8 pg (26.0-34.0); Mean Corpuscular HGB Conc 28.3 g/dL (31.5-36.5); Mean Corpuscular Volume 88 fL (80-100); Mean Platelet Volume 10.6 fL (9.1-12.4); NEUTROPHILS ABSOLUTE AUTO 7.71 K/mm3 (1.96-9.15); NEUTROPHILS PERCENT AUTO 74 % (41-73); Platelet Count 355 K/mm3 (150-400); RDW Coefficient Variation 14.5 % (11.7-14.2); RDW Standard Deviation 46.8 fL (35.1-46.3); Red Blood Cell Count 4.64 M/mm3 (3.80-5.20); White Blood Cell Count 10.42 K/mm3 (4.00-11.30)
[2019-12-15 13:45] LABS: Alanine Aminotransfer (ALT/SGP 19 U/L (12-78); Albumin, Blood 3.4 g/dL (3.4-5.0); Albumin/Globulin Ratio 0.9 (0.8-1.8); Alk Phos 203 U/L (50-136); Anion Gap 1 mmol/L (6-16); Aspartate Aminotrans (AST/SGOT 13 U/L (12-37); Bilirubin, Total 0.8 mg/dL (0.1-1.0); Blood Urea Nitrogen 17 mg/dL (8-24); Bun/Creatinine Ratio 21.7 (12.0-20.0); CO2, Blood 39 mmol/L (21-32); Calcium, Blood 9.4 mg/dL (8.5-10.1); Chloride, Blood 100 mmol/L (98-108); Creatinine, Blood 0.78 mg/dL (0.40-1.00); Globulin, Blood 3.6 g/dL (2.2-4.0); Glomerular Filtration Rate >60 (60-); Glucose, Blood 80 mg/dL (70-99); Sodium, Blood 140 mmol/L (136-145); Troponin I <0.015 ng/mL (0.000-0.040)
[2019-12-15] MEDS ORDERED: Clonazepam0.25 MG PO (19:03)
[2019-12-15] MEDS ORDERED: DULERA 200 MCG/13 GM INH (19:04)
[2019-12-15] MEDS ORDERED: FAMO10 PO (19:17)
--- NOTE | 2019-12-16 04:11 | NUR ---
SHIFT SUMMARY PT NEW ADMIT TO FLOOR LAST NIGHT FOR LLL PNEUMONIA. AOX4. VSS. DYSPNIC, TACHYPNIC & LABOURED BREATHING W/VERY LITTLE ACTIVITY. ON 2.5L O2 W/SPO2 @94%. LUNG SOUNDS WERE COURSE T/O. STATES "COOL AIR" FROM THE FAN HELPS HER BREATHING. SOLUMEDROL & BREATHING TX GIVEN PER ORDERS. THIS AM PT STATES HER BREATHING IS BETTER THEN LAST NIGHT. DENIES PAIN OR N/V. 1 ASSIST TO BSC SINCE PT GETS DYSPNIC DURING TRANSFERS. CALL LIGHT IN REACH. TM.
[2019-12-16 04:53] LABS: BASOPHILS ABSOLUTE AUTO 0.02 K/mm3 (0.00-0.23); BASOPHILS PERCENT AUTO 0 % (0-2); EOSINOPHILS PERCENT AUTO 0 % (0-6); Hematocrit 37.6 % (33.0-51.0); IMMATURE GRAN ABSOLUTE AUTO 0.04 K/mm3 (0.00-0.10); IMMATURE GRAN PERCENT AUTO 1 % (0-1); LYMPHOCYTES ABSOLUTE AUTO 0.39 K/mm3 (0.84-5.20); LYMPHOCYTES PERCENT AUTO 6 % (21-46); MONOCYTES ABSOLUTE AUTO 0.09 K/mm3 (0.16-1.47); MONOCYTES PERCENT AUTO 1 % (4-13); Mean Corpuscular HGB 25.1 pg (26.0-34.0); Mean Corpuscular HGB Conc 29.3 g/dL (31.5-36.5); Mean Corpuscular Volume 86 fL (80-100); Mean Platelet Volume 10.6 fL (9.1-12.4); NEUTROPHILS ABSOLUTE AUTO 6.49 K/mm3 (1.96-9.15); NEUTROPHILS PERCENT AUTO 92 % (41-73); Platelet Count 324 K/mm3 (150-400); RDW Coefficient Variation 14.6 % (11.7-14.2); RDW Standard Deviation 45.2 fL (35.1-46.3); Red Blood Cell Count 4.39 M/mm3 (3.80-5.20); White Blood Cell Count 7.03 K/mm3 (4.00-11.30)
[2019-12-16 05:16] LABS: Anion Gap 5 mmol/L (6-16); Blood Urea Nitrogen 24 mg/dL (8-24); Bun/Creatinine Ratio 28.2 (12.0-20.0); CO2, Blood 34 mmol/L (21-32); Chloride, Blood 98 mmol/L (98-108); Creatinine, Blood 0.85 mg/dL (0.40-1.00); Glomerular Filtration Rate >60 (60-); Glucose, Blood 191 mg/dL (70-99); Potassium, Blood 4.7 mmol/L (3.5-5.5); Sodium, Blood 137 mmol/L (136-145)
[2019-12-16] MEDS ORDERED: IBUP600 PO (11:22)
--- NOTE | 2019-12-16 17:44 | NUR ---
SHIFT SUMMARY PATIENT IS DOING WELL TODAY. NO ACUTE ISSUES. BREATHING TREATMENTS PER EMAR. NO ACUTE CHANGES.
[2019-12-16] MEDS ORDERED: SINEMET 25-1001 EACH PO (20:06)
[2019-12-16] MEDS ORDERED: Toviaz8 MG PO (20:10)
[2019-12-16] MEDS ORDERED: PANT40 PO (20:13)
[2019-12-16] MEDS ORDERED: BUDE.25 INH (20:13)
[2019-12-16] MEDS ORDERED: Voltaren100 GM TOP (20:21)
[2019-12-16] MEDS ORDERED: ANORO ELLIPTA1 EACH INH (20:25)
--- NOTE | 2019-12-17 04:56 | NUR ---
SHIFT SUMMARY PT HAS HAD NO ACUTE CHANGES THIS SHIFT, MEDICATED 1X FOR HEADACHE, NO OTHER C/0 ANY KIND, PT SLEPT T/O SHIFT, SLEEPING AT THIS TIME, CALL LIGHT IN REACH, WILL CONT TO MONITOR UNTIL REPORT GIVEN TO DAY RN.
--- NOTE | 2019-12-17 19:16 | NUR ---
Shift Summary A/Ox3, pleasant and cooperative. Patient has been on 2-3 liters of O2 and saturating above 90%. Heart rhythm is paced, pacer info documented in shift assessment. Medicated for pain x 1 per emar with good results. Calls appropriately for needs. No other changes.
--- NOTE | 2019-12-18 05:32 | NUR ---
SHIFT SUMMARY PT HAS HAD NO ACUTE CHANGES THIS SHIFT, MEDICTED 1X FOR L HIP & LUE PAIN, NO OTHER C/O ANY KIND, PT AWAKE AND WATCHING TV AT THIS TIME, CALL LIGHT IN REACH, WILL CONT TO MONITOR UNTIL REPORT GIVEN TO DAY RN.
[2019-12-18] MEDS ORDERED: LEVFLO500 PO (17:13)
[2019-12-18] MEDS ORDERED: DOCU100 PO (17:13)
[2019-12-18] MEDS ORDERED: FAMO20 PO (17:14)
[2019-12-18] MEDS ORDERED: FLUTICASONE-SA1 EAC2 INH (17:14)
[2019-12-18] MEDS ORDERED: SEEBRI NEOHA15.6 MC1 INH (17:15)
[2019-12-18] MEDS ORDERED: PRED10 PO (17:18)
--- NOTE | 2019-12-18 17:55 | NUR ---
Discharge Summary A/Ox4, patient is being discharged to home without home health as she had received max benefits and is no longer qualified for . Dr. Siegel is aware, Caprice to call [facility] case management director to f/u with patient on Saturday for further assistance at home. Patient has been offered other alternatives for continued strengthening and care; however, patient refuses living at any other care facilities. See HH and CM notes. Per Dr. Siegel, patient has been enrolled in high-risk readmission program. Discharge paperwork and education reviewed, patient had no questions but also anxious to be discharge. IV removed. Personal belongings sent home along with her home O2 tank. Office of PCP will call patient to set up appointment as they are in the middle of rearranging physician hours. Escorted by MACHINE OPERATOR PACKAGING via w/c, transported by caregiver.
== END 2019-12-18 17:52 | disposition home health service (06) | DRG 193 ==
LOC: ER 12:16 → MEDS 20:34
PROVIDERS: Emergency Medicine; ADMIT Internal Medicine
DX: J18.9 Pneumonia, unspecified organism (principal); J96.21 Acute and chronic respiratory failure with hypoxia; J96.22 Acute and chronic respiratory failure with hypercapnia; J44.0 Chronic obstructive pulmonary disease with (acute) lower respiratory infection; J44.1 Chronic obstructive pulmonary disease with (acute) exacerbation; I50.42 Chronic combined systolic (congestive) and diastolic (congestive) heart failure; I48.0 Paroxysmal atrial fibrillation; I25.10 Atherosclerotic heart disease of native coronary artery without angina pectoris; I11.0 Hypertensive heart disease with heart failure; E78.5 Hyperlipidemia, unspecified; F43.10 Post-traumatic stress disorder, unspecified; F41.9 Anxiety disorder, unspecified; D50.9 Iron deficiency anemia, unspecified; Z66 Do not resuscitate; F32.9 Major depressive disorder, single episode, unspecified; Z74.09 Other reduced mobility; Z99.81 Dependence on supplemental oxygen; Z79.02 Long term (current) use of antithrombotics/antiplatelets; Z79.52 Long term (current) use of systemic steroids; Z79.899 Other long term (current) drug therapy; I25.2 Old myocardial infarction; Z95.5 Presence of coronary angioplasty implant and graft; Z87.891 Personal history of nicotine dependence
CPT/HCPCS: 36415; 71045; 71260; 80048; 80053; 83880; 84484; 85025; 85379; 93005; 93010; 94640; 94644; 94760; 94762; 96365-59; 96367; 96375-59; 97110; 97162; 97530; 99285-25; A9270; A9270-GY; J0456; J0696; J2930; J7050; Q9967; U0003

== ENCOUNTER 2020-01-11 21:26 | Inpatient (IN) | payer OTHER ==
[~2020-01-11] VITALS: Ht 154.9 cm; Wt 58.2 kg
[~2020-01-11 21:26] MED LIST changes: +ANORO ELLIPTA1 EACH INH; +BUDE.25 INH; +Clonazepam0.25 MG PO; +FAMO10 PO; +FLUTICASONE-SA1 EAC2 INH; +SEEBRI NEOHA15.6 MC1 INH
[2020-01-11 21:56] LABS: BASOPHILS ABSOLUTE AUTO 0.07 K/mm3 (0.00-0.23); BASOPHILS PERCENT AUTO 1 % (0-2); EOSINOPHILS ABSOLUTE AUTO 0.56 K/mm3 (0.00-0.68); EOSINOPHILS PERCENT AUTO 6 % (0-6); Hematocrit 30.3 % (33.0-51.0); Hemoglobin 8.7 g/dL (11.5-16.0); IMMATURE GRAN ABSOLUTE AUTO 0.11 K/mm3 (0.00-0.10); IMMATURE GRAN PERCENT AUTO 1 % (0-1); LYMPHOCYTES ABSOLUTE AUTO 1.47 K/mm3 (0.84-5.20); LYMPHOCYTES PERCENT AUTO 14 % (21-46); MONOCYTES ABSOLUTE AUTO 0.96 K/mm3 (0.16-1.47); MONOCYTES PERCENT AUTO 9 % (4-13); Mean Corpuscular HGB 24.9 pg (26.0-34.0); Mean Corpuscular HGB Conc 28.7 g/dL (31.5-36.5); Mean Corpuscular Volume 87 fL (80-100); Mean Platelet Volume 10.3 fL (9.1-12.4); NEUTROPHILS PERCENT AUTO 69 % (41-73); Platelet Count 309 K/mm3 (150-400); RDW Coefficient Variation 16.9 % (11.7-14.2); RDW Standard Deviation 51.8 fL (35.1-46.3); White Blood Cell Count 10.27 K/mm3 (4.00-11.30)
[2020-01-11 22:12] LABS: Albumin, Blood 3.5 g/dL (3.4-5.0); Albumin/Globulin Ratio 1.2 (0.8-1.8); Bilirubin, Total 0.5 mg/dL (0.1-1.0); Bun/Creatinine Ratio 31.5 (12.0-20.0); Calcium, Blood 8.7 mg/dL (8.5-10.1); Creatinine, Blood 1.27 mg/dL (0.40-1.00); Potassium, Blood 4.9 mmol/L (3.5-5.5); Total Protein, Blood 6.5 g/dL (6.4-8.2)
[2020-01-11 22:57] LABS: Source, Urine Clean Catch
[2020-01-11 23:00] LABS: Bilirubin, Urine Neg (Neg); Blood, Urine 2+ (Neg); Glucose Qualitative, Urine Neg (Neg); Ketones, Urine Neg (Neg); Leukocyte Esterase, Urine Neg (Neg); Nitrite, Urine Neg (Neg); Protein, Urine Neg (Neg); Urobilinogen, Urine NORM (Normal)
[2020-01-11 23:02] LABS: Appearance, Urine Clear (Clear); Color, Urine Yellow (P-Yellow)
[2020-01-11 23:06] LABS: Bacteria Mod /hpf; Red Blood Cells, Urine 0-2 /hpf (0-2); Squamous Epithelial Cells Not Seen /hpf (Few); White Blood Cells, Urine 0-2 /hpf (0-5); Yeast/Fungi Urine Not Seen /hpf
[2020-01-12] MEDS ORDERED: MYRBETRIQ50 MG PO (00:52)
[2020-01-12] MEDS ORDERED: Aspir 8181 MG PO (01:20)
[2020-01-12] MEDS ORDERED: LORA.5 PO (01:26)
[2020-01-12] MEDS ORDERED: Colace100 MG PO (01:28)
[2020-01-12] MEDS ORDERED: TIOT18 INH (01:36)
[2020-01-12] MEDS ORDERED: IBUP600 PO (01:38)
[2020-01-12] MEDS ORDERED: ADVAIR INH (01:41)
[2020-01-12] MEDS ORDERED: NYST100000 PO (01:43)
[2020-01-12] MEDS ORDERED: PROAIR DIGIHAL90 MCG INH (01:44)
--- NOTE | 2020-01-12 01:58 | NUR ---
NEW ADMIT TO FLOOR ARRIVED TO FLOOR AROUND 0030 BY STRETCHER. RECEIVED REPORT FROM ER NURSE BRENDA. PT DENIES N/V @THIS TIME, REPORTED ZOFRAN THAT WAS GIVEN IN ER HELPED. NO BLOODY STOOL NOTED @THIS TIME. ACTIVE BT. PT ASKING FOR WATER, SINCE THERE IS AN ORDER FOR NPO, GAVE SMALL AMOUNT ICE CHIPS. VERY DYSPNIC W/MINIMAL ACTIVITY. LUNGS SOUND WHEEZY T/O. REPORTS 7/10 PAIN IN L HIP & STATES SHE HAS BEEN TAKING IBUPROPHEN TO HELP THE PAIN @HOME. DURING ASSESSMENT PT REPORTS SHE IS A DNR & DOES NOT WANT CPR PERFORMED & THAT THE HOSPITAL HAS A COPY OF HER POLST ON FILE. I WAS ABLE TO PRINT A COPY OFF FOR HER CHART.
[2020-01-12 04:35] LABS: BASOPHILS ABSOLUTE AUTO 0.05 K/mm3 (0.00-0.23); BASOPHILS PERCENT AUTO 1 % (0-2); EOSINOPHILS ABSOLUTE AUTO 0.55 K/mm3 (0.00-0.68); EOSINOPHILS PERCENT AUTO 7 % (0-6); Hematocrit 25.7 % (33.0-51.0); Hemoglobin 7.3 g/dL (11.5-16.0); IMMATURE GRAN ABSOLUTE AUTO 0.08 K/mm3 (0.00-0.10); IMMATURE GRAN PERCENT AUTO 1 % (0-1); LYMPHOCYTES ABSOLUTE AUTO 1.21 K/mm3 (0.84-5.20); LYMPHOCYTES PERCENT AUTO 15 % (21-46); MONOCYTES ABSOLUTE AUTO 0.85 K/mm3 (0.16-1.47); MONOCYTES PERCENT AUTO 10 % (4-13); Mean Corpuscular HGB Conc 28.4 g/dL (31.5-36.5); Mean Corpuscular Volume 88 fL (80-100); Mean Platelet Volume 10.3 fL (9.1-12.4); NEUTROPHILS ABSOLUTE AUTO 5.55 K/mm3 (1.96-9.15); NEUTROPHILS PERCENT AUTO 67 % (41-73); Platelet Count 249 K/mm3 (150-400); RDW Coefficient Variation 17.1 % (11.7-14.2); RDW Standard Deviation 53.6 fL (35.1-46.3); Red Blood Cell Count 2.92 M/mm3 (3.80-5.20); White Blood Cell Count 8.29 K/mm3 (4.00-11.30)
[2020-01-12 04:48] LABS: International Normalized Ratio 1.01; Prothrombin Time Results 10.8 Sec (9.7-11.5)
[2020-01-12 04:56] LABS: Albumin, Blood 2.8 g/dL (3.4-5.0); Albumin/Globulin Ratio 1.2 (0.8-1.8); Bilirubin, Total 0.5 mg/dL (0.1-1.0); Bun/Creatinine Ratio 31.3 (12.0-20.0); Creatinine, Blood 1.15 mg/dL (0.40-1.00); Globulin, Blood 2.4 g/dL (2.2-4.0); Total Protein, Blood 5.2 g/dL (6.4-8.2)
--- NOTE | 2020-01-12 06:20 | NUR ---
SHIFT SUMMARY AOX4. VERY FATIGUED/TIRED, FALLS ASLEEP DURING CONVERATIONS. EASILY AWAKENED & ANSWERS QUESTIONS APPROPRIATE. DENIES N/V & HASN'T HAD A BM SINCE ADMITTING TO FLOOR. NO BLEEDING NOTED. TOLERATING CLEAR LIQUIDS. VSS. TELE RUNNING 100% PACED W/HR 80. REPORTED 7/10 L HIP PAIN & WAS MEDICATED 1X W/25MCG FENTANYL & PT FELL ASLEEP DURING ADMINISTERING. REPORTS DYSPNEA, ON 2L O2 w/SPO2 @96%, STATES 2L O2 IS BASELINE. LUNGS HAVE EXPIRATORY WHEEZES T/O, E/U RESPIRATIONS. WITH AM LABS I NOTED HGB DROPPED TO 7.3 FROM 8.7@ADMIT, NOTIFIED DR ROBERTSON & HE ORDERED 1 BAG PRBC. CALL LIGHT IN REACH. WCTM.
[2020-01-12 10:23] LABS: Hemoglobin 8.5 g/dL (11.5-16.0)
[2020-01-12 16:34] LABS: Hematocrit 29.6 % (33.0-51.0); Hemoglobin 8.7 g/dL (11.5-16.0)
--- NOTE | 2020-01-12 18:39 | NUR ---
NO ACUTE ISSUES NOTED AT THIS TIME. PATIENT HAS PAIN BUT IT IS RELEIVED WITH PRN MEDICATIONS. NO BLOOD OR BOWEL MOVEMENTS NOTED THIS SHIFT. NO OTHER ISSUES NOTED AT THIS TIME WILL CONTINUE TO MONITOR FOR CHANGES.
--- NOTE | 2020-01-12 20:37 | NUR ---
RATE/RHYTHM NOTIFIED @2029 BY PCU ADJUNCT LATIN PROFESSOR THAT PT HAD A 25 BEAT RUN V. TACH @2020 & HAD CONVERTED BACK TO NSR W/HR 67 BY 2029. PT WAS RECIEVING BREATHING TX @THIS TIME. VS CHECKED & STABLE @THIS TIME. PT HAS NO COMPLAINTS & IS ASYMPTOMATIC. NOTIFIED HOSPITALIST LORNA WILLAMS. BILLIE PT.
[2020-01-12 22:28] LABS: Hematocrit 28.4 % (33.0-51.0); Hemoglobin 8.3 g/dL (11.5-16.0)
--- NOTE | 2020-01-13 06:44 | NUR ---
SHIFT SUMMARY AOX4. VSS. HAS SLEPT SOUNDLY T/O NIGHT. DENIES DYSPNEA, N/V. NO DIARRHEA OR BLEEDING NOTED. TELE HAS BEEN RUNNING NSR W/BBB HR 68, EXCEPT FOR 1X SHE HAD A RUN OF [employer], READ PREVIOUS NOTE. REPORTED PAIN IN L HIP/SHOULDER WAS MEDICATED 1X W/FENTANYL & STATED RELIEF. SPO2 >90% ON 2L WHICH IS BASELINE. CALL LIGHT IN REACH.
[2020-01-13 09:09] LABS: Hematocrit 31.5 % (33.0-51.0); Hemoglobin 9.3 g/dL (11.5-16.0)
[2020-01-13 09:22] LABS: Albumin, Blood 2.9 g/dL (3.4-5.0); Anion Gap 4 mmol/L (6-16); Blood Urea Nitrogen 26 mg/dL (8-24); CO2, Blood 33 mmol/L (21-32); Chloride, Blood 102 mmol/L (98-108); Creatinine, Blood 0.87 mg/dL (0.40-1.00); Glomerular Filtration Rate >60 (60-); Glucose, Blood 105 mg/dL (70-99); Potassium, Blood 4.3 mmol/L (3.5-5.5); Sodium, Blood 139 mmol/L (136-145)
--- NOTE | 2020-01-13 14:16 | NUR ---
01/13/20 1416 HERMINIA HUGHES History, Chart, Medications and Allergies reviewed before start of procedure. 3-LEAD EKG REVIEWED WITH PHYSICIAN PRIOR TO START OF PROCEDURE. O2 VIA N/C INTACT THROUGHOUT SEDATION/PROCEDURE. MONITOR INTACT WITH CONTINUOUS PULSE OXIMETRY AND INTERMITTENT BP. MAC WITH DR. VARMA.
--- NOTE | 2020-01-13 18:54 | NUR ---
SHIFT SUMMARY PT OUT TO ENDOSCOPY THIS AFTERNOON WITH DR. HERNANDEZ IN TO SEE PT AFTERWARD. STARTED LOVENOX AND PLACED A LIDODERM PATCH TO L HIP. PT REPORTED PAIN IMPROVED. UP TO BSC WITH 1 PERSON SBA.
--- NOTE | 2020-01-14 02:54 | NUR ---
MANAGER PORT SUMMARY Patient unable to produce stool overnight. A&OX4, very slight epistaxis around bedtime. resolved on it's own. Humidity added to nasal cannula. APAP given once also at bedtime for chronic left hip pain with good result.
--- NOTE | 2020-01-14 10:17 | NUR ---
PANTS CHANGE WENT TO GO TAKE ORTHOSTATICS ON PT REQUESTED BY DR. MILLER, NOTICED PT WITH SOILED PANTS, BUT PT REFUSED A CHANGE OR CLEAN UP. STATED HE WOULD WASH THEM AT HOME.
[2020-01-14] MEDS ORDERED: Advair Hfa 230-12 GM INH (11:49)
[2020-01-14] MEDS ORDERED: LIDOCAINE PAIN1 EACH TOP (12:16)
--- NOTE | 2020-01-14 13:15 | NUR ---
DISCHARGE INSTRUCTIONS COMPLETED AND DISCUSSED WITH PT EXPRESSING UNDERSTANDING. SCRIPTS FAXED TO [facility]. TRANSFERRED SELF TO W/C. TO [facility] WITH DAUGHTER HERE TO PICK HER UP.
== END 2020-01-14 12:59 | disposition home or self-care (01) | DRG 378 ==
LOC: ER 21:26 → MEDS 21:27 → ER 01-12 00:24 → MEDS 01-12 00:37 → ER 01-12 00:37 → MEDS 01-12 00:37
PROVIDERS: Emergency Medicine; Internal Medicine; Internal Medicine Gastroenterology; ADMIT Internal Medicine
PROC: 0DJ08ZZ Inspection of Upper Intestinal Tract, Via Natural or Artificial Opening Endoscopic (ICD-10-PCS; principal; 2020-01-13 12:00)
DX: K57.31 Diverticulosis of large intestine without perforation or abscess with bleeding (principal); I50.42 Chronic combined systolic (congestive) and diastolic (congestive) heart failure; D62 Acute posthemorrhagic anemia; K22.10 Ulcer of esophagus without bleeding; Z99.81 Dependence on supplemental oxygen; I25.10 Atherosclerotic heart disease of native coronary artery without angina pectoris; J44.9 Chronic obstructive pulmonary disease, unspecified; I48.0 Paroxysmal atrial fibrillation; E78.5 Hyperlipidemia, unspecified; F43.10 Post-traumatic stress disorder, unspecified; I27.20 Pulmonary hypertension, unspecified; G25.81 Restless legs syndrome; I08.1 Rheumatic disorders of both mitral and tricuspid valves; Z95.0 Presence of cardiac pacemaker; Z66 Do not resuscitate; Z79.02 Long term (current) use of antithrombotics/antiplatelets; F41.9 Anxiety disorder, unspecified
CPT/HCPCS: 36415; 71045; 74176; 78278; 80053; 80069; 81001; 83690; 83735; 85014; 85018; 85025; 85610; 86850; 86900; 86901; 86923; 87086; 93005; 93010; 94640; 94760; 96361; 96374; 96375; 96376; 97110; 97162; 97166; 97535; 99285-25; A9270; A9560; C9113; G0378; J1650; J2405; J2704; J3010; J7030; J7050; J7120; P9016

== ENCOUNTER 2020-01-23 20:04 | Emergency (ER) | payer OTHER ==
[~2020-01-23] VITALS: Ht 154.9 cm; Wt 55.8 kg
[~2020-01-23 20:04] MED LIST changes: +ADVAIR HFA 230-28 GM INH; +ADVAIR INH; +Colace100 MG PO; +IPRAT-ALBUT 0.5-3 ML NEB; +LIDOCAINE PAIN1 EACH TOP; +LORA.5 PO; +NYSTATIN100000 UN1 SS; +SPIRIVA RESPIMAT4 G3 INH
[2020-01-23 20:26] LABS: BASOPHILS ABSOLUTE AUTO 0.07 K/mm3 (0.00-0.23); BASOPHILS PERCENT AUTO 1 % (0-2); EOSINOPHILS ABSOLUTE AUTO 0.01 K/mm3 (0.00-0.68); EOSINOPHILS PERCENT AUTO 0 % (0-6); Hematocrit 32.5 % (33.0-51.0); Hemoglobin 8.9 g/dL (11.5-16.0); IMMATURE GRAN ABSOLUTE AUTO 0.12 K/mm3 (0.00-0.10); IMMATURE GRAN PERCENT AUTO 1 % (0-1); LYMPHOCYTES ABSOLUTE AUTO 0.87 K/mm3 (0.84-5.20); LYMPHOCYTES PERCENT AUTO 9 % (21-46); MONOCYTES ABSOLUTE AUTO 0.96 K/mm3 (0.16-1.47); MONOCYTES PERCENT AUTO 10 % (4-13); Mean Corpuscular HGB 25.7 pg (26.0-34.0); Mean Corpuscular HGB Conc 27.4 g/dL (31.5-36.5); Mean Platelet Volume 10.7 fL (9.1-12.4); NEUTROPHILS ABSOLUTE AUTO 7.68 K/mm3 (1.96-9.15); NEUTROPHILS PERCENT AUTO 79 % (41-73); Platelet Count 307 K/mm3 (150-400); RDW Coefficient Variation 17.2 % (11.7-14.2); RDW Standard Deviation 59.4 fL (35.1-46.3); Red Blood Cell Count 3.46 M/mm3 (3.80-5.20); White Blood Cell Count 9.71 K/mm3 (4.00-11.30)
[2020-01-23 20:27] LABS: Mean Corpuscular Volume 94 fL (80-100)
[2020-01-23 20:46] LABS: Alanine Aminotransfer (ALT/SGP 25 U/L (12-78); Albumin, Blood 2.9 g/dL (3.4-5.0); Alk Phos 149 U/L (50-136); Anion Gap 0 mmol/L (6-16); Aspartate Aminotrans (AST/SGOT 19 U/L (12-37); Bilirubin, Total 0.4 mg/dL (0.1-1.0); Blood Urea Nitrogen 18 mg/dL (8-24); Bun/Creatinine Ratio 28.6 (12.0-20.0); CO2, Blood 32 mmol/L (21-32); Calcium, Blood 7.7 mg/dL (8.5-10.1); Chloride, Blood 113 mmol/L (98-108); Creatinine, Blood 0.63 mg/dL (0.40-1.00); Glomerular Filtration Rate >60 (60-); Glucose, Blood 94 mg/dL (70-99); Potassium, Blood 4.8 mmol/L (3.5-5.5); Sodium, Blood 145 mmol/L (136-145); Total Protein, Blood 5.9 g/dL (6.4-8.2); Troponin I <0.015 ng/mL (0.000-0.040)
[2020-01-23] MEDS ORDERED: Lasix40 MG PO (22:18)
[2020-01-23] MEDS ORDERED: Prednisone20 MG PO (22:23)
[2020-01-24] MEDS ORDERED: ANORO ELLIPTA1 EAC1 INH (16:17)
[2020-01-24] MEDS ORDERED: VITAMIN D PO (20:28)
[2020-01-24] MEDS ORDERED: IBUP600 PO (20:29)
[2020-01-24] MEDS ORDERED: CLOT10 MT (20:30)
[2020-01-24] MEDS ORDERED: KETO15TC TOP (20:30)
[2020-01-24] MEDS ORDERED: Voltaren100 GM TOP (20:31)
[2020-01-24] MEDS ORDERED: Betamethasone V15 GM TOP (20:34)
== END 2020-01-23 23:31 | disposition home or self-care (01) ==
LOC: ER 20:04
PROVIDERS: Physician Assistant
DX: J44.1 Chronic obstructive pulmonary disease with (acute) exacerbation (principal); I50.42 Chronic combined systolic (congestive) and diastolic (congestive) heart failure; Z88.1 Allergy status to other antibiotic agents; Z79.899 Other long term (current) drug therapy; I25.10 Atherosclerotic heart disease of native coronary artery without angina pectoris; I48.0 Paroxysmal atrial fibrillation; E78.5 Hyperlipidemia, unspecified; F41.9 Anxiety disorder, unspecified; F43.10 Post-traumatic stress disorder, unspecified; F32.9 Major depressive disorder, single episode, unspecified; I27.20 Pulmonary hypertension, unspecified; Z87.891 Personal history of nicotine dependence
CPT/HCPCS: 71045; 80053; 83880; 84484; 85025; 93005; 93010; 96365; 96375; 99285-25; J1940; J2930; J3475

== ENCOUNTER 2020-01-24 11:47 | Inpatient (IN) | payer OTHER ==
[~2020-01-24] VITALS: Ht 162.6 cm; Wt 61.9 kg
[~2020-01-24 11:47] MED LIST changes: +Lasix40 MG PO
[2020-01-24 12:30] LABS: BASOPHILS ABSOLUTE AUTO 0.03 K/mm3 (0.00-0.23); BASOPHILS PERCENT AUTO 0 % (0-2); EOSINOPHILS PERCENT AUTO 0 % (0-6); Hematocrit 31.6 % (33.0-51.0); Hemoglobin 8.9 g/dL (11.5-16.0); IMMATURE GRAN PERCENT AUTO 1 % (0-1); LYMPHOCYTES ABSOLUTE AUTO 0.62 K/mm3 (0.84-5.20); LYMPHOCYTES PERCENT AUTO 6 % (21-46); MONOCYTES ABSOLUTE AUTO 1.27 K/mm3 (0.16-1.47); MONOCYTES PERCENT AUTO 12 % (4-13); Mean Corpuscular HGB 25.9 pg (26.0-34.0); Mean Corpuscular HGB Conc 28.2 g/dL (31.5-36.5); Mean Corpuscular Volume 92 fL (80-100); Mean Platelet Volume 10.4 fL (9.1-12.4); NEUTROPHILS ABSOLUTE AUTO 8.99 K/mm3 (1.96-9.15); NEUTROPHILS PERCENT AUTO 82 % (41-73); Platelet Count 356 K/mm3 (150-400); RDW Coefficient Variation 17.1 % (11.7-14.2); RDW Standard Deviation 57.6 fL (35.1-46.3); Red Blood Cell Count 3.43 M/mm3 (3.80-5.20); White Blood Cell Count 11.01 K/mm3 (4.00-11.30)
[2020-01-24 12:44] LABS: Anion Gap 1 mmol/L (6-16); Blood Urea Nitrogen 18 mg/dL (8-24); Bun/Creatinine Ratio 27.5 (12.0-20.0); CO2, Blood 34 mmol/L (21-32); Calcium, Blood 8.1 mg/dL (8.5-10.1); Chloride, Blood 108 mmol/L (98-108); Creatinine, Blood 0.65 mg/dL (0.40-1.00); Glomerular Filtration Rate >60 (60-); Glucose, Blood 76 mg/dL (70-99); Potassium, Blood 4.8 mmol/L (3.5-5.5); Sodium, Blood 143 mmol/L (136-145); Troponin I <0.015 ng/mL (0.000-0.040)
[2020-01-24 13:33] LABS: PCO2 Arterial 65.3 mmHg (35-45); PO2 Arterial 71.4 mmHg (80-100); pH Blood Arterial 7.34 (7.35-7.45)
[2020-01-24 14:08] LABS: Source, Urine Clean Catch
[2020-01-24 14:11] LABS: Appearance, Urine Clear (Clear); Bilirubin, Urine Neg (Neg); Blood, Urine Neg (Neg); Color, Urine Yellow (P-Yellow); Glucose Qualitative, Urine Neg (Neg); Ketones, Urine Neg (Neg); Leukocyte Esterase, Urine Neg (Neg); Nitrite, Urine Neg (Neg); Protein, Urine Neg (Neg); Urobilinogen, Urine NORM (Normal)
[2020-01-24] MEDS ORDERED: ANORO ELLIPTA1 EAC1 INH (16:17)
--- NOTE | 2020-01-24 18:32 | NUR ---
PATIENT ARRIVED TO ROOM VIA BED WITH RN ESCORT AT 1720. PT SOB ON 4L AT 99%. CRITICAL LACTIC ACID CALLED TO DR ABEBE AT 1808, NO NEW ORDERS. DR ABEBE GAVE TELEPHONE ORDERS TO DC SEND OUT LAB FOR COVID 19 AND TO TAKE PATIENT OUT OF ISOLATION. RAPID COVID NEGATIVE. DURING ADMISSION SCREENINGS, PT WAS NOT PUT INTO ISO R/T NEGATIVE RAPID COVID 19. FAN AND FOOD PROVIDED TO PATIENT. PT REMAINS SON, 99% ON 3L. UP WITH 1 ASSIST TO BSC.
[2020-01-24] MEDS ORDERED: VITAMIN D PO (20:28)
[2020-01-24] MEDS ORDERED: IBUP600 PO (20:29)
[2020-01-24] MEDS ORDERED: CLOT10 MT (20:30)
[2020-01-24] MEDS ORDERED: KETO15TC TOP (20:30)
[2020-01-24] MEDS ORDERED: Voltaren100 GM TOP (20:31)
[2020-01-24] MEDS ORDERED: Betamethasone V15 GM TOP (20:34)
--- NOTE | 2020-01-25 04:16 | NUR ---
SUMMARY: PT A/OX3, SPECIFIES NEEDS AND CALLS APPROPRIATELY. SHE'S A SBA TO BSC W/STABLE GAIT OBSERVED. PT REMAINS ON 3L O2 W/SPO2 WNL. SHE DENIED DYSPNEA BUT HAS SHALLOW RESPS AND SOME SOB AT REST THAT WORSENS W/ACTIVITY AND BED MOBILITY. SHE BECOMES ANXIOUS AT TIMES R/T SOB BUT SAYS FAN AT BEDSIDE HELPS. RT PROVIDED BX MEDS PER EMAR AND PRN PER PT REQUEST. LS ARE DIM W/FAINT CRACKLES IN BASES. SCHEDULED SOLUMEDROL RECIEVED. SHE REMAINS NSR AT 70'S BPM PER TELEMETRY. 1800 ML FR MAINTAINED PER MD NOTE. NO ACUTE CHANGES, VSS AND AFEBRILE. WCTM AND REPORT TO DAY RN.
[2020-01-25 05:10] LABS: BASOPHILS ABSOLUTE AUTO 0.03 K/mm3 (0.00-0.23); BASOPHILS PERCENT AUTO 0 % (0-2); EOSINOPHILS PERCENT AUTO 0 % (0-6); Hematocrit 32.2 % (33.0-51.0); Hemoglobin 8.9 g/dL (11.5-16.0); IMMATURE GRAN PERCENT AUTO 1 % (0-1); LYMPHOCYTES ABSOLUTE AUTO 0.31 K/mm3 (0.84-5.20); LYMPHOCYTES PERCENT AUTO 3 % (21-46); MONOCYTES ABSOLUTE AUTO 0.27 K/mm3 (0.16-1.47); MONOCYTES PERCENT AUTO 2 % (4-13); Mean Corpuscular HGB 25.5 pg (26.0-34.0); Mean Corpuscular HGB Conc 27.6 g/dL (31.5-36.5); Mean Corpuscular Volume 92 fL (80-100); Mean Platelet Volume 10.9 fL (9.1-12.4); NEUTROPHILS ABSOLUTE AUTO 10.76 K/mm3 (1.96-9.15); NEUTROPHILS PERCENT AUTO 94 % (41-73); Platelet Count 380 K/mm3 (150-400); RDW Coefficient Variation 17.1 % (11.7-14.2); RDW Standard Deviation 58.3 fL (35.1-46.3); Red Blood Cell Count 3.49 M/mm3 (3.80-5.20); White Blood Cell Count 11.47 K/mm3 (4.00-11.30)
--- NOTE | 2020-01-25 05:22 | NUR ---
PT REFUSED RESP PANEL THIS SHIFT D/T WANTING TO SLEEP UNDISTURBED. WILL HAVE DAY SHIFT RE-EVALUATE.
[2020-01-25 05:36] LABS: Anion Gap 0 mmol/L (6-16); Blood Urea Nitrogen 24 mg/dL (8-24); Bun/Creatinine Ratio 31.5 (12.0-20.0); CO2, Blood 36 mmol/L (21-32); Calcium, Blood 7.2 mg/dL (8.5-10.1); Chloride, Blood 107 mmol/L (98-108); Creatinine, Blood 0.76 mg/dL (0.40-1.00); Glomerular Filtration Rate >60 (60-); Glucose, Blood 140 mg/dL (70-99); Potassium, Blood 5.1 mmol/L (3.5-5.5); Sodium, Blood 143 mmol/L (136-145)
--- NOTE | 2020-01-25 12:54 | NUR ---
PT REPORTED INCREASED SOB, RR 24, SPO2 82% ON 3L O2 NC. O2 INCREASED TO 5L O2 NC, SPO2 CAME UP TO 93%. BILATERAL LUNGS WIH INSPIRATIONAL RUB. PT REQUESTED TO BE PLACED ON BIPAP, RT NOTIFIED, PT IS CURRENTLY ON BIPAP AND TOLERATING WELL. PT QUESTIONED EARLIER BY THIS RN IN REGARDS TO POLST FORM SHOWING CODE STATUS OF DNR, PT ASKED IF SHE ALSO WANTED TO BE DNR DURING HOSPITALIZATION, PT REPORTED THAT SHE DID WANT TO BE DNR. DR. STANLEY NOTIFIED OF THE ABOVE.
[2020-01-25 17:59] LABS: Adenovirus Not Detected (NOT DETECT); Coronavirus 229E Not Detected (NOT DETECT); Coronavirus HKU1 Not Detected (NOT DETECT); Coronavirus NL63 Not Detected (NOT DETECT); Coronavirus OC43 Not Detected (NOT DETECT); Human Metapneumovirus Not Detected (NOT DETECT); Human Rhinovirus/Enterovirus Not Detected (NOT DETECT); Influenza A/2009-H1 Not Detected (NOT DETECT); Influenza A/H1 Not Detected (NOT DETECT); Influenza A/H3 Not Detected (NOT DETECT); Influenza B Not Detected (NOT DETECT)
[2020-01-25 18:00] LABS: Bordetella pertussis Not Detected (NOT DETECT); Chlamydophila pneumoniae Not Detected (NOT DETECT); Mycoplasma pneumoniae Not Detected (NOT DETECT); Parainfluenza Virus 1 Not Detected (NOT DETECT); Parainfluenza Virus 2 Not Detected (NOT DETECT); Parainfluenza Virus 3 Not Detected (NOT DETECT); Parainfluenza Virus 4 Not Detected (NOT DETECT); Respiratory Syncytial Virus Not Detected (NOT DETECT)
--- NOTE | 2020-01-25 18:14 | NUR ---
SHIFT SUMMARY PT A&OX3, DID NOT KNOW THE DATE. PT BECOMES SOB WHEN MOVING IN BED. PT WILL REQUEST BIPAP WHEN FEELING SHORT OF BREATH, EVEN IN O2 SATURATION ABOVE 95%. ENCOURAGED PT TO FOCUS ON BREATHING TECHNIQUES BEFORE PUTTING BIPAP ON. BIPAP WAS GIVEN DURING SHIFT WHEN O2 SATURATION WAS IN HIGH 80'S. PT IS NOW ON 3L O2 NC PT DID NOT COMPLAIN OF N/V, PAIN. PT WONDERED WHY SHE WAS NOT RECEIVING HOME MEDS, NOTIFIED AND AWAITING ORDERS.
--- NOTE | 2020-01-26 07:16 | NUR ---
01/26/20 0610 PT AWAKEN AND GETS VERY ANXIOUS ABOUT HER BREATHING. CONT. PULSE OX IN PLACE AND RN REASSURED HER THAT O2 WAS GOOD. ANY MOVEMENT INCREASES HER SOB. VITALS STABLE. RESP. TX. GIVEN PRN SOB. ASSISTED UP TO BSC WITH HELP THROUGHTOUT THE NIGHT FOR VOIDINGS. MEDICATED ONCE FOR ANXIETY LAST NIGHT.
--- NOTE | 2020-01-26 19:01 | NUR ---
SHIFT SUMMARY: ALERT, ANXIOUS DURING THIS SHIFT. BREATH SOUNDS DIM WITH CRACKLES, ON O2 @ 3 L/MIN NC AND BIPAP WITH O2 BLEED IN PRN AND WHILE SLEEPING. HAS INCREASED WOB, TACHYPNEA, ACCESSORY MUSCLE USE, AND DYSPNEIC AT REST. WAS CONCERNED ABOUT NOT GETTING HOME MEDICATIONS ("I TAKE ABOUT 20 IN THE MORNING AND 5 AT NIGHT"); MEDS ORDERED BY DR. STANLEY AND PT EDUCATED ABOUT MEDICATIONS AND ADMIN TIMES. USING BSC WITH MOD ASSIST. EATING ABOUT 50% OF MEALS. DENIES PAIN, N/V.
--- NOTE | 2020-01-26 22:41 | NUR ---
01/26/20 2210 PT AWAKENED SO RN COULD ADMINISTER PM MEDS. BIPAP AND CONT. PULSE OFF IN PLACE. PT DEMANDING TO GET UP TO BSC iMMEDIATELY. PT WAS RUDE TOWARD RN AND UPSET ABOUT HAVING TO TAKE MEDS FIRST. RN ASSISTED HER TO BSC FOR VOIDING AND PT WAS ALSO INCONTINENT OF URINE. GOWN AND LINENS CHANGED. RN ASSISTED HER BACK TO BED. ATIVAN PO WAS GIVEN FOR ANXIETY. 02 SATS=93% ON 3LPM OF OXYGEN.
--- NOTE | 2020-01-27 07:29 | NUR ---
01/27/20 0645 PT ON O2 AT 3LPM VIA N/C NOW. SLEPT ON AND OFF. PT HAS EXTREME ANXIETY WHEN SHE AWAKENS AND AGRAVATES HER SOB.CONTINUOUS PULSE OXIMETER ON AT ALL TIMES. O2 LEVELS ARE BETTER WHEN SHE SLEEPS. WHEN ANXIOUS O2 SATS RUN AROUND 88%. REQUESTS HELP TO BSC. WEAK BUT ABLE TO GET UP WITH HELP FOR VOIDINGS. DENIES ANY DISCOMFORT. PT REFUSED TO TURN ON SIDE SHE STATES SHE "CANNOT BREATHE" WHEN ON HER SIDE.
--- NOTE | 2020-01-27 08:01 | NUR ---
TELE MX REPORT MULT RUNS V-TACH. BRAKESHOE REPAIRER NOTIFIED. DR STANLEY NOTIFIED, ORDER BMP & MG, STATE WILL BE UP TO SEE PT. SHE IS SMILING, STATE NO C/P. RT IN FOR NEB TX, PT SOB, PLACE HER ON BIPAP.
[2020-01-27 09:20] LABS: Anion Gap 3 mmol/L (6-16); Blood Urea Nitrogen 36 mg/dL (8-24); Bun/Creatinine Ratio 51.2 (12.0-20.0); CO2, Blood 35 mmol/L (21-32); Calcium, Blood 7.2 mg/dL (8.5-10.1); Chloride, Blood 100 mmol/L (98-108); Glomerular Filtration Rate >60 (60-); Glucose, Blood 150 mg/dL (70-99); Magnesium, Blood 2.8 mg/dL (1.6-2.4); Potassium, Blood 4.2 mmol/L (3.5-5.5); Sodium, Blood 138 mmol/L (136-145)
--- NOTE | 2020-01-27 16:54 | NUR ---
SUMMARY PT IS A/O X 3, PLEASANT AFFECT. SHE STATE SHORTNESS OF BREATH @ REST, @ X'S ANXIETY R/T. SHE HAS ALTERNATED BETWEEN 2L VIA N/C & BIPAP w 3L TODAY, RT ASSISTING WITH O2 NEEDS & NEB TX'S. DR STANLEY IN TO SEE HER THIS AM, REVIEW TELE REPORTS OF V-TACH, CHECK BMP & MG-WNL THEN D/C TELE THIS AFTERNOON. ADD CLONAZAPAM BID SCHEDULED FOR ANXIETY RELIEF/CONTROL. REVIEW DX & TX w PT, STATE NEED FOR HOME TRILOGY MACHINE, STATE THIS MAY TAKE A FEW DAYS FOR CARE MANAGEMENT TO ARRANGE. STATE PT IS CO2 RETAINER, MX TO KEEP SATS 88-92% PT WAS 100% PACED PRIOR TO TELE D/C'D, VSS/AFEBRILE. UP w 1 ASSIST.
--- NOTE | 2020-01-27 18:37 | NUR ---
Pt resting in bed upon arrival. Pt is A&O and denies pain at this time. Pt reports pain with ambulation in left leg and left arm. Pt appears dypneic as evidenced by work of breathing, respiratory rate, and speaking in 2 to 3 word sentences. Engaged in therapeutic listening as Pt discusses her decline and requiring more assistance with her ADLs. Educated Pt on disease process and tracjectory of disease. Discussed option as an option and educated on hospice philosophy. Pt reports interest in option and would also like assistance being placed in a higher level of care with hospice. Pt reports concern that her children can no longer care for her properly. Pt reports being established with Medicaid already. Instructed Pt request and concerns will be relayed to Supply Chain Technician Rohini. Reinforced education on hospice philosophy and confirmed her wishes for hospice. Received verbal permission to contact family and relay conversation. Pt request this television writer to contact her brother or sister in law [facility]. Pt reports no other concerns at this time. Called and spoke with Pt's sister in law [facility]. Engaged in therapeutic discussion regarding Pt's condition and disease process. Relayed conversation that took place between this television writer and Pt including hospice. [facility] reports having this conversation with Pt recently and is in agreement with Pt's wishes. [facility] expresses appreciation of call and reports no other concerns at this time. Called Dr Egan and provided update regarding Pt's wishes. Palliative Care will F/U for therapeutic visits.
--- NOTE | 2020-01-27 21:45 | NUR ---
194 PT LYING IN BED, REPORTS CHRONIC PAIN IN L HIP/ARM/SHOULDER-WILL GIVE TYENOL AND REASSESS, REPORTS SOB THAT INCREASES WITH EXERTION-ON 2L NC O2 AT 96%, REPORTS CHRONIC N/T IN R TOES. REQUESTED AND RECIEVED ICE PACK TO L FA. NO OTHER APPARENT SIGNS OF DISTRESS. CALL LIGHT IS IN REACH.
--- NOTE | 2020-01-27 22:11 | NUR ---
PT LYING IN BED, EYES CLOSED, APPEARS TO BE RESTING. BREATHING IS EVEN, UNLABORED. NO APPARENT SIGNS OF DISTRESS. CALL LIGHT IS IN REACH.
--- NOTE | 2020-01-27 23:57 | NUR ---
2312 PT LYING IN BED, EYES CLOSED, WAKES EASILY TO VERBAL STIMULI. NO APPARENT SIGNS OF DISTRESS. CALL LIGHT IS IN REACH.
--- NOTE | 2020-01-28 01:34 | NUR ---
PT LYING IN BED, EYES CLOSED, APPEARS TO BE RESTING. BREATHING IS EVEN, UNLABORED. NO APPARENT SIGNS OF DISTRESS. CALL LIGHT IS IN REACH.
--- NOTE | 2020-01-28 04:04 | NUR ---
ASSITED PT TO BSC AND BACK TO BED AGAIN, CHANGED PT'S PULL UPS. PT DENIES NEED FOR ANYTHING ELSE AT THIS TIME. NO OTHER APPARENT SIGNS OF DISTRESS. CALL LIGHT IS IN REACH.
--- NOTE | 2020-01-28 04:05 | NUR ---
PT IS AAO X 4, ON 2L O2 NC AT 96%. REPORTS SOB THAT INCREASES WITH EXERTION. REPORTS PAIN IN L HIP/ARM/SHOULDER, GOT TYLENOL AT HS AND AND ICE PACK. SCD'S.
--- NOTE | 2020-01-28 05:32 | NUR ---
PT LYING IN BED, EYES CLOSED, APPEARS TO BE RESTING. BREATHING IS EVEN, UNLABORED. NO APPARENT SIGNS OF DISTRESS. CALL LIGHT IS IN REACH. NO OTHER CHANGES THIS SHIFT.
--- NOTE | 2020-01-28 10:51 | NUR ---
Multiple visits this AM. Pt resting in bed upon arrival. Pt appears dyspneic as evidenced by work of breathing and respiratory rate. Engaged in therapeutic listening and discussion. Pt confirms her wishes are the same of wanting to be placed in higher level of care with hospice. Pt reports no preference for hospice agencies. Called and spoke with sister in law Aurelia and she reports family has no preference either. Dr Egan in to visit with Pt. Dr Egan updates Pt on plan of care and assesses Pt's understanding of hospice. Plan to continue current treatment plan and add low dose Roxanol for SOB and pain. Spoke with Cadd Drafter Rohini, discussed case, and Pt's wishes for placement with hospice. Placed order for Roxanol 5mg SL Q3 hours PRN for pain and air hunger per V/O from Dr Egan. Palliative Care will remain available.
--- NOTE | 2020-01-28 11:10 | NUR ---
PT EXPERIENCE MID CHEST PAIN/PRESSURE 7/10, SHE IS NOT SOB OR DIAPHORETIC, BP 129/81, HR 70, BIOX 96% 2L. PRN ROXANOL 5MG GIVEN, WITHIN MINUTES SHE STATE PAIN RELIEVED, 0/10. DR STANLEY NOTIFIED, NO NEW ORDERS.
--- NOTE | 2020-01-28 16:33 | NUR ---
SUMMARY PT IS A/O X3-4. PLEASANT AFFECT. SHE STATE MILD SOB @ REST TODAY, STATE BREATHING SOMEWHAT IMPROVED. STATE MILD ANXIETY-IMPROVED, SCHEDULED CLONAZAPAM GIVEN THIS AM EFFECTIVE. LS DECREASED T/O, CLEAR ON LEFT HOWEVER CRACKLES ON RIGHT THIS AM. SHE HAS USED BIPAP INTERMITTANTLY TODAY WHILE NAPPING, RT MANABING. PALLIATIVE CARE RN IN AGAIN TODAY, PT IS RECEPTIVE, CONSIDERING HOSPICE TX @ D/C. SHE HAD AN INCIDENCE OF CHEST PAIN THIS AM, RELEIVED w ROXANOL 5MG. DR STANLEY STATE NO NEW ORDERS/INTERVENTIONS, PT IS DNR.
--- NOTE | 2020-01-29 02:57 | NUR ---
CHEST PAIN PT BEGAN COMPLAINING OF CHEST PAIN AROUND 0125. PT WAS SOB, AND REPORTED HER PAIN BETWEEN 8-9. PER [facility] RN REPORT. PT HAD EXPERIENCED CHEST PAIN DURING THE DAY. PROVIDER WAS NOTIFIED AND ROXANOL ORDERED FOR PT AND WAS ADMINISTERED. THIS WAS EFFECTIVE FOR PT CHEST PAIN. ADMINISTERED THE ROXANOL AT 0132. PT PAIN WENT FROM 8/9 TO A 4 WITHIN MINUTES, AND PT WAS STARTING TO FALL ASLEEP. VITALS OBTAINED AND WERE STABLE. DR. ROBERTSON CALLED AND AT 0145, RECEIVED CALL BACK FROM PHYSICAN AT 0154. NOTIFIED HIM OF PT CHEST PAIN. NO NEW ORDERS WERE GIVEN. IN[employer]GRATION LE[employer] [place] [employer]OR NOTIFIED OF PT CHEST PAIN. PT HAD FULLY FALLEN BACK TO [facility] AT 0200. SHE IS STILL RESTING AT THIS TIME WITHOUT DISTRESS.
--- NOTE | 2020-01-29 04:09 | NUR ---
SHIFT SUMMARY PT HAS RESTED FOR MOST OF THE NIGHT. SHE HAD AN EPISODE OF CHEST PAIN THAT WAS RELIEVED WITH ROXANOL. SEE NURSING NOTES. PROVIDER AWARE. PT REMAINS ON 2L O2, SATS WNL. PT WORE HER BIPAP THAT WAS DELIVERED BY [employer] YESTERDAY AND SHE TOLERATED WELL. NO OTHER CHANGES TO REPORT. BED IN LOWEST POSITION, CALL LIGHT WITHIN REACH. WILL CONTINUE TO MONITOR AND REPORT TO ONCOMING RN.
--- NOTE | 2020-01-29 04:33 | NUR ---
CHEST PAIN PT CHEST PAIN RETURNED A FEW HOURS AFTER RECIVING ROXANOL. VITALS STABLE, DR. ROBERTSON CALLED AND NOTIFIED. HE STATES JUST TO GIVE THE ROXANOL FOR PAIN. NO ADDITIONAL ORDERS GIVEN. PT STAES PAIN 5 (0-10), RESP E/U. SITTING UP IN BED EATING YOGURT.
--- NOTE | 2020-01-29 05:09 | NUR ---
CHEST PAIN PT NOW SLEEPING AFTER ROXANOL WITH NO S/S OF DISTRESS.
--- NOTE | 2020-01-29 15:43 | NUR ---
PATIENT HAS HAD A DIFFICULT DAY. SHE STARTED OUT COMPLAINING OF CHEST PAIN AND WAS GIVEN PRN ROXANOL AND SHORTLY AFTER HER ANTI-ANXIETY MEDICATION. THE MEDICATIONS SEEMS TO PROVIDE SOME RELIEF FOR A SHORT TIME, HOWEVER SHE STARTED TO COMPLAIN OF THE PAIN AGAIN DR BALL WAS ROUNDING. I ASKED DR BALL FOR AN ORDER OF NITRO AND HE PROVIDED ORDERS REQUESTED. THE NITRO SEEMED TO BE MUCH MORE EFFECTIVE FOR THE CHEST PAIN THEN THE ROXANOL. THE PATIENT SLEPT BETWEEN PAIN SPELLS. DIDNT TAKE ANY OF HER MORNING MEDS D/T NOT FEELING WELL. THE PATIENT IS CURRENTLY RESTING IN HER ROOM AT THIS TIME. WILL CONTINUE TO MONITOR AND PROVIDE CARE NEEDED.
--- NOTE | 2020-01-30 05:10 | NUR ---
SHIFT SUMMARY: 69 Y/O FEMALE RESTED COMFORTABLY FIRST 3/4 OF SHIFT AND THEN C/O ABD DISCOMFORT RATED 7/10 WITH ROXANOL 5MG IVP GIVEN WITH MINIMAL RELIEF; PT APPEARS TO BE VERY ANXIOUS AT TIMES WITH ATIVAN 0.5MG PO GIVEN; PT ALSO GIVEN NITROGLYCERIN 0.4MG SL WITH RELIEF FINALLY FELT; PT WEARING O2 AT 3L/M PER NASAL CANNULA; PT REQUIRES MUCH ASSISTANCE WITH ALL ADLS FROM NURSING STAFF; BED ALARM APPLIED, BED LOW POSITION WITH CALL LIGHT AT SIDE.
--- NOTE | 2020-01-30 16:53 | NUR ---
PATIENT HAS BEEN REALLY LETHARGIC AND SLEPT THE MAJORITY OF THE SHIFT. SHE HAS ONLY COMPLAINED OF CHEST PAIN ONCE TODAY WHICH NITRO RESOLVED. PATIENT TOOK ALL HER PRESCRIBED MEDS TODAY WITH THE EXCEPTION OF THE LOSENGES WHICH SHE STATES MAKES HER STOMACH SICK. BP WAS LOW THIS MORNING BUT PERFECTLY FINE THIS AFTERNOON. THE PATIENT CALLS FOR STAFF ASSIST NEEDED. PATIENT RESTING IN ROOM AT THIS TIME.
--- NOTE | 2020-01-30 21:27 | NUR ---
THIS NURSE WAS CALLED BY CHARGE NURSE THAT PT HAD CALLED SISTER IN LAW C/O SOB; NO CALLS EVER RECEIVED AND NO CALL LIGHTS WERE NOTED ON IN ROOM WHEN THIS NURSE WENT INTO ROOM; PT O2 SAT WAS 98% AT 2L/M PER NASAL CANNULA; RESPIRATORY THERAPY AT SIDE FOR TREATMENT.
--- NOTE | 2020-01-31 04:04 | NUR ---
SHIFT SUMMARY: 69 Y/O FEMALE RESTED COMFORTABLY ALL SHIFT; PT ALERT AND ORIENTED X 2; C/O SOB AT TIMES, HOWEVER TENDS TO REMOVE O2 AND NEEDS NURSING STAFF TO REAPPLY EQUIPMENT; PT AT TIMES VERY FORGETFUL AND REQUIRED FREQUENT ASSISTANCE WITH ALL ADLS (PT REQUIRED THIS NURSE TO CUT UP ALL HER EVENING DINNER TRAY FOOD TO INCLUDE SETTING UP ENTIRE TRAY); PT C/O GENERALIZED PAIN AND WAS MEDICATED WITH ROXANOL 5MG IVP X 1 WITH GOOD RELIEF FELT; PT ABLE TO TRANSFER/PIVOT ONTO BSC X 1 STANDBY ASSIST; BED ALARM APPLIED, BED LOW POSITION WITH CALL LIGHT AT SIDE.
--- NOTE | 2020-01-31 18:16 | NUR ---
SHIFT SUMMARY: NO ACUTE EVENTS THIS SHIFT. PATIENT TEARFUL AT START OF SHIFT, WANTED TO SEE HER DAUGHTER. SINCE PT GOING HOME ON HOSPICE, PERMISSION GIVEN FOR DAUGHTER TO VISIT TODAY, WHICH MADE YAW VERY HAPPY. C/O L HIP AND CHEST PAIN; WAS MEDICATED WITH ROXANOL X 1 WITH GOOD EFFECT. ON 2 L/MIN NC WITH SATS 85-90%, USING BIPAP PRN. ATE 100% LUNCH TRAY, THEN BECAME NAUSEATED BUT NO VOMITING, DID NOT WANT DINNER. PLAN IS TO D/C WITH HOSPICE, WANTS TO GO HOME NOT TO SNF.
--- NOTE | 2020-01-31 21:01 | NUR ---
Review of plan of care with staff for follow up
--- NOTE | 2020-02-01 06:30 | NUR ---
SHIFT SUMMARY A/O, ABLE TO MAKE NEEDS KNOWN. COOPERATIVE WITH CARE. CALLS AND ANSWERS QUESTIONS APPROPRIATELY. C/O PAIN/DISCOMFORT X1; MEDICATED PER EMAR. UP WITH 1P ASSIST TO BSC; SHOWER GIVEN. UTILIZED TRILOGY BIPAP FOR SHORT PERIOD OTHERWISE ON O2 VIA NC @ 2LPM. NO ACUTE CHANGES NOTED OVERNIGHT. VSS/AFEBRILE. BED REMAINS IN LOWEST POSITION; ALARM ON. CALL LIGHT AND BELONGINGS WITHIN REACH. WCTM. REPORT TO ONCOMING RN.
--- NOTE | 2020-02-01 13:29 | NUR ---
Pal Care visit: Called by RN with request to visit pt and family members with some questions regarding pt's dx and status. Visit made just before noon. Brando at bedside assisting pt to commode. A family member reported being told by pt that she had pancreatic cancer. Pt does not remember being told this or telling her family member. I reviewed pt's end stage lung disease and heart disease with pt/family. Pt is smiling today and breathing with much less dyspnea than normal. She denies pain other than normal chronic pain and aches. She is anxious to go home but is not really clear about what hospice is. I reviewed s/s management in her home and hospice technical support coordinator visiting with her. She confirms that is what she wants. She has been on HH services with [facility] and states she does not want them anymore. She is happy to hear that [facility] services is working on her dc planning and follow up care with her WOLF, Aurelia. Pt gives me permission to discuss her care and dx with her family in the room. I left the room to review recent medical records for her. I reported to family and pt that I found no mention of pancreatic cancer in the Dr's progress note. I also discussed that her cardiopulmonary status would most likely prevent her from receiving tx for cancer even if she did have a cancer dx. Brando understands that pt's respiratory failure is long standing and has worsened significantly over the past couple of years. Pt is happily eating her lunch and continues to be pleasant and smiling. Reported on my visit to pt's RN and [facility] Ray[facility]. She is meeting with pt's proxy decision maker and cg, Aurelia, later today and then will visit pt in her room. They are working with [facility] cho[facility] on getting pt transferred there with hospice as soon as possible.
--- NOTE | 2020-02-01 18:44 | NUR ---
PT AOX3 AND COOPERATIVE OF CARE. NO DISTRESS NOTED CAN LET HER NEEDS BE KNOWN. PT HAS HAD FAMILY TO VISIT TODAY. PT REPORTED PAIN ON L HIP AND TREATED PER EMAR. NO DISTRESS NOTED WILL CONTINUE TO MONITOR.
--- NOTE | 2020-02-02 05:01 | NUR ---
SUMMARY: PT A/OX3, SPECIFIES NEEDS AND CALLS APPROPRIATELY. 1P ASSIST REQUIRED FOR T/F'S AND BSC USE. PT PASSING FLATUS BUT NO BM THIS SHIFT. PULLUP CHANGED FOR URGE INCONTINENCE PRN. SHE REMAINS SOB AND DYSPNEIC W/EXERTION AND BECOMES ANXIOUS AT TIMES WHEN HAVING BX DIFFICULTY. PT WAS DESATTING AT START OF SHIFT W/SPO2 LOW 80'S AND WHEEZES AUSCULTATED RT PROVIDED BX TX AND O2 WAS TURNED UP TO 3L O2 VIA NC FOR IMPROVEMENT. FINGER PROBE WAS REPLACED W/EAR PROBE FOR CONTINUED ALARMING AND IS NOW PROVIDING MUCH BETTER BIOX READING. PT WAS TITRATED BACK DOWN TO 2L O2 W/SPO2 NOW 92-98% AND RESPS E/U AT REST. ROXINOL 5MG SL PROVIDED PRN PER PT REQUEST FOR TOLERABLE CONTROL OF L.HIP PAIN. SNACKS RECIEVED PRN. NO ACUTE CHANGES, VSS/AFEBRILE. WCTM AND REPORT TO DAY RN. 1500 ML FR ENFORCED.
--- NOTE | 2020-02-02 12:45 | NUR ---
Summary of two visits and all case conferences with clinical account liaison, LUZ MARIA, RN and today. Pt had indicated early in the day that she wanted to forego hospice services in favor of going home with triligy unit for her ES respiratory failure. During first visit, established with pt that her number 1 priority was to return to her home and be cared for her family and to not be placed in [facility] in [place]. She felt it was too far away and her family would be too far away. Pt asks if she can use a cpap or bipap and Rayne of [facility] will inquire and answer that question. I case conferenced with pt's and RN prior to second visit with Rayne Borjas, Milking Worker. Pt's daughter, Kecia, step-son, Nick and CG Alecia were present. We discussed options and answered questions re: plans for homegoing that are currently in place. Pt continues to waver and become very anxious when discussing end of life care. Coached her with some PLB and slowing down breathing as she became more dyspnic with anxiety. Support and encouragement offered. End result of family meeting is that current d/c plan to go home tomorrow to pt's apartment with family providing care with caregiver remains intact. Pt will not have the trilogy at home but may use a cpap if she already has one. Rayne, clinical account liaison, is coordinating all of the medication/DME/transportation needs and has remained in close contact with family and POA for HCAurelia. Family seem calm and capable and verbalize a good understanding of what to expect and the care needed at home. Pt's CG, Alecia has worked for HH/Hospice for many years and is also familiar and comfortable providing EOL care. She and pt have a clear fondness and connection to eachother. It appears multiple family members will be assisting each other, Alecia and Aurelia in providing round the clock attendance and care. Will plan to see pt again in am for s/s assessment and support before dc/transport planned at 1030 am.
--- NOTE | 2020-02-02 16:35 | NUR ---
SUMMARY THIS AM CAREGIVER IN TO VISIT, STATE MANY QUESTIONS/CONCERNS. DR STANLEY IN TO ASSESS PT & ADDRESS CONCERNS, PT IS SOMEWHAT EMOTIONAL R/T PLAN FOR HOSPICE. DR STANLEY ARRANGE FAMILY MTG w PT, FAMILY, PALLIATIVE CARE RN, HOSPICE PROGRAM TRAINER, & CAREGIVE TO ASSURE ALL PARTIES AGREEABLE & UP TO DATE ON PLAN. AFTERWARDS PALLIATIVE CARE STATE PLAN WILL BE TO PROCEED w PLAN FOR D/C HOME w HOSPICE TOMORROW. PT HAS BEEN FULLY INVOLVED IN PLAN. SHE STATE SOME ANXIETY, HAVE GIVEN SCHEDULED CLONIPIN FOR RELIEF. SHE STATE BREATHING CONTINUES IMPROVED, BIOX >90% 2L, SHE DOES GET SOB w EXERTION. UP TO CHAIR TODAY FOR LUNCH, INTERMITTANTLY UP TO BSC. SHE STATE NO BM X 3 DAYS, COLACE GIVEN. SHE CONTINUES TO STATE L HIP, SHOULDER & BACK PAIN. HAVE GIVEN ROXANOL 5MG X2 FOR PAIN CONTROL/RELIEF.
--- NOTE | 2020-02-03 05:17 | NUR ---
SUMMARY: A/OX3, SPECIFIES NEEDS AND PLEASANT AND COOPERATIVE W/CARE. SHE BEGAN SHIFT SLIGHTLY ANXIOUS AND TEARFUL RE:CONCERN FOR D/C HOME W/HOSPICE D/T FEAR THAT "NEEDS WON'T BE MET" RESULT OF "NOT HAVING BIPAP OR TRILOGY". SUPPORT AND REASSURANCE PROVIDED AND PT CALMED W/FURTHER DISCUSSION. PT STILL BECOMES SOB W/EXERTION AND BED MOBILITY BUT BX CONT'S TO IMPROVE. SHE WASN'T OBSERVED TO DESAT THIS SHIFT AND REMAINS ON 2L O2 VIA NC W/SPO2>90%. INTERMITTENT WHEEZES AUSCULATED BUT RT PROVIDED BX TX PER EMAR FOR GOOD EFFECT. 1500 ML FR ENFORCED AND SNACKS RECIEVED PRN PER PT REQUEST. SHE'S 1P ASSIST TO BSC AND WAS PROVIDED MOM PRN BUT STILL HASN'T HAD A BM THIS SHIFT. ROXINOL RECIEVED X2 DOSES PRN FOR TOLERABLE RELIEF OF CHRONIC L.HIP AND BACK PAIN. NO ACUTE CHANGES, VSS/AFEBRILE. WCTM AND REPORT TO DAY RN.
--- NOTE | 2020-02-03 09:30 | NUR ---
PAL CARE VISIT MADE: Pt dozing in bed but woke easily to voice. She is happy to be going home today and expressing continued anxiety about having everything she needs there. We discussed medications and she is requesting pain medications prior to transport. I spoke with RN who was on her way to get medication per eMar for anxiety now and will give Roxinol around 10 with transport scheduled for 1030. Pt is near or a little higher level than baseline with her dyspnea and anxiety. Pt and I said our good-byes. I have been involved in her care off and on for many years as an in-pt and in OP cardiopulmonary rehab before that. Pt appropriately tearful and emotional at times but seems in good spirits and is looking forward to spending time with mulptiple family members.
[2020-02-03] MEDS ORDERED: LORA.5 PO (10:06)
[2020-02-03] MEDS ORDERED: MORP20L SL (10:07)
--- NOTE | 2020-02-03 10:51 | NUR ---
PATIENT DISCHARGED TO HOME VIA [facility] W/ [facility]PORT. HAS ALL BELONGINGS. O2 @ 2 L/MIN NC.
== END 2020-02-03 10:44 | disposition hospice, home (50) | DRG 189 ==
LOC: ER 11:47 → MEDS 11:48
PROVIDERS: Emergency Medicine; Hospitalist; ADMIT Internal Medicine
PROC: 5A09357 Assistance with Respiratory Ventilation, Less than 24 Consecutive Hours, Continuous Positive Airway Pressure (ICD-10-PCS; principal; 2020-01-31)
DX: J96.21 Acute and chronic respiratory failure with hypoxia (principal); J44.1 Chronic obstructive pulmonary disease with (acute) exacerbation; I47.2 Ventricular tachycardia; I50.42 Chronic combined systolic (congestive) and diastolic (congestive) heart failure; I11.0 Hypertensive heart disease with heart failure; J96.22 Acute and chronic respiratory failure with hypercapnia; J44.9 Chronic obstructive pulmonary disease, unspecified; I25.10 Atherosclerotic heart disease of native coronary artery without angina pectoris; I48.0 Paroxysmal atrial fibrillation; F43.10 Post-traumatic stress disorder, unspecified; I27.20 Pulmonary hypertension, unspecified; I05.2 Rheumatic mitral stenosis with insufficiency; G25.81 Restless legs syndrome; Z87.891 Personal history of nicotine dependence; Z95.0 Presence of cardiac pacemaker; Z66 Do not resuscitate; Z99.81 Dependence on supplemental oxygen; Z95.5 Presence of coronary angioplasty implant and graft; D50.9 Iron deficiency anemia, unspecified; F41.1 Generalized anxiety disorder; F32.9 Major depressive disorder, single episode, unspecified
CPT/HCPCS: 0099U; 36415; 36600; 71045; 80048; 81003; 82803; 82947; 83605; 83735; 83880; 84484; 85025; 87040; 93005; 93010; 94640; 94644; 94660; 94664; 94668; 94760; 94762; 96361; 96365; 96367; 96375; 96376; 98960; 99285-25; A9270; A9270-GY; G0378; J0456; J0696; J1940; J2405; J2930; J7030; J7050; J7512; U0002